=== PATIENT | male | born 1945 | race Caucasian/White ===

== ENCOUNTER 2021-02-16 10:12 | Outpatient (REF) | payer MEDICARE, SELFPAY ==
[2021-02-16 10:16] LABS: MANUAL DIFF FLAG NO
[2021-02-16 10:52] LABS: Basophils Percent Auto 0.4 % (0-2); Eosinophils Absolute Auto 0.1 X10*3/uL (0.0-0.4); Hematocrit 37.6 % (42-52); Hemoglobin 12.8 g/dl (14.0-18.0); Imm Gran Abs Auto 0.02 X10*3/uL (0.00-0.03); Imm Gran Pct Auto 0.3 % (0.0-0.4); Lymphocytes Absolute Auto 1.3 X10*3/uL (1.2-4.9); Lymphocytes Percent Auto 19.2 % (20-40); Mean Corpuscular Hemoglobin 32.4 pg (27.0-33.0); Mean Corpuscular Volume 95.2 fL (80-98); Mean Platelet Volume 10.1 fL (9.4-12.4); Monocytes Absolute Auto 0.6 X10*3/uL (0.1-1.2); Monocytes Percent Auto 9.2 % (2-11); Neutrophils Absolute Auto 4.7 X10*3/uL (2.0-8.3); Neutrophils Percent Auto 69.9 % (45-73); Platelet Count 218 X10*3/uL (160-400); Red Blood Count 3.95 X10*6/uL (4.60-5.80); Red Cell Distribution Width 13.2 % (11.0-16.0); White Blood Count 6.8 X10*3/uL (4.8-10.8)
[2021-02-16 11:02] LABS: Glucose Urine UA NEG (NEG); Leukocyte Esterase Urine NEG (NEG); Nitrite Urine NEG (NEG); PH 6.5 (5.0-8.0); Urine Blood NEG (NEG); Urine Ketones NEG (NEG); Urine Protein NEG (NEG-TRACE)
[2021-02-16 11:03] LABS: Appearance Urine CLEAR; Color Urine YELLOW
[2021-02-16 11:08] LABS: Alanine Aminotransferase 19 U/L (0-40); Albumin Level 3.9 g/dL (3.5-5.0); Alkaline Phosphatase 45 U/L (39-117); Anion Gap 11 (12-20); Aspartate Amino Transferase 19 U/L (5-37); Bilirubin Total 0.8 mg/dL (0.0-1.0); Blood Urea Nitrogen 16 mg/dL (9-16); Calcium 8.8 mg/dL (8.4-10.2); Carbon Dioxide 27 mmol/L (22-29); Chloride 105 mmol/L (96-108); Cholesterol 236 mg/dL; Estimated Glomerular Filt Rate > 60; Glucose Fasting 102 mg/dL (60-99); HDL Cholesterol 71 mg/dL; LDL Cholesterol Calculated 152 mg/dl; Sodium 139 mmol/L (135-145); Total Protein 6.2 g/dL (6.5-8.0); Triglycerides 69 mg/dL
[2021-02-16 11:28] LABS: PSA,Total (Free>4and<10) 2.68 ng/mL (0.00-4.00)
[2021-02-16 11:29] LABS: Reflex LDLD? No
== END 2021-02-16 10:13 | disposition home or self-care (01) ==
LOC: HO.LNP 10:12
PROVIDERS: Visit Provider Internal Medicine
DX: Z12.5 Encounter for screening for malignant neoplasm of prostate (principal); E78.00 Pure hypercholesterolemia, unspecified; I10 Essential (primary) hypertension; N40.0 Benign prostatic hyperplasia without lower urinary tract symptoms
CPT/HCPCS: 80053; 80061; 81003; 84153; 85025

== ENCOUNTER 2021-03-23 10:39 | Outpatient (REF) | payer MEDICARE, SELFPAY ==
[2021-03-23 10:43] LABS: MANUAL DIFF FLAG NO
[2021-03-23 11:41] LABS: Basophils Percent Auto 0.4 % (0-2); Eosinophils Absolute Auto 0.1 X10*3/uL (0.0-0.4); Eosinophils Percent Auto 1.9 % (0-4); Hematocrit 37.7 % (42-52); Imm Gran Abs Auto 0.02 X10*3/uL (0.00-0.03); Imm Gran Pct Auto 0.3 % (0.0-0.4); Lymphocytes Absolute Auto 1.6 X10*3/uL (1.2-4.9); Lymphocytes Percent Auto 24.5 % (20-40); Mean Corpuscular HGB Conc 34.5 g/dl (31.0-36.0); Mean Corpuscular Volume 95.7 fL (80-98); Monocytes Absolute Auto 0.6 X10*3/uL (0.1-1.2); Monocytes Percent Auto 9.4 % (2-11); Neutrophils Absolute Auto 4.3 X10*3/uL (2.0-8.3); Neutrophils Percent Auto 63.5 % (45-73); Platelet Count 222 X10*3/uL (160-400); Red Blood Count 3.94 X10*6/uL (4.60-5.80); Red Cell Distribution Width 12.9 % (11.0-16.0); White Blood Count 6.7 X10*3/uL (4.8-10.8)
[2021-03-23 12:24] LABS: Iron 95 mcg/dL (45-160); Percent Iron Saturation 31 % (15-50); Total Iron Binding Capacity 302 mcg/dL (228-428); Unsaturated Iron Binding 207 ug/dL
[2021-03-23 13:29] LABS: Folate 18.9 ng/mL (> or = 4.0); Vitamin B12 426 pg/mL (200-900)
== END 2021-03-23 10:40 | disposition home or self-care (01) ==
LOC: HO.LNP 10:39
PROVIDERS: Visit Provider Internal Medicine
DX: D64.9 Anemia, unspecified (principal)
CPT/HCPCS: 82607; 82746; 83540; 85025

== ENCOUNTER 2021-09-28 10:20 | Outpatient (REF) | payer MEDICARE, SELFPAY ==
[2021-09-28 10:22] LABS: MANUAL DIFF FLAG NO
[2021-09-28 10:39] LABS: Basophils Percent Auto 0.3 % (0-2); Eosinophils Percent Auto 0.2 % (0-4); Hematocrit 40.6 % (42.0-52.0); Hemoglobin 13.8 g/dl (14.0-18.0); Imm Gran Abs Auto 0.03 X10*3/uL (0.00-0.03); Imm Gran Pct Auto 0.3 % (0.0-0.4); Lymphocytes Absolute Auto 1.9 X10*3/uL (1.2-4.9); Mean Corpuscular Hemoglobin 31.9 pg (27.0-33.0); Monocytes Absolute Auto 0.8 X10*3/uL (0.1-1.2); Monocytes Percent Auto 8.1 % (2-11); Neutrophils Absolute Auto 6.6 x10*3/uL (2.0-8.3); Neutrophils Percent Auto 71.1 % (45-73); Platelet Count 278 X10*3/uL (160-400); Red Blood Count 4.32 X10*6/uL (4.60-5.80); Red Cell Distribution Width 12.3 % (11.0-16.0); White Blood Count 9.3 X10*3/uL (4.8-10.8)
[2021-09-28 11:16] LABS: Iron 112 mcg/dL (45-160); Percent Iron Saturation 32 % (15-50); Total Iron Binding Capacity 353 mcg/dL (228-428); Unsaturated Iron Binding 241 ug/dL
[2021-09-28 18:40] LABS: Folate 16.8 ng/mL (> or = 4.0); Vitamin B12 472 pg/mL (200-900)
== END 2021-09-28 10:21 | disposition home or self-care (01) ==
LOC: HO.LNP 10:20
PROVIDERS: Visit Provider Internal Medicine
DX: D50.9 Iron deficiency anemia, unspecified (principal)
CPT/HCPCS: 82607; 82746; 83540; 85025

== ENCOUNTER 2022-02-18 10:23 | Outpatient (REF) | payer MEDICARE, SELFPAY ==
[2022-02-18 10:29] LABS: MANUAL DIFF FLAG NO
[2022-02-18 10:59] LABS: Basophils Percent Auto 0.5 % (0-2); Eosinophils Absolute Auto 0.1 X10*3/uL (0.0-0.4); Eosinophils Percent Auto 1.4 % (0-4); Hematocrit 38.8 % (42.0-52.0); Hemoglobin 13.1 g/dl (14.0-18.0); Imm Gran Abs Auto 0.02 X10*3/uL (0.00-0.03); Imm Gran Pct Auto 0.3 % (0.0-0.4); Lymphocytes Absolute Auto 1.6 X10*3/uL (1.2-4.9); Lymphocytes Percent Auto 24.2 % (20-40); Mean Corpuscular HGB Conc 33.8 g/dl (31.0-36.0); Mean Corpuscular Volume 94.6 fL (80.0-98.0); Monocytes Absolute Auto 0.7 X10*3/uL (0.1-1.2); Monocytes Percent Auto 10.6 % (2-11); Neutrophils Absolute Auto 4.2 x10*3/uL (2.0-8.3); Platelet Count 229 X10*3/uL (160-400); Red Cell Distribution Width 13.1 % (11.0-16.0); White Blood Count 6.6 X10*3/uL (4.8-10.8)
[2022-02-18 11:12] LABS: Alanine Aminotransferase 22 U/L (0-40); Albumin Level 4.1 g/dL (3.5-5.0); Alkaline Phosphatase 50 U/L (39-117); Anion Gap 14 (12-20); Aspartate Amino Transferase 23 U/L (5-37); Bilirubin Total 0.8 mg/dL (0.0-1.0); Blood Urea Nitrogen 13 mg/dL (9-16); Calcium 8.7 mg/dL (8.4-10.2); Carbon Dioxide 27 mmol/L (22-29); Chloride 103 mmol/L (96-108); Cholesterol 268 mg/dL; Estimated Glomerular Filt Rate > 60; Glucose Fasting 98 mg/dL (60-99); HDL Cholesterol 60 mg/dL; Iron 79 mcg/dL (45-160); LDL Cholesterol Calculated 189 mg/dl; Percent Iron Saturation 23 % (15-50); Potassium 4.2 mmol/L (3.3-5.1); Sodium 140 mmol/L (135-145); Total Iron Binding Capacity 344 mcg/dL (228-428); Total Protein 6.4 g/dL (6.5-8.0); Triglycerides 98 mg/dL; Unsaturated Iron Binding 265 ug/dL
[2022-02-18 11:33] LABS: Appearance Urine CLEAR; Color Urine STRAW; Glucose Urine UA NEG (NEG); Leukocyte Esterase Urine NEG (NEG); Nitrite Urine NEG (NEG); Urine Blood NEG (NEG); Urine Ketones NEG (NEG); Urine Protein NEG (NEG-TRACE)
[2022-02-18 11:35] LABS: PSA,Total (Free>4and<10) 3.03 ng/mL (0.00-4.00)
[2022-02-18 12:47] LABS: RBC Urine 0 /HPF (0)
== END 2022-02-18 10:24 | disposition home or self-care (01) ==
LOC: HO.LNP 10:23
PROVIDERS: Visit Provider Internal Medicine
DX: Z00.00 Encounter for general adult medical examination without abnormal findings (principal); Z12.5 Encounter for screening for malignant neoplasm of prostate; E78.00 Pure hypercholesterolemia, unspecified; I25.10 Atherosclerotic heart disease of native coronary artery without angina pectoris; I11.0 Hypertensive heart disease with heart failure; I50.22 Chronic systolic (congestive) heart failure; D50.9 Iron deficiency anemia, unspecified; N40.0 Benign prostatic hyperplasia without lower urinary tract symptoms
CPT/HCPCS: 80053; 80061; 81001; 83540; 84153; 85025

== ENCOUNTER 2022-02-25 13:37 | Outpatient (REF) | payer MEDICARE, OTHER, SELFPAY ==
--- NOTE | ~2022-02-25 | XR_ITS ---
EXAMINATION: XR CHEST CLINICAL INFORMATION: Chronic cough COMPARISON: None TECHNIQUE: 2 frontal views and a lateral projection of the chest are obtained for 3 views. FINDINGS: Lungs are clear. There is no airspace consolidation or groundglass opacity or effusion. The costophrenic sulci are well-defined. The heart is normal in size. The vascularity is normal. The hilar and mediastinal contours are unremarkable. There are multilevel degenerative changes thoracic spine with mild disc narrowing and vertebral spurring. Mild loss of height of 4 adjacent mid thoracic vertebrae is present. No visible paraspinal soft tissue swelling. XR/XR chest 2V IMPRESSION: -No airspace consolidation, groundglass opacity, or effusion. -Loss of height 4 adjacent mid thoracic vertebrae. No paraspinal soft tissue swelling. Clinically correlate.
== END 2022-02-25 13:38 | disposition home or self-care (01) ==
LOC: HO.XRAY 13:37
PROVIDERS: PCP Internal Medicine; Visit Provider Internal Medicine
DX: R05.3 Chronic cough (principal)
CPT/HCPCS: 71046

== ENCOUNTER 2022-04-18 11:01 | Outpatient (REF) | payer MEDICARE, OTHER, SELFPAY ==
--- NOTE | ~2022-04-18 | US_ITS ---
EXAMINATION: US VENOUS ULTRASOUND WITH DOPPLER LOWER EXTREMITY, BILATERAL CLINICAL INFORMATION: Calf pain and swelling. Evaluate for deep vein thrombosis. COMPARISON: None TECHNIQUE: Ultrasound of the deep veins is performed from the hip to the calf with compression sonography and color and pulse Doppler assessment. Spectral analysis with color-flow imaging is performed. FINDINGS: The common femoral vein is compressible and exhibits a normal phasic waveform, bilaterally; this suggests that the iliac veins are widely patent above. Within each proximal thigh, the visualized profunda femoris vein is patent. The visualized greater saphenous veins and saphenofemoral junctions are normal. Superficial femoral vein is patent in the proximal, mid and distal aspect of each thigh. Popliteal vein is normal to the level of the trifurcation, bilaterally, and the visualized posterior tibial and peroneal veins are patent. No evidence of Chu's cyst. US/US venous duplex LE IMPRESSION: No evidence of deep vein thrombosis in either lower extremity.
[2022-04-18 16:02] LABS: Blood Urea Nitrogen 18 mg/dL (9-16); Estimated Glomerular Filt Rate > 60
== END 2022-04-18 11:02 | disposition home or self-care (01) ==
LOC: HO.US 11:01
PROVIDERS: PCP Internal Medicine; Visit Provider Internal Medicine
DX: N40.0 Benign prostatic hyperplasia without lower urinary tract symptoms (principal); M79.661 Pain in right lower leg; R60.0 Localized edema
CPT/HCPCS: 36415; 82565; 84520; 93970

== ENCOUNTER 2022-12-12 15:43 | Outpatient (REF) | payer MEDICARE, OTHER, SELFPAY ==
[2022-12-12 15:58] LABS: INTERNATIONAL NORM RATIO 0.9 (0.9-1.1); Prothrombin Time 10.8 SEC (10.0-13.1)
[2022-12-12 15:59] LABS: Hematocrit 40.4 % (42.0-52.0); Hemoglobin 13.8 g/dl (14.0-18.0); Lymphocytes Absolute Auto 0.9 X10*3/uL (1.2-4.9); Lymphocytes Percent Auto 9.2 % (20-40); MANUAL DIFF FLAG NO; Mean Corpuscular HGB Conc 34.2 g/dl (31.0-36.0); Mean Corpuscular Hemoglobin 31.9 pg (27.0-33.0); Mean Corpuscular Volume 93.5 fL (80.0-98.0); Mean Platelet Volume 9.7 fL (9.4-12.4); Monocytes Percent Auto 10.7 % (2-11); Neutrophils Absolute Auto 7.7 x10*3/uL (2.0-8.3); Neutrophils Percent Auto 79.1 % (45-73); Platelet Count 247 X10*3/uL (160-400); Red Blood Count 4.32 X10*6/uL (4.60-5.80); Red Cell Distribution Width 12.8 % (11.0-16.0); White Blood Count 9.8 X10*3/uL (4.8-10.8)
[2022-12-12 16:08] LABS: Alanine Aminotransferase 27 U/L (0-40); Albumin Level 3.7 g/dL (3.5-5.0); Alkaline Phosphatase 47 U/L (39-117); Anion Gap 13 (12-20); Aspartate Amino Transferase 21 U/L (5-37); Bilirubin Total 1.2 mg/dL (0.0-1.0); Blood Urea Nitrogen 26 mg/dL (9-16); Calcium 8.8 mg/dL (8.4-10.2); Carbon Dioxide 23 mmol/L (22-29); Chloride 106 mmol/L (96-108); Estimated Glomerular Filt Rate > 60; Glucose Fasting 102 mg/dL (60-99); Potassium 4.5 mmol/L (3.3-5.1); Sodium 137 mmol/L (135-145)
== END 2022-12-12 15:44 | disposition home or self-care (01) ==
LOC: HO.LNP 15:43
PROVIDERS: Visit Provider Internal Medicine
DX: T14.8XXA Other injury of unspecified body region, initial encounter (principal)
CPT/HCPCS: 80053; 85025; 85610

== ENCOUNTER 2023-01-20 12:05 | Outpatient (REF) | payer MEDICARE, OTHER, SELFPAY | END 2023-01-20 12:06 | disposition home or self-care (01) | LOC: HO.LNP 12:05 | PROVIDERS: Visit Provider Internal Medicine | DX: I10 Essential (primary) hypertension (principal) | CPT/HCPCS: 84520 ==

== ENCOUNTER 2023-02-20 10:58 | Outpatient (REF) | payer MEDICARE, OTHER, SELFPAY ==
[2023-02-20 11:04] LABS: MANUAL DIFF FLAG NO
[2023-02-20 11:25] LABS: Appearance Urine Clear; Color Urine Yellow; Glucose Urine UA Negative (Negative); Leukocyte Esterase Urine Negative (Negative); Nitrite Urine Negative (Negative); Urine Blood Negative (Negative); Urine Ketones Negative (Negative); Urine Protein Negative (Neg-Trace)
[2023-02-20 11:28] LABS: Basophils Absolute Auto 0.1 X10*3/uL (0.0-0.2); Basophils Percent Auto 0.8 % (0-2); Eosinophils Absolute Auto 0.1 X10*3/uL (0.0-0.4); Eosinophils Percent Auto 1.6 % (0-4); Imm Gran Abs Auto 0.01 X10*3/uL (0.00-0.03); Imm Gran Pct Auto 0.2 % (0.0-0.4); Lymphocytes Absolute Auto 1.7 X10*3/uL (1.2-4.9); Lymphocytes Percent Auto 26.8 % (20-40); Mean Corpuscular HGB Conc 34.2 g/dl (31.0-36.0); Mean Corpuscular Hemoglobin 32.3 pg (27.0-33.0); Mean Corpuscular Volume 94.5 fL (80.0-98.0); Monocytes Absolute Auto 0.6 X10*3/uL (0.1-1.2); Neutrophils Absolute Auto 3.8 x10*3/uL (2.0-8.3); Neutrophils Percent Auto 60.6 % (45-73); Platelet Count 254 X10*3/uL (160-400); Red Blood Count 4.02 X10*6/uL (4.60-5.80); White Blood Count 6.3 X10*3/uL (4.8-10.8)
[2023-02-20 11:29] LABS: Bacteria Urine None Seen (None Seen); Hyaline Casts Urine 0-2 /LPF (0-2); RBC Urine 0-2 /HPF (0-2); Squamous Epithelial Cell Urine 0-2 /HPF (0-2); WBC Urine 0-5 /HPF (0-5)
[2023-02-20 12:24] LABS: Alanine Aminotransferase 21 U/L (0-40); Albumin Level 3.9 g/dL (3.5-5.0); Alkaline Phosphatase 43 U/L (39-117); Anion Gap 12 (12-20); Aspartate Amino Transferase 22 U/L (5-37); Bilirubin Total 0.8 mg/dL (0.0-1.0); Blood Urea Nitrogen 15 mg/dL (9-16); Calcium 9.5 mg/dL (8.4-10.2); Carbon Dioxide 27 mmol/L (22-29); Chloride 106 mmol/L (96-108); Cholesterol 246 mg/dL; Estimated Glomerular Filt Rate > 60; Glucose Fasting 90 mg/dL (60-99); HDL Cholesterol 49 mg/dL; Iron 83 mcg/dL (45-160); LDL Cholesterol Calculated 170 mg/dl; Percent Iron Saturation 31 % (15-50); Potassium 4.1 mmol/L (3.3-5.1); Sodium 141 mmol/L (135-145); Total Iron Binding Capacity 272 mcg/dL (228-428); Total Protein 6.6 g/dL (6.5-8.0); Triglycerides 136 mg/dL; Unsaturated Iron Binding 189 ug/dL
[2023-02-20 12:46] LABS: PSA,Total (Free>4and<10) 3.18 ng/mL (0.00-4.00)
== END 2023-02-20 10:59 | disposition home or self-care (01) ==
LOC: HO.LNP 10:58
PROVIDERS: Visit Provider Internal Medicine
DX: Z00.00 Encounter for general adult medical examination without abnormal findings (principal); Z12.5 Encounter for screening for malignant neoplasm of prostate; E78.00 Pure hypercholesterolemia, unspecified; I11.0 Hypertensive heart disease with heart failure; I50.22 Chronic systolic (congestive) heart failure; N40.1 Benign prostatic hyperplasia with lower urinary tract symptoms; D50.9 Iron deficiency anemia, unspecified
CPT/HCPCS: 80053; 80061; 81001; 83540; 84153; 85025

== ENCOUNTER → 2023-04-01 14:25 | Outpatient (BNV) | payer MEDICARE, OTHER, SELFPAY | PROVIDERS: PCP Internal Medicine; Visit Provider Internal Medicine | DX: R23.3 Spontaneous ecchymoses (principal) | CPT/HCPCS: 99204; 99212 ==

== ENCOUNTER 2023-05-26 12:44 | Outpatient (AMB) | payer MEDICARE, OTHER, SELFPAY ==
[2023-05-26 12:53] VITALS: BP 130/82; PULSE 69; BMI 30.2
--- NOTE | 2023-05-26 12:53 | A.OFFVIS_ITS ---
Intake Vital Signs 05/26/23 12:53 Height 6 ft 1 in Weight 229 lb 4.492 oz BMI 30.2 BP 130/82 Blood Pressure Location Lt brachial Position Sitting Pulse 69 Intake Visit Reasons: NPV/Decreased cardiac ejection fraction/G. 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 Computed Tomography Technician Required: No Allergies No Known Allergies Allergy (Unverified 03/30/20 15:53) Medication List - Last Reconciled 05/26/23 by Elier Roberts MD amlodipine 10 mg PO DAILY aspirin 81 mg PO DAILY carvedilol 12.5 mg PO BID [id number] Q3-T3-H-mag--zinc 07-05-89-250 mg 300 caps PO DAILY finasteride 5 mg PO DAILY furosemide 20 mg PO DAILY irbesartan 300 mg PO DAILY multivitamin 1 tab PO DAILY spironolactone 12.5 mg PO DAILY tamsulosin 0.8 mg PO DAILY HPI HPI Comments History of Present Illness Details Thank you for referring Jake in cardiology consultation today for management of his cardiovascular condition. He is a 77-year-old male with prior history of CAD with inferior myocardial infarction 1994 which was managed with PTCA but subsequently was told that that artery had completely occluded 3 or 4 years later. He has known history of ischemic cardiomyopathy with low normal LVEF of 50% by last workup done at an outside facility. He also had ischemic workup at that time which had shown infarcted myocardium predominantly without any ischemia. Do not have records from January. He has been taking all his medications. He has been maintaining his general day-to-day life activities. Does not exercise on regular basis. Denies any clear orthopnea, PND. Has not been daily measuring his weight. However takes all his medications. Denies any lightheadedness, syncope. Denies any prolonged palpitations irregular heartbeat. Denies any exertional chest pain. Patient's symptoms with myocardial infarction with shortness of breath. He was recently at [facility] with similar symptoms acute shortness of breath and that time was told that his LV EF was about 20-25%. Subsequent workup at the outside private facility shows LVEF of again 50%. Negative myocardial ischemia but shows old myocardial infarct. [facility] Medical History (Updated 05/26/23 @ 14:30 by Elier Roberts MD) HTN (hypertension) Ischemic cardiomyopathy CAD (coronary artery disease) Heart attack Surgical History History of appendectomy History of repair of rotator cuff History of thyroidectomy Family History (Reviewed 05/26/23 @ 14: by Elier Roberts MD) Father Heart attack Sister Skin cancer Mother Colon cancer Social History (Reviewed 05/26/23 @ 14: by Elier Roberts MD) Household Members: Spouse Housing: House Patient Tobacco Use Status: Former Tobacco user Tobacco use type: Cigarette service: Yes ([employer]) Current occupational status: retired Review of Systems Const Denies chills, Denies daytime sleepiness, Denies fatigue, Denies fever(s), Denies frequent falls, Denies poor appetite, Denies snoring, Denies stops breathing during sleep, Denies weakness, Denies weight gain and Denies weight loss Eyes Denies loss of vision ENT Denies dizziness and Denies hearing loss Card Denies chest pain, Denies claudication, Denies leg edema, Denies lightheadedness, Denies palpitations, Denies dyspnea, Denies dyspnea on exertion and Denies orthopnea Resp Denies cough, Denies excessive phlegm production, Denies dyspnea, Denies dyspnea on exertion, Denies snoring and Denies wheezing GI Denies abdominal pain, Denies hematochezia, Denies change in bowel habits, Denies nausea and Denies vomiting Denies dysuria and Denies urinary frequency Musc Denies arthralgias, Denies muscle weakness, Denies numbness and Denies other (frequent falls) Skin/Breast Denies nail changes and Denies rash Neuro Denies Abnormal speech present, Denies dizziness, Denies frequent falls, Denies loss of vision, Denies memory loss, Denies numbness and Denies weakness Psych Denies depression and Denies memory loss Endo Denies fatigue and Denies palpitations Cas/Lymph Reports easy bruising and Reports other (anemia) Aller/Immun Denies wheezing Physical Exam Vital Signs: Last Vital Signs Pulse 69 05/26/23 12:53 BP 130/82 05/26/23 12:53 BMI result Body Mass Index 30.2 Const General: cooperative, comfortable, no acute distress, alert and awake Nutritional Appearance: obese Orientation/consciousness: patient oriented x3 Limitations: no limitations Neck Neck: Yes trachea midline, Yes supple and Yes no JVD Resp Effort & Inspection: normal respiratory effort Auscultation: clear to auscultation bilaterally Cardio Jugular venous distension: no JVD Palpation: abnormal PMI displaced PMI Rate: regular rate Rhythm: regular rhythm Heart sounds: S1 normal heart sound present, S2 normal heart sound present, no click, no gallops, no murmurs and no rubs GI Auscultation: normal bowel sounds Skin General skin exam: no rashes or lesions noted Neuro General: patient oriented x3 and no focal motor deficits Speech: No Abnormal speech present Extrem General: Yes no clubbing, cyanosis or edema Office Procedures EKG Details: EKG shows normal sinus rhythm with sinus arrhythmia with inferior Q-waves with inferior T-wave inversions [id number], Complete Assessment & Plan Assessment & Plan (1) CAD (coronary artery disease): Code(s): I25.10 - Atherosclerotic heart disease of [place] coronary artery without angina pectoris Plan: CAD with prior inferior myocardial infarction 28 years ago. No recurrent symptoms at this point time. Patient did have sudden-onset shortness of breath recently and was at [facility] with negative ischemic workup although with sudden reduction LV EF. Could be stress-induced cardiomyopathy. He is currently on good medical therapy. Continue low-dose aspirin therapy for life. Blood pressure is currently well optimized. Currently not on any statin therapy. Should strongly consider high-intensity statin therapy as there is no reported allergies. Target goal LDL less than 70 mg/dL, closer to 60 mg/dL. (2) Ischemic cardiomyopathy: Code(s): I25.5 - Ischemic cardiomyopathy Plan: Ischemic cardiomyopathy low normal LVEF with severely dilated left ventricle with remodeling. Clinically without any signs or symptoms of heart failure. Currently on low-dose diuretic therapy. Management of heart failure and ischemic cardiomyopathy was discussed. Daily weight monitoring avoidance of salt loading was discussed. Continue current neurohormonal modulation with carvedilol, irbesartan as well as spironolactone therapy. Advised to call me with worsening symptoms. Will follow up in the clinic in 6 months time, sooner p.r.n.. Thank you for allowing me to partake in his care Coding Level of Care Code New Pt Level 4 (45595) Diagnoses CAD (coronary artery disease) I25.10 Ischemic cardiomyopathy I25.5 CPT Codes EKG - CPT: 31400-[id number], Complete ([id number])
== END 2023-05-26 13:33 | disposition home or self-care (01) ==
PROVIDERS: PCP Internal Medicine; Visit Provider Internal Medicine Cardiovascular Disease
DX: I25.10 Atherosclerotic heart disease of native coronary artery without angina pectoris (principal); I25.5 Ischemic cardiomyopathy
CPT/HCPCS: 93010; 99204

== ENCOUNTER → 2023-05-26 12:44 | Outpatient (BNVA) | payer MEDICARE, OTHER, SELFPAY | PROVIDERS: PCP Internal Medicine; Visit Provider Internal Medicine Cardiovascular Disease | DX: I25.10 Atherosclerotic heart disease of native coronary artery without angina pectoris (principal); I25.5 Ischemic cardiomyopathy | CPT/HCPCS: 93005; 99202 ==

== ENCOUNTER 2023-12-01 09:40 | Outpatient (REF) | payer MEDICARE, OTHER, SELFPAY ==
[2023-12-01 11:20] LABS: Hematocrit 39.7 % (42.0-52.0); Hemoglobin 13.6 g/dl (14.0-18.0); Mean Corpuscular HGB Conc 34.3 g/dl (31.0-36.0); Mean Corpuscular Hemoglobin 31.2 pg (27.0-33.0); Mean Corpuscular Volume 91.1 fL (80.0-98.0); Mean Platelet Volume 9.5 fL (9.4-12.4); Platelet Count 270 X10*3/uL (160-400); Red Blood Count 4.36 X10*6/uL (4.60-5.80); Red Cell Distribution Width 12.9 % (11.0-16.0); White Blood Count 9.9 X10*3/uL (4.8-10.8)
[2023-12-01 11:22] LABS: Prothrombin Time 11.8 SEC (11.1-13.3)
[2023-12-01 11:53] LABS: B Type Natriuretic Peptide 175 pg/mL (<100)
[2023-12-01 12:06] LABS: Anion Gap 15 (12-20); Blood Urea Nitrogen 28 mg/dL (9-16); Calcium 8.6 mg/dL (8.4-10.2); Carbon Dioxide 25 mmol/L (22-29); Chloride 102 mmol/L (96-108); Estimated Glomerular Filt Rate > 60; Glucose Random 94 mg/dL (60-115); Potassium 4.6 mmol/L (3.3-5.1); Sodium 137 mmol/L (135-145)
== END 2023-12-01 09:41 | disposition home or self-care (01) ==
LOC: HO.LAB 09:40
PROVIDERS: PCP Internal Medicine; Visit Provider Internal Medicine Cardiovascular Disease
DX: R07.9 Chest pain, unspecified (principal); I25.10 Atherosclerotic heart disease of native coronary artery without angina pectoris
CPT/HCPCS: 36415; 80048; 83880; 85027; 85610; 93005; 99212

== ENCOUNTER 2023-12-01 09:40 | Outpatient (AMB) | payer MEDICARE, OTHER, SELFPAY ==
[2023-12-01 09:42] VITALS: BP 140/70; PULSE 59; BMI 32.0
--- NOTE | 2023-12-01 09:42 | A.OFFVIS_ITS ---
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 He said over the last 2 weeks has worsening symptoms with minimal exertion been complaining of chest tightness. Also has worsening shortness of breath. For about 2 weeks he is started using his CPAP therapy and says at nighttime he breathe better. However today appears to be mildly short of breath. He has had to use 2 sublingual nitroglycerin 1 time and he was having chest tightness with eventual resolution of his chest pain/ tightness. He has been taking all his medications. Denies worsening leg edema. No prolonged palpitation irregular heartbeat. His LDL is not well optimized at 173. [facility] Medical History (Updated 12/01/23 @ 10:06 by Elier Roberts MD) HTN (hypertension) Ischemic cardiomyopathy CAD (coronary artery disease) Heart attack Surgical History History of appendectomy History of repair of rotator cuff History of thyroidectomy Family History Father Heart attack Sister Skin cancer Mother Colon cancer Social History Household Members: Spouse Housing: House Patient Tobacco Use Status: Former Tobacco user Tobacco use type: Cigarette service: Yes ([employer]) Current occupational status: retired Review of Systems Const Denies chills, Denies fatigue, Denies fever(s), Denies frequent falls, Denies weakness, Denies weight gain and Denies weight loss ENT Denies dizziness Card Denies chest pain, Denies leg edema, Denies lightheadedness, Denies palpitations, Denies dyspnea, Denies dyspnea on exertion, Denies orthopnea and Denies other (loss of consciousness) Resp Denies cough, Denies dyspnea and Denies dyspnea on exertion GI Denies hematochezia and Denies change in stool character Musc Denies abnormal gait, Denies muscle weakness, Denies numbness, Denies radiating pain into limb and Denies tingling Neuro Denies Abnormal speech present, Denies abnormal gait, Denies dizziness, Denies frequent falls, Denies numbness, Denies tingling and Denies weakness Endo Denies fatigue and Denies palpitations Physical Exam Vital Signs: Last Vital Signs Pulse 59 12/01/23 09:42 BP 140/70 H 12/01/23 09:42 BMI result Body Mass Index 32.0 Const General: cooperative, comfortable, alert, awake and in distress mild and respiratory Nutritional Appearance: obese Orientation/consciousness: patient oriented x3 Limitations: no limitations Neck Neck: Yes trachea midline, Yes supple and Yes no JVD Resp Effort & Inspection: normal respiratory effort Auscultation: clear to auscultation bilaterally Cardio Jugular venous distension: no JVD Palpation: abnormal PMI displaced PMI Rate: regular rate Rhythm: regular rhythm Heart sounds: S1 normal heart sound present, S2 normal heart sound present, no click, no gallops, no murmurs and no rubs GI Auscultation: normal bowel sounds Skin General skin exam: no rashes or lesions noted Neuro General: patient oriented x3 and no focal motor deficits Speech: No Abnormal speech present Extrem General: Yes no clubbing, cyanosis or edema Office Procedures EKG Details: EKG shows normal sinus rhythm with sinus arrhythmia with PVCs [id number], Complete Assessment & Plan Assessment & Plan (1) Exertional chest pain: Code(s): R07.9 - Chest pain, unspecified Category: Medical Plan: Patient with recent onset worsening symptoms exertional shortness of breath associated chest tightness regarding sublingual nitroglycerin. This highly suggestive of progressive coronary artery disease. I would suggest him to undergo cardiac catheterization for further evaluation for progressive coronary artery disease management based on the findings. Meanwhile I have advised to start him on isosorbide 30 mg daily. I discussed with him the risks, benefits, alternatives procedure. He understands agrees. Continue other medications as before. See below for management of coronary artery disease. Will also obtain echocardiogram to assess for worsening LV systolic and diastolic function. Currently on good medical therapy for the same. (2) CAD (coronary artery disease): Code(s): I25.10 - Atherosclerotic heart disease of [place] coronary artery without angina pectoris Category: Medical Plan: CAD with prior IN more than 20 years ago. No interventions performed. Last myocardial perfusion imaging showed inferior inferoseptal scar although his symptoms extremely concerning for progressive coronary artery disease. Will pursue cardiac catheterization above. Further treatment based on the findings. Continue low-dose aspirin therapy. He has been intolerant to statins and he said multiple statins were tried in the past all leading to muscle aches. Will therefore take the liberty to start him on Repatha to target goal LDL less than 70 mg/dL. Continue aggressive blood pressure control which currently appears to be well controlled. If he has progressive symptoms including symptoms at rest is advised to come to emergency care. Will follow up in the clinic in 2 months time, sooner p.r.n.. Thank you for allowing me to partake in his care Orders: Orders B Type Natriuretic Peptide Today R07.9 - Chest pain, unspecified Prothrombin Time INR Today R07.9 - Chest pain, unspecified CA echo transthoracic complete Today I25.5 - Ischemic cardiomyopathy Cardiac Cath BHAVNA Diagnostic 2 Weeks R07.9 - Chest pain, unspecified Basic Metabolic Panel Today R07.9 - Chest pain, unspecified Complete Blood Count no Diff Today R07.9 - Chest pain, unspecified Medications: New evolocumab (Repatha SureClick) 140 mg subcut Q2W 2 mL 5RF isosorbide mononitrate ER 30 mg PO DAILY 30 tabs 5RF Coding Level of Care Code Est Pt Level 4 (61828) Diagnoses Exertional chest pain R07.9 CAD (coronary artery disease) I25.10 CPT Codes EKG - CPT: 62410-[id number], Complete ([id number])
== END 2023-12-01 10:14 | disposition home or self-care (01) ==
PROVIDERS: PCP Internal Medicine; Visit Provider Internal Medicine Cardiovascular Disease
DX: R07.9 Chest pain, unspecified (principal); I25.10 Atherosclerotic heart disease of native coronary artery without angina pectoris
CPT/HCPCS: 93010; 99214

== ENCOUNTER → 2023-12-11 10:07 | Outpatient (BNVA) | payer MEDICARE, OTHER, SELFPAY | PROVIDERS: PCP Internal Medicine; Visit Provider Internal Medicine Cardiovascular Disease ==

== ENCOUNTER → 2023-12-25 23:59 | Outpatient (BNV) | payer MEDICARE, OTHER, SELFPAY | PROVIDERS: PCP Internal Medicine; Visit Provider Internal Medicine Cardiovascular Disease | DX: I25.118 Atherosclerotic heart disease of native coronary artery with other forms of angina pectoris (principal) | CPT/HCPCS: 92928; 93458; 93571; 99152 ==

== ENCOUNTER → 2023-12-30 09:32 | Outpatient (REF) | payer MEDICARE, OTHER, SELFPAY ==
--- NOTE | 2023-12-30 09:35 | CA_ITS ---
Transthoracic Echocardiogram Patient (Last, First, Middle): Jake House W Gender: Male Date of : 1945 Age: 78 Procedure Date: 12/30/2023 Procedure Type: Transthoracic Echocardiogram Location: OP Height: 185.42 cm Weight: 106.6 kg BSA: 2.30 m2 Heart Rate: bpm BP: 122 / 68 mmHg Telephone Order Supervisor: TO Referring MD: Elier Roberts MD Symptoms: I25.5 - Ischemic cardiomyopathy Study Quality: Fair/Contrast Conclusions: - The left ventricular systolic function is moderately decreased. The visually estimated ejection fraction is between 35-40%. - The inferolateral wall and basal inferior segment are akinetic. - No obvious valvular pathology seen on this study. Findings Procedure Information Contrast agent, definity, is being given per protocol without apparent complications. Left Ventricle Moderately increased left ventricular cavity size. The left ventricular systolic function is moderately decreased. The visually estimated ejection fraction is between 35-40%. There is evidence of regional wall motion abnormalities. Evidence suggests grade I (mild) diastolic dysfunction. There is mild septal asymmetric hypertrophy. LV peak GLS -15.8%. Wall Motion Rest Echo Findings The inferolateral wall and basal inferior segment are akinetic. Right Ventricle Normal right ventricular cavity size and systolic function. Atria The left atrium is mildly dilated. The right atrium is normal in size. Aortic Valve There is a normal trileaflet aortic valve. There is mild calcification of the aortic valve. There is no aortic valve stenosis. There is no aortic valve regurgitation. Mitral Valve The mitral valve appears normal. There is trace mitral valve regurgitation. There is no mitral valve stenosis. Pulmonic Valve The pulmonic valve is likely normal. There is trace pulmonic valve regurgitation. Tricuspid Valve Normal tricuspid valve structure. There is mild tricuspid valve regurgitation. There is no evidence of pulmonary hypertension. Great Vessels The asc aorta is normal in size. Venous The inferior vena cava is mildly dilated and collapses greater than 50% with inspiration. Pericardium/Pleural There is no evidence of pericardial effusion. Prior Study Comparison No prior study available for comparison. Recommendations, Care & Conclusions No obvious valvular pathology seen on this study. Measurements 2D Linear Measurements IVSd: 1.19 0.6-0.9/0.6-1.0 cm LVIDd: 6.15 3.9-5.3/4.2-5.9 cm LVIDd Index: 2.67 2.4-3.2/2.2-3.1 cm/m2 LVIDs: 5.12 2.0-3.6 cm LVPWd: 0.70 0.7-1.1 cm LA Diam: 4.30 2.7-3.8/3.0-4.0 cm LAIDs Index: 1.87 1.5-2.3 cm/m2 LV Mass: 297.79 67-162/88-224 g LV Mass Index: 129.47 43-95/49-115 g/m2 LVOT Diam: 2.20 3.0+(-)1.3 cm 2D Systolic Function EF 4C: 40.90 >55% EF 2C: 39.50 >55% EF BiP: 39.80 >55% Mitral Valve MV VTI: 0.41 MV Pk Duncan: 1.07 MV Mn Duncan: 0.62 MV Pk Grad: 5.00 MV Mn Grad: 2.00 MV Pk E: 0.58 MV PK A: 0.74 MV Decel Time: 281.00 E/A: 0.80 E'Lateral: 5.55 E'Medial: 3.92 E/E' Med: 14.70 E/E' Lat: 10.40 PHT: 82.00 MVA PHT: 2.68 MVA Continuity: 1.89 Decel Saline: 2.06 Aortic Valve AoV Pk Duncan: 1.68 AoV Mn Duncan: 1.13 AoV VTI: 0.41 AoV Pk Grad: 11.00 Aov Mn Grad: 6.00 YIN Cont.VTI: 1.89 LVOT LVOT Pk Duncan: 0.87 LVOT Mn Duncan: 0.51 LVOT VTI: 0.20 LVOT Pk Grad: 3.00 LVOT Mn Grad: 1.00 LVOT Diam: 2.20 LVOT Area: 3.80 Diastolic Function MV Pk E: 0.58 MV Pk A: 0.74 E/A: 0.80 E'Medial: 3.92 E/E' Med: 14.70 E' Laterial: 5.55 E/E' Lat: 10.40 Right Ventricle TAPSE (mm): 23.20 TVS' Duncan: 15.40 Tricuspid Valve TR Pk Duncan: 2.46 TR Pk Grad: 24.00 RA Press: 8.00 RVSP: 32.00 Great Vessels Aorta Sinus of Valsalva: 3.70 2.0-3.5 cm Ao Asc: 3.80 2.1-3.4 cm Updated in Other Vendor System with Status of Final Manoj Velasquez MD electronically signed on 12/30/2023 1:05:15 PM with status of Final
== END ==
LOC: HO.CARD 09:32
PROVIDERS: PCP Internal Medicine; Visit Provider Internal Medicine Cardiovascular Disease
DX: I25.5 Ischemic cardiomyopathy (principal)
CPT/HCPCS: 93306; 93356; Q9957

== ENCOUNTER → 2023-12-30 09:35 | Outpatient (BNV) | payer MEDICARE, OTHER, SELFPAY | PROVIDERS: PCP Internal Medicine; Visit Provider Internal Medicine | DX: I25.5 Ischemic cardiomyopathy (principal); I36.1 Nonrheumatic tricuspid (valve) insufficiency; I35.8 Other nonrheumatic aortic valve disorders | CPT/HCPCS: 93306; 93356 ==

== ENCOUNTER 2024-01-08 08:26 | Outpatient (AMB) | payer MEDICARE, OTHER, SELFPAY ==
[2024-01-08 08:37] VITALS: BP 120/60; PULSE 57; BMI 31.2
--- NOTE | 2024-01-08 08:37 | A.OFFVIS_ITS ---
Vital Signs 01/08/24 08:37 Height 6 ft 1 in Weight 236 lb 12.423 oz BMI 31.2 BP 120/60 Blood Pressure Location Lt brachial Position Sitting Pulse 57 Pulse Source Pulse Oximeter Intake Visit Reasons: 2 wk s/p cath [employer] Required: No Accompanied by: Spouse Allergies No Known Allergies Allergy (Verified 07/18/23 10:27) Medication List - Last Reconciled 01/08/24 by Karyn Luong NP-C amlodipine 10 mg PO DAILY aspirin 81 mg PO DAILY carvedilol 12.5 mg PO BID [id number]--[id number] 93-44-56-250 mg 300 caps PO DAILY evolocumab (Repatha SureClick) 140 mg subcut Q2W 90 days finasteride 5 mg PO DAILY furosemide 20 mg PO DAILY irbesartan 300 mg PO DAILY isosorbide mononitrate ER 30 mg PO DAILY multivitamin 1 tab PO DAILY nitroglycerin mg sublingual spironolactone 12.5 mg PO DAILY tamsulosin 0.4 mg PO BID ticagrelor (Brilinta) 90 mg PO BID HPI HPI 2 wk s/p cath: Details: Jake is a 78-year-old male with past medical history of hypertension, hyperlipidemia, sleep apnea, CAD with remote inferior CT, ischemic cardiomyopathy who reported increased shortness of breath and exertional chest tightness on last visit. He was started on isosorbide which he says he did not tolerate. He then underwent cardiac catheterization receiving 2 stents to the LAD and he now presents for follow-up. Today he reports that he continues to have shortness of breath at rest and with activity. He feels his breathing is worse since his procedure. He has not had any clear orthopnea, PND, edema. He is wearing his CPAP at night. He has no cough, fever or signs of illness. He has not had recurrent chest tightness since his cardiac catheterization. No palpitations, lightheadedness, presyncope, syncope, falls. Taking meds as directed. He feels the Brilinta is giving him loose stools. He has been doing only light physical activity. He plans to do cardiac rehab at [facility]. is present. [facility] Medical History HTN (hypertension) Ischemic cardiomyopathy CAD (coronary artery disease) Heart attack Surgical History History of appendectomy History of repair of rotator cuff History of thyroidectomy Family History Father Heart attack Sister Skin cancer Mother Colon cancer Social History Household Members: Spouse Housing: House Patient Tobacco Use Status: Former Tobacco user Tobacco use type: Cigarette service: Yes ([employer]) Current occupational status: retired Review of Systems Const All systems reviewed & are unremarkable except as noted in HPI and below Denies chills, Denies fatigue, Denies fever(s), Denies frequent falls, Denies weakness, Denies weight gain and Denies weight loss ENT Denies dizziness Card Details: chest tightness has not reoccurred Denies chest pain, Denies leg edema, Denies lightheadedness, Denies palpitations, Reports dyspnea and Reports dyspnea on exertion Resp Denies cough, Reports dyspnea and Reports dyspnea on exertion GI Denies hematochezia Musc Details: right radial cath site feels good Denies abnormal gait, Denies muscle weakness, Denies numbness, Denies radiating pain into limb and Denies tingling Skin/Breast Details: easy bruising Neuro Denies abnormal gait, Denies dizziness, Denies frequent falls, Denies numbness, Denies tingling and Denies weakness Endo Denies fatigue and Denies palpitations Physical Exam Vital Signs: Last Vital Signs Pulse 57 01/08/24 08:37 BP 120/60 01/08/24 08:37 BMI result Body Mass Index 31.2 Const General: cooperative, healthy appearing, comfortable and no acute distress Orientation/consciousness: patient oriented x3 Neck Neck: Yes normal visual inspection and Yes no JVD Resp Effort & Inspection: normal respiratory effort Auscultation: clear to auscultation bilaterally, no rales, no rhonchi and no wheezes Cardio Jugular venous distension: no JVD Rate: regular rate Rhythm: regular rhythm Heart sounds: S1 normal heart sound present, S2 normal heart sound present, no murmurs and no rubs Neuro General: patient oriented x3 Extrem Other: sock markings General: Yes normal to inspection and No no pedal edema Psych Appearance: grossly normal Mental Status: mental status grossly normal Speech and movement: Normal speech and movement present Assessment & Plan Assessment & Plan (1) CAD (coronary artery disease): Code(s): I25.10 - Atherosclerotic heart disease of [place] coronary artery without angina pectoris Category: Medical Plan: History of CAD with remote inferior CT, approximately 20 years ago with residual ischemic cardiomyopathy. Notes indicate a cardiac catheterization from 2006 shows DIRECTOR OF TEACHING AND LEARNING of the RCA with [id number] collaterals. He does have cardiac risk factors of hypertension, hyperlipidemia, mild obesity, known CAD. He reported increasing shortness of breath and exertional chest tightness on his last visit. He had an episode of tightness that was relieved by nitroglycerin. He was started on isosorbide last visit but tells me he did not tolerate that medication. An echocardiogram was done on 12/30/2023 showing EF 35-40%, inferior lateral and basal inferior wall akinetic, no valve abnormalities. He had a cardiac catheterization on 12/30/23 showing diffuse LAD stenosis with angioplasty and RITESH placed to the mid and distal LAD, ongoing DIRECTOR OF TEACHING AND LEARNING of the RCA with [id number] collaterals. He was put on Brilinta with his aspirin. Today he reports that he is noticing increasing shortness of breath since his catheterization procedure. He also reports loose stools that he feels is from Brilinta. He has not had recurrent chest tightness since the procedure. His right radial catheterization site is well healed. On exam he has no signs of decompensated heart failure. His shortness of breath may be from Brilinta. Will have him stop Brilinta and start on clopidogrel with load of 300 mg followed by 75 mg daily. Continue aspirin indefinitely. Continue carvedilol, amlodipine as antianginals. He will start in cardiac rehab at [facility] in the near future. will be calling for an appointment. Signs and symptoms of angina reviewed with him. Emergency care if ever needed for symptoms. Cardiology follow-up in 1 month to re-evaluate, sooner if needed. (2) Shortness of breath: Code(s): R06.02 - Shortness of breath Category: Medical Plan: As above (3) Exertional chest pain: Code(s): R07.9 - Chest pain, unspecified Category: Medical Plan: Resolved post LAD stenting (4) S/P cardiac cath: Comment: Cardiac catheterization 12/25/2023 showing diffuse LAD stenosis in the mid to distal vessel, angioplasty and RITESH placed to mid and distal LAD, DIRECTOR OF TEACHING AND LEARNING of the RCA with [id number] collaterals. Code(s): Z98.890 - Other specified postprocedural states Category: Surgical Plan: Right radial catheterization site well healed with easily palpable radial pulse and right hand assessment normal (5) Stented coronary artery: Comment: LAD, 2 RITESH, 12/25/2023 Code(s): Z95.5 - Presence of coronary angioplasty implant and graft Category: Surgical Plan: 2 RITESH to the LAD, mid and distal (6) Ischemic cardiomyopathy: Code(s): I25.5 - Ischemic cardiomyopathy Category: Medical Plan: History of ischemic cardiomyopathy. Recent echocardiogram showing EF 35-40%, no prior echo in our system for comparison. He is on carvedilol, irbesartan and Aldactone for neurohormonal modulation. He is on low-dose Lasix. Labs done 12/01/2023 shows potassium 4.6, creatinine 0.82, BNP 175. On exam he does not appear fluid overloaded. If he still has shortness of breath after changing from Brilinta to clopidogrel will consider increasing diuretic dose to see if this will help his symptom. He denies any known history of COPD, asthma, emphysema. (7) HTN (hypertension): Code(s): I10 - Essential (primary) hypertension Category: Medical Plan: Initially mildly elevated this visit with blood pressure 140/64. Recheck at end of visit 120/ 60. Continue on carvedilol, irbesartan, Aldactone. (8) HLD (hyperlipidemia): Code(s): E78.5 - Hyperlipidemia, unspecified Category: Medical Plan: [place] LDL goal less than 70. He has been intolerant to statins. He is now on Repatha and is about to take his 3rd dose. Will plan to check a lipid profile after 6 doses. Order placed in system and patient informed. Plan Time spent on chart review, documentation, interview and assessment Orders: Orders Lipid Panel 3 Weeks E78.5 - Hyperlipidemia, unspecified Medications: New clopidogrel On the First day ONLY take 4 tablets ( 300mg) - then take one tablet daily ( 75mg) Stopping Brilinta 75 mg PO DAILY 30 tabs 2RF Discontinued isosorbide mononitrate ER Discontinued Reason: Doctor's Order 30 mg PO DAILY 30 tabs 5RF Coding Level of Care Code Est Pt Level 4 (11909) Diagnoses CAD (coronary artery disease) I25.10 Shortness of breath R06.02 Exertional chest pain R07.9 S/P cardiac cath Z98.890 Stented coronary artery Z95.5 Ischemic cardiomyopathy I25.5 HTN (hypertension) I10 HLD (hyperlipidemia) E78.5 Time Spent (min) 36
== END 2024-01-08 09:15 | disposition home or self-care (01) ==
LOC: HO.HCS 08:26
PROVIDERS: PCP Internal Medicine; Visit Provider Nurse Practitioner Family
DX: I25.10 Atherosclerotic heart disease of native coronary artery without angina pectoris (principal); R06.02 Shortness of breath; R07.9 Chest pain, unspecified; Z98.890 Other specified postprocedural states; Z95.5 Presence of coronary angioplasty implant and graft; I25.5 Ischemic cardiomyopathy; I10 Essential (primary) hypertension; E78.5 Hyperlipidemia, unspecified
CPT/HCPCS: 99214

== ENCOUNTER → 2024-01-08 08:26 | Outpatient (BNVA) | payer MEDICARE, OTHER, SELFPAY | PROVIDERS: PCP Internal Medicine; Visit Provider Nurse Practitioner Family | DX: I25.10 Atherosclerotic heart disease of native coronary artery without angina pectoris (principal); R06.02 Shortness of breath; R07.9 Chest pain, unspecified; I25.5 Ischemic cardiomyopathy; I10 Essential (primary) hypertension; E78.5 Hyperlipidemia, unspecified; Z98.890 Other specified postprocedural states; Z95.5 Presence of coronary angioplasty implant and graft | CPT/HCPCS: 99212 ==

== ENCOUNTER → 2024-02-06 08:13 | Outpatient (REF) | payer MEDICARE, OTHER, SELFPAY ==
--- NOTE | 2024-02-06 08:21 | HM_ITS ---
* Total monitoring time 3 days. * Underlying rhythm is sinus with an average rate of 60/min. * Occasional supraventricular ectopy with a burden of 1.3%. * Rare ventricular ectopy with a burden of 0.4%. Multiple morphologies. Rare couplets. * No significant pauses or high-grade AV blocks. * Patient marker used twice, in association with sinus rhythm and ventricular ectopy. * No diary events. MTDD
[2024-02-06 08:59] LABS: Cholesterol 145 mg/dL (<200); HDL Cholesterol 52 mg/dL (>40); LDL Cholesterol Calculated 71 mg/dL (<100); Triglycerides 114 mg/dL (<150)
== END ==
LOC: HO.CARD 08:13
PROVIDERS: Absent Provider Nurse Practitioner Family; PCP Internal Medicine; Visit Provider Internal Medicine Cardiovascular Disease
DX: R00.1 Bradycardia, unspecified (principal); I25.10 Atherosclerotic heart disease of native coronary artery without angina pectoris; E78.5 Hyperlipidemia, unspecified; Z95.5 Presence of coronary angioplasty implant and graft
CPT/HCPCS: 36415; 80061; 93242

== ENCOUNTER → 2024-02-06 08:21 | Outpatient (BNV) | payer MEDICARE, OTHER, SELFPAY | PROVIDERS: Absent Provider Nurse Practitioner Family; PCP Internal Medicine; Visit Provider Internal Medicine | DX: I47.10 Supraventricular tachycardia, unspecified (principal); I49.3 Ventricular premature depolarization | CPT/HCPCS: 93244 ==

== ENCOUNTER 2024-02-11 08:41 | Outpatient (AMB) | payer MEDICARE, OTHER, SELFPAY ==
--- NOTE | 2024-02-11 08:48 | A.OFFVIS_ITS ---
Vital Signs 02/11/24 08:52 Height 6 ft 1 in Weight 238 lb 1.588 oz BMI 31.4 BP 128/68 Blood Pressure Location Lt brachial Position Sitting Pulse 60 Intake Visit Reasons: 1m follow up Intake Note: 1 month follow-up hearts doing ok Business Job Titles Required: No Patient Observation Assistant: Patient Observation Assistant Present Accompanied by: Spouse Allergies No Known Allergies Allergy (Verified 07/18/23 10:27) Medication List - Last Reconciled 02/11/24 by Elier Roberts MD amlodipine 10 mg PO DAILY aspirin 81 mg PO DAILY carvedilol 6.25 mg PO BID clopidogrel 75 mg PO DAILY [id number]--[id number] 43-62-24-250 mg 300 caps PO DAILY evolocumab (Repatha SureClick) 140 mg subcut Q2W 90 days finasteride 5 mg PO DAILY irbesartan 300 mg PO DAILY multivitamin 1 tab PO DAILY nitroglycerin mg sublingual spironolactone 12.5 mg PO DAILY tamsulosin 0.4 mg PO BID HPI Comments Details: Jake comes for follow-up. He continues to have symptoms of significant fatigue throughout the day also had symptoms of diarrhea on Brilinta which has improved on Plavix. However continues to have them. He denies any heart failure symptoms. His shortness of breath since stenting has improved but still present. He denies any palpitation, lightheadedness. His carvedilol was reduced to 6.25 mg b.i.d. due to lower heart rate. He says heart rate has improved but still in the 60s. He said he has not been tolerating his CPAP mask and is having lot of difficulty in sleeps barely 3 hours. Also has lot of hip pain. [facility] Medical History HTN (hypertension) Ischemic cardiomyopathy CAD (coronary artery disease) Heart attack Surgical History (Updated 02/11/24 @ 09:22 by Elier Roberts MD) Stented coronary artery History of appendectomy History of repair of rotator cuff History of thyroidectomy Family History Father Heart attack Sister Skin cancer Mother Colon cancer Social History Household Members: Spouse Housing: House Patient Tobacco Use Status: Former Tobacco user Tobacco use type: Cigarette service: Yes ([employer]) Current occupational status: retired Review of Systems Const Denies chills, Denies fatigue, Denies fever(s), Denies frequent falls, Denies weakness, Denies weight gain and Denies weight loss ENT Denies dizziness Card Denies chest pain, Denies leg edema, Denies lightheadedness, Denies palpitations, Denies dyspnea, Denies dyspnea on exertion, Denies orthopnea and Denies other (loss of consciousness) Resp Denies cough, Denies dyspnea and Denies dyspnea on exertion GI Denies hematochezia and Denies change in stool character Musc Denies abnormal gait, Denies muscle weakness, Denies numbness, Denies radiating pain into limb and Denies tingling Neuro Denies abnormal gait, Denies dizziness, Denies frequent falls, Denies numbness, Denies tingling and Denies weakness Endo Denies fatigue and Denies palpitations Physical Exam Vital Signs: Last Vital Signs Pulse 60 02/11/24 08:52 BP 128/68 02/11/24 08:52 BMI result Body Mass Index 31.4 Const General: cooperative, healthy appearing, comfortable and no acute distress Orientation/consciousness: patient oriented x3 Neck Neck: Yes normal visual inspection and Yes no JVD Resp Effort & Inspection: normal respiratory effort Auscultation: clear to auscultation bilaterally, no rales, no rhonchi and no wheezes Cardio Jugular venous distension: no JVD Rate: regular rate Rhythm: regular rhythm Heart sounds: S1 normal heart sound present, S2 normal heart sound present, no murmurs and no rubs Neuro General: patient oriented x3 Extrem Other: sock markings General: Yes normal to inspection and No no pedal edema Psych Appearance: grossly normal Mental Status: mental status grossly normal Speech and movement: Normal speech and movement present Assessment & Plan Assessment & Plan (1) CAD (coronary artery disease): Code(s): I25.10 - Atherosclerotic heart disease of [place] coronary artery without angina pectoris Category: Medical Plan: CAD with drug-eluting stent to LAD with CASCARA BARK CUTTER of the RCA with collaterals. Patient currently has improved symptoms of shortness of breath. Patient denies any chest pain. Recommend to continue to pursue phase 2 cardiac rehabilitation. Continue dual antiplatelet therapy, importance of this was discussed to reduce risk of stent thrombosis till December of 2024. Continue aggressive blood pressure control which is currently well optimized. LDL cholesterol significantly improved on Repatha to 71 mg/dL. Continue participate in weight loss program. (2) Ischemic cardiomyopathy: Code(s): I25.5 - Ischemic cardiomyopathy Category: Medical Plan: Ischemic cardiomyopathy without any signs or symptoms of heart failure. Status post stenting to the LAD. Follow-up limited echocardiogram in 3 months time. Otherwise continue neurohormonal modulation with spironolactone, carvedilol, irbesartan therapy. Signs and symptoms of heart failure discussed. Continue CPAP therapy. Importance of aggressive medical therapy was discussed advised to monitor blood pressure at home maintain a log. Goal blood pressure less than 130/84. (3) Fatigue: Code(s): R53.83 - Other fatigue Plan: Symptoms of fatigue are probably related to poor sleep and constant pain. Also possibly related to chronotropic competence. Holter monitor reports a pending. However reduce his carvedilol to 3.125 mg b.i.d.. Advised to monitor blood pressure at home maintain a log. Will follow up in the clinic in 3 months time, sooner p.r.n.. Thank you for allowing me to partake in his care Orders: Orders CA Echo Limited Today I25.5 - Ischemic cardiomyopathy Medications: New carvedilol (Coreg) must administer with a meal/food 3.125 mg PO BID 180 tabs 1RF Coding Level of Care Code Est Pt Level 4 (01237) Diagnoses CAD (coronary artery disease) I25.10 Ischemic cardiomyopathy I25.5 Fatigue R53.83
[2024-02-11 08:52] VITALS: BP 128/68; PULSE 60; BMI 31.4
== END 2024-02-11 09:19 | disposition home or self-care (01) ==
PROVIDERS: PCP Internal Medicine; Visit Provider Internal Medicine Cardiovascular Disease
DX: I25.10 Atherosclerotic heart disease of native coronary artery without angina pectoris (principal); I25.5 Ischemic cardiomyopathy; R53.83 Other fatigue
CPT/HCPCS: 99214

== ENCOUNTER → 2024-02-11 08:41 | Outpatient (BNVA) | payer MEDICARE, OTHER, SELFPAY | PROVIDERS: PCP Internal Medicine; Visit Provider Internal Medicine Cardiovascular Disease | DX: I25.10 Atherosclerotic heart disease of native coronary artery without angina pectoris (principal); I25.5 Ischemic cardiomyopathy; R53.83 Other fatigue | CPT/HCPCS: 99212 ==

== ENCOUNTER 2024-02-24 11:17 | Outpatient (REF) | payer MEDICARE, OTHER, SELFPAY ==
[2024-02-24 11:23] LABS: MANUAL DIFF FLAG NO
[2024-02-24 11:43] LABS: Basophils Absolute Auto 0.1 X10*3/uL (0.0-0.2); Basophils Percent Auto 0.6 % (0-2); Eosinophils Absolute Auto 0.3 X10*3/uL (0.0-0.4); Eosinophils Percent Auto 3.2 % (0-4); Hematocrit 37.2 % (42.0-52.0); Hemoglobin 12.7 g/dl (14.0-18.0); Imm Gran Abs Auto 0.02 X10*3/uL (0.00-0.03); Imm Gran Pct Auto 0.2 % (0.0-0.4); Lymphocytes Absolute Auto 1.4 X10*3/uL (1.2-4.9); Lymphocytes Percent Auto 16.9 % (20-40); Mean Corpuscular HGB Conc 34.1 g/dl (31.0-36.0); Mean Corpuscular Hemoglobin 32.5 pg (27.0-33.0); Mean Corpuscular Volume 95.1 fL (80.0-98.0); Mean Platelet Volume 9.8 fL (9.4-12.4); Monocytes Absolute Auto 0.8 X10*3/uL (0.1-1.2); Monocytes Percent Auto 9.7 % (2-11); Neutrophils Absolute Auto 5.7 x10*3/uL (2.0-8.3); Neutrophils Percent Auto 69.4 % (45-73); Platelet Count 216 X10*3/uL (160-400); Red Blood Count 3.91 X10*6/uL (4.60-5.80); Red Cell Distribution Width 13.2 % (11.0-16.0); White Blood Count 8.2 X10*3/uL (4.8-10.8)
[2024-02-24 11:48] LABS: Appearance Urine Clear; Color Urine Yellow; Glucose Urine UA Negative (Negative); Leukocyte Esterase Urine Negative (Negative); Nitrite Urine Negative (Negative); Specific Gravity - Urine 1.015 (1.005-1.025); Urine Blood Negative (Negative); Urine Ketones Negative (Negative); Urine Protein Negative (Neg-Trace)
[2024-02-24 11:51] LABS: Bacteria Urine None Seen (None Seen); Hyaline Casts Urine 0-2 /LPF (0-2); RBC Urine 0-2 /HPF (0-2); Squamous Epithelial Cell Urine 0-2 /HPF (0-2); WBC Urine 0-5 /HPF (0-5)
[2024-02-24 12:44] LABS: Alanine Aminotransferase 17 U/L (0-40); Albumin Level 3.9 g/dL (3.5-5.0); Alkaline Phosphatase 59 U/L (39-117); Anion Gap 10 (12-20); Aspartate Amino Transferase 22 U/L (5-37); Bilirubin Total 0.8 mg/dL (0.0-1.0); Blood Urea Nitrogen 14 mg/dL (9-16); Calcium 8.7 mg/dL (8.4-10.2); Carbon Dioxide 28 mmol/L (22-29); Chloride 106 mmol/L (96-108); Cholesterol 121 mg/dL (<200); Estimated Glomerular Filt Rate > 60; Glucose Fasting 97 mg/dL (60-99); HDL Cholesterol 55 mg/dL (>40); Iron 73 mcg/dL (45-160); LDL Cholesterol Calculated 53 mg/dL (<100); Percent Iron Saturation 28 % (15-50); Potassium 4.1 mmol/L (3.3-5.1); Sodium 140 mmol/L (135-145); Total Iron Binding Capacity 265 mcg/dL (228-428); Total Protein 6.6 g/dL (6.5-8.0); Triglycerides 68 mg/dL (<150); Unsaturated Iron Binding 192 ug/dL
[2024-02-24 12:45] LABS: PSA,Total (Free>4and<10) 2.78 ng/mL (0.00-4.00)
== END 2024-02-24 11:18 | disposition home or self-care (01) ==
LOC: HO.LNP 11:17
PROVIDERS: Visit Provider Internal Medicine
DX: Z00.00 Encounter for general adult medical examination without abnormal findings (principal); E78.00 Pure hypercholesterolemia, unspecified; I10 Essential (primary) hypertension; I50.22 Chronic systolic (congestive) heart failure; D50.9 Iron deficiency anemia, unspecified; Z12.5 Encounter for screening for malignant neoplasm of prostate
CPT/HCPCS: 80053; 80061; 81001; 83540; 84153; 85025

== ENCOUNTER 2024-06-08 13:40 | Outpatient (AMB) | payer MEDICARE, OTHER, SELFPAY ==
[2024-06-08 13:52] VITALS: BP 140/68; PULSE 68; BMI 31.4
--- NOTE | 2024-06-08 13:52 | A.OFFVIS_ITS ---
Vital Signs 06/08/24 13:52 Height 6 ft 1 in Weight 238 lb 1.588 oz BMI 31.4 BP 140/68 H Blood Pressure Location Lt brachial Position Sitting Pulse 68 Pulse Source Pulse Oximeter Intake Visit Reasons: 3 mth f/.up Allergies No Known Allergies Allergy (Verified 07/18/23 10:27) Medication List - Last Reconciled 06/08/24 by Elier Roberts MD amlodipine 10 mg PO DAILY aspirin 81 mg PO DAILY carvedilol (Coreg) 3.125 mg PO BID clopidogrel 75 mg PO DAILY 90 days [id number]--[id number] 46-15-21-250 mg 300 caps PO DAILY evolocumab (Repatha SureClick) 140 mg subcut Q2W 90 days finasteride 5 mg PO DAILY irbesartan 300 mg PO DAILY multivitamin 1 tab PO DAILY nitroglycerin mg sublingual prasugrel 10 mg PO DAILY spironolactone 12.5 mg (1/2 x 25 mg) PO DAILY 90 days tamsulosin 0.4 mg PO BID HPI Comments Details: Jake comes for follow-up. He said he has been doing well. He had to take a break in his cardiac rehab due to COVID. However he is back to exercising. He continues to have exertional shortness of breath NYHA class 2 when he climbs 2 flights of stairs but this is significantly improved. Denies any orthopnea, PND, leg edema. No lightheadedness, syncope. He said the Repatha did a good work for his LDL although he said the cost is too much. He is going to explore other options. Denies any chest pain. No prolonged palpitation irregular heartbeat. No lightheadedness, syncope. No bleeding issues or neurologic events. 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 Review of Systems Const Denies weakness ENT Denies dizziness Card Denies chest pain, Denies chest pain with activity, Denies syncope, Denies rapid heart rate, Denies pedal edema, Denies edema, Denies leg edema, Denies lightheadedness, Denies palpitations, Denies dyspnea, Denies dyspnea on exertion and Denies orthopnea Resp Denies cough, Denies dyspnea and Denies dyspnea on exertion GI Denies hematochezia and Denies change in stool character Musc Denies abnormal gait, Denies muscle cramps, Denies muscle weakness, Denies numbness, Denies radiating pain into limb and Denies tingling Neuro Denies abnormal gait, Denies dizziness, Denies syncope, Denies numbness, Denies tingling and Denies weakness Endo Denies palpitations Physical Exam Vital Signs: Last Vital Signs Pulse 68 06/08/24 13:52 BP 140/68 H 06/08/24 13:52 BMI result Body Mass Index 31.4 Const General: cooperative, healthy appearing, comfortable and no acute distress Orientation/consciousness: patient oriented x3 Neck Neck: Yes normal visual inspection and Yes no JVD Resp Effort & Inspection: normal respiratory effort Auscultation: clear to auscultation bilaterally, no rales, no rhonchi and no wheezes Cardio Jugular venous distension: no JVD Rate: regular rate Rhythm: regular rhythm Heart sounds: S1 normal heart sound present, S2 normal heart sound present, no murmurs and no rubs Neuro General: patient oriented x3 Extrem Other: sock markings General: Yes normal to inspection and No no pedal edema Psych Appearance: grossly normal Mental Status: mental status grossly normal Speech and movement: Normal speech and movement present Assessment & Plan Assessment & Plan (1) Ischemic cardiomyopathy: Code(s): I25.5 - Ischemic cardiomyopathy Category: Medical Plan: Ischemic cardiomyopathy with moderate LV systolic dysfunction. Still has NYHA class 2 symptoms. Will switch his irbesartan to Entresto for better neurohormonal modulation and better outcome data. Will also bump up his carvedilol to 6.25 mg b.i.d.. Advised to monitor blood pressure at home. Follow-up BNP in 2 weeks. He has no signs or symptoms of heart failure. Continue spironolactone 12.5 mg daily. Signs and symptoms of heart failure were discussed. He understands agrees. Follow-up limited echocardiogram in 3 months time. Continue phase 2 cardiac rehabilitation. (2) CAD (coronary artery disease): Code(s): I25.10 - Atherosclerotic heart disease of [place] coronary artery without angina pectoris Category: Medical Plan: CAD status post LAD stenting with chronic total occlusion of the RCA. No current symptoms of angina. He is doing a lot better. Continue dual antiplatelet therapy for total of 1 year post PCI. Continue aggressive blood pressure control. Uptitration medicines as above. He can not tolerate statin therapy and has done well with Repatha therapy. Have provided him with a written prescription he is going to explore options. Continue phase 2 cardiac rehabilitation. Follow up in the clinic in 3 months time, sooner p.r.n.. Thank you for allowing me to partake in his care Orders: Orders CA Echo Limited 3 Months I25.5 - Ischemic cardiomyopathy, I42.9 - Cardiomyopathy, unspecified Medications: New carvedilol (Coreg) must administer with a meal/food 6.25 mg PO BID 180 tabs 1RF sacubitril-valsartan 49-51 mg (Entresto) 1 tab PO BID 180 tabs 1RF Refilled evolocumab (Repatha SureClick) 140 mg subcut Q2W 90 days 6 mL 3RF I25.5 - Ischemic cardiomyopathy Discontinued carvedilol (Coreg) must administer with a meal/food Discontinued Reason: Doctor's Order 3.125 mg PO BID 180 tabs 1RF prasugrel substitute for Plavix while taking Paxlovid Discontinued Reason: Patient no longer taking 10 mg PO DAILY 14 tabs 0RF irbesartan Discontinued Reason: Doctor's Order 300 mg PO DAILY 90 tabs 3RF Coding Level of Care Code Est Pt Level 4 (30745) Complex EM visit Add On G2211 Diagnoses Ischemic cardiomyopathy I25.5 CAD (coronary artery disease) I25.10
== END 2024-06-08 14:18 | disposition home or self-care (01) ==
PROVIDERS: PCP Internal Medicine; Visit Provider Internal Medicine Cardiovascular Disease
DX: I25.5 Ischemic cardiomyopathy (principal); I25.10 Atherosclerotic heart disease of native coronary artery without angina pectoris
CPT/HCPCS: 99214; G2211

== ENCOUNTER → 2024-06-08 13:40 | Outpatient (BNVA) | payer MEDICARE, OTHER, SELFPAY | PROVIDERS: PCP Internal Medicine; Visit Provider Internal Medicine Cardiovascular Disease | DX: I25.5 Ischemic cardiomyopathy (principal); I25.10 Atherosclerotic heart disease of native coronary artery without angina pectoris; I42.9 Cardiomyopathy, unspecified | CPT/HCPCS: 99212 ==

== ENCOUNTER → 2024-06-17 14:02 | Outpatient (REF) | payer MEDICARE, OTHER, SELFPAY ==
--- OUTSIDE RECORDS SUMMARY | 2024-06-23 02:59 | XMS_ITS ---
Author Organization Chay Little MD Address [address] [place] [phone] Care Team Providers Care Food Service Specialist Name Role Phone Chay Little Primary Care Provider [phone] ALLERGIES No Known Allergies REASON FOR VISIT COVID POSITVE tested today, c/o sore throat cough headache muscle pain, runny nose congestion nauseau x 1 day, Audio [phone] MEDICATIONS Medication SIG (Take, Route, Frequency, Duration) Notes [...] mL Subcutaneous fo r 30 day(s) Active VITAL SIGNS Height 72.5 in 05/10/2024 weight at home is 230 BP not taken no temp Encounters Encounter Location Date Provider Diagnosis Chay Little MD [address] [place] [address] [phone] 05/10/2024 Chay Little COVID-19 U07.1 ASSESSMENTS Encounter Date Diagnosis Assessment Notes Treatment Notes Treatment Clinical Notes 05/10/2024 COVID-19 (ICD-10 - U07.1) patient verbalized understanding of medication and directions for use PLAN OF TREATMENT Medication Medication Name Sig Start Date Stop Date Notes Paxlovid (300/100) 20 x 150 MG & 10 x 100MG 3 tablets Orally Twice a day for 5 day(s) 05/10/2024 Treatment Notes Assessment Notes COVID-19 patient verbalized u nderstanding of medication and directions for use Next Appt Details Provider Name:Chay mares, 10/08/2024 10:15:00 AM, [address] [place] [address], [phone], Provider Name:Chay mares, 04/08/2025 07:45:00 AM, [address] [place] [address], [phone], Provider Name:Chay mares, 04/15/2025 11:00:00 AM, [address] [place] [address], [phone], History and Physical Notes * HPI (History of Present Illness) Category Sub-Category Detail Notes Symptom(s) Telehealth Location of prov ider rendering services:: [address] [place] [address] Location of patient:: other (please spec mike) [...]
--- OUTSIDE RECORDS SUMMARY | 2024-06-23 02:59 | XMS_ITS ---
Author Organization Chay Little MD Address [address] [place] [phone] Care Team Providers Care Dye Worker Name Role Phone SidneyBushran Primary Care Provider REASON FOR VISIT med issue Encounters Encounter Location Date Provider Diagnosis Chay Little MD [address] [facility] [address] [place] [address] [phone] 05/11/2024 Chay Little PLAN OF TREATMENT Next Appt Details Provider Name:Chay calvor, 10/08/2024 10:15:00 AM, [address] [place] [address], [address] [place] [address], [phone], Provider Name:Chay Rincon ier, 04/08/2025 07:45:00 AM, [address] [place] [address], [address], [phone], Provider Name:Chay mares, 04/15/2025 11:00:00 AM, [address] [place] [address], [address], [phone],
--- OUTSIDE RECORDS SUMMARY | 2024-06-23 02:59 | XMS_ITS ---
Author Organization Chay Little MD Address [address] [place] [address] [phone] Care Team Providers Care Goldsmith Apprentice Name Role Phone Chay Little Primary Care Provider [phone] ALLERGIES No Known Allergies RESULTS Component Value Reference Range Notes Occult Blood, Stool, Guaiac Reviewed date:04/12/2024 02:37:45 PM Interpretation:Negative Performing Lab: Notes/Report: Negative Occult Blood, Stool, Guaiac Neg REASON FOR VISIT annual visit, went to Urgent Care 02-25-25 still c/o productive cough, stuffy nose congestion, Tested negative x 2 for Covid MEDICATIONS Medication SIG (Take, Route, Frequency, Duration) [...] Once a day for 30 day(s) Active SOCIAL HISTORY Tobacco Use: Social History Observation Description Date Details (start date - stop date) Former Smoker NA - NA Sex Assigned At : Social History Observation Description Sex Assigned At Unknown Tobacco Use/Smoking Question Answer Notes Patient is [...] Never (0 point) Points 4 Interpretation Positive PROBLEMS Problem Type ICD Code Onset Dates Problem Status W/U Status Risk SNOMED Code Notes Problem Status post coronary artery stent placement (Z95.5) Active confirmed [id number] VITAL SIGNS BMI 31.56 kg/m2 04/12/2024 Blood pressure systolic 138 mm Hg 04/12/20 24 Blood pressure diastolic 60 mm Hg 024 Height 72.5 in 04/12/2024 Weight 236 lbs 04/12/2024 weight is up 11pounds since 05-27-23 Encounters Encounter Location Date Provider Diagnosis Chay Little MD [address] [place], [place] [phone] 04/12/2024 Chay Little Status post coronary artery stent placement Z95.5 ; Annual physical exam Z00.00 ; Prostatism N40.0 ; Statin intolerance Z78.9 ; Atherosclerotic heart disease of [place] coronary artery without angina pectoris I25.10 ; Hypercholesterolemia E78.00 ; Essential hypertension I10 ; Chronic systolic congestive heart failure I50.22 ; Colon cancer screening Z12.11 and Depression screening Z13.31 ASSESSMENTS Encounter Date Diagnosis Assessment Notes Treatment Notes Treatment Clinical Notes 04/12/2024 Status post coronary artery stent placement (ICD-10 - Z95.5) doing well after stents placed, followed by [facility] 04/12/2024 Annual physical exam (ICD-10 - Z00.00) labs reviewed and discussed with patient 04/12/2024 Prostatism (ICD-10 - N40.0) doing well, will continue current regiment 04/12/2024 Statin intolerance ( ICD-10 - Z78.9) has inability 04/12/2024 Atherosclerotic hear t disease of [place] coronary artery without angina pectoris (ICD-10 - [...] Depression screening (ICD-10 - Z13.31) negative screen PLAN OF TREATMENT Medication Medication Name Sig [...] has inability Atherosclerotic heart diseas e of [place] coronary artery without angina pectoris doing well Hypercholesterolemia stable, is at goal, will continue current regiment Essential hypertension doing well, is at goal, will continue current regiment Chronic systolic congestive heart failur e stable, doing well, will continue curent regiment Colon cancer screening guaiac negative Depression screening negative screen Next Appt Details Follow Up: 6 Months, Reason: Provider Name:Chay Rincon vishnu, 10/08/2024 10:15:00 AM, [address] [place] [address], [address] [facility], [place], [place], [phone], Provider Name:Chay Rincon vishnu, 04/08/2025 07:45:00 AM, [address] [place] [address], [place] [address], [place], [place], [phone], Provider Name:Chay Rincon vishnu, 04/15/2025 11:00:00 AM, [address] [place] [address], [address] [facility], [place], [place], [phone], Progress Notes * Examination Category Sub-Category Detail Notes General Examination GENERAL APPEARANCE: well dev eloped, well nourished, in no acute distress HEAD: normocephalic, atrau matic EYES: pupils equal, round, reactive to light and accommodation, sclera non- icteric EARS: normal THROAT: clear NECK/THYROID: neck supple, [...] stool guaiac negative ORAL CAVITY: mucosa moist History and Physical Notes * HPI (History of Present Illness) Category Sub-Category Detail Notes Depression Screening PHQ-9 Little inte rest or [...] Total Score: 0 Interpretation and Intervention Depression Wenomid didier Findings: Negative Follow-Up for Depression: : review [...] Have you had any falls with injury in the past year?: No Have you had two or more falls in the st year?: No Communication Needs Communication Needs Does the patient have a hearing impairment: Yes ?If yes, what is the hearing impairment? : Hard of hearing, Hearing Aids Does the patient have a vision impairmen t?: Yes ?If yes, what is the vision impairment?: Glasses Does the patient have a cognition impair ment?: No
--- OUTSIDE RECORDS SUMMARY | 2024-06-23 03:00 | XMS_ITS | Patient Health Record ---
Author Organization Chay Little MD Address [address] [place] [phone] Care Team Providers Care Drop Wire Aliner Name Role Phone Chay Little Primary Care Provider ALLERGIES No Known Allergies RESULTS Component Value Reference Range Notes Complete Blood Count no Diff Reviewed date:12/01/2023 12:36:55 PM Interpretation: Performing Lab:[facility], [address] [place] [phone] Notes/Report: White Blood Count 9.9 4.8-10.8 X10*3/uL Red Blood Count 4.36 4.60-5.80 X10*6/uL Hemoglobin 13.6 14.0-18.0 g/dl Hematocrit 39.7 42.0-52.0 % Mean Corpuscular Volume 91.1 80.0-98.0 fL Mean Corpuscular Hemoglobin 31.2 27.0-33.0 pg Mean Corpuscular HGB Conc 34.3 31.0-36.0 g/dl Red Cell Distribution Width 12.9 11.0-16.0 % Platelet Count 270 160-400 X10*3/uL Mean Platelet Volume 9.5 9.4-12.4 fL NRBC Pct Auto 0.0 0.0-0.2 /100WBC NRBC Abs Auto 0.000 0.0-0.012 X10*3/uL Prothrombin Time INR Reviewed date:12/01/2023 12:33:09 PM Interpretation: Performing Lab:[address] [phone] Notes/Report: Prothrombin Time 11.8 11.1-13.3 SEC INTERNATIONAL NORM RATIO 1.0 0.9-1.1 INTERNATIONAL NORMALIZED RATIO (INR) REFERENCE RANGES Reference Range For patients not on anticoagulant therapy: 0.9 - 1.1 INR ranges for oral anticoagulant therapy: For prevention and treatment of venous thrombosis and pulmonary embolism: 2.0 - 3.0 For acute myocardial infarction with aspirin therapy: 2.0 - 3.0 For acute myocardial infarction without aspirin therapy: 3.0 - 4.0 For patients with mechanical prosthetic heart valves: 2.5 - 3.5 Basic Metabolic Panel Reviewed date:12/01/2023 12:51:22 PM Interpretation: Performing Lab:[address] [phone] Notes/Report: Sodium 137 135-145 mmol/L Potassium 4.6 3.3-5.1 mmol/L Chloride 102 96-108 mmol/L Carbon Dioxide 25 22-29 mmol/L Anion Gap 15 12-20 Blood Urea Nitrogen 28 9-16 mg/dL Creatinine 0.82 0.5-1.4 mg/dL Estimated Glomerular Filt Rate > 60 NOTE: For -Panamanian individuals, multiply the result by 1.210. Chronic Kidney Disease: Estimated GFR < 60 mL/min/1.73m2 Severe Kidney Disease: Estimated GFR < 15 mL/min/1.73m2 Glucose Random 94 60-115 mg/dL Calcium 8.6 8.4-10.2 mg/dL B Type Natriuretic Peptide Reviewed date:12/01/2023 12:33:37 PM Interpretation: Performing Lab:[address] [phone] Notes/Report: B Type Natriuretic Peptide 175 <100 pg/mL For those patients who are being treated with Natrecor (nesiritide, recombinant BNP), BNP testing should be performed at least two hours post treatment in order to ensure that only endogenous levels of BNP are detected. Lipid Panel Reviewed date:02/06/2024 12:38:09 PM Interpretation: Performing Lab:[facility], [address] [place] [phone] Notes/Report: Triglycerides 114 <150 mg/dL Desirable Triglyceride: less than 150 mg/dL Borderline High Triglyceride 150-199 mg/dL High Triglyceride: 200-499 mg/dL Very High Triglyceride: greater than or equal to 5OO mg/dL Cholesterol 145 <200 mg/dL Desirable Cholesterol: less than 200 mg/dL Borderline High Cholesterol: 200-239 mg/dL High Cholesterol: greater than 239 mg/dL LDL Cholesterol Calculated 71 <100 mg/dL Desirable LDL: less than 100 mg/dL Near Optimal/Above Optimal LDL: 110-129 mg/dL Borderline High LDL: 130-159 mg/dL High LDL: 160-189 mg/dL Very High LDL: greater than or equal to 190 mg/dL HDL Cholesterol 52 >40 mg/dL Desirable HDL: greater than 40 mg/dL Note: This HDL assay may give artificially low results in patients with liver disease. Complete Blood Count Auto Di ff Reviewed date:02/24/2024 12:54:03 PM Interpretation: Performing Lab:[facility], [address] [place] [phone] Notes/Report: White Blood Count 8.2 4.8-10.8 X10*3/uL [...] NRBC Abs Auto 0.000 0.0-0.012 X10*3/uL Comprehensive [place]. Panel Fa st Reviewed date:02/24/2024 12:51:55 PM Interpretation: Performing Lab:[facility], [address] [place] [phone] Notes/Report: Sodium 140 135-145 mmol/L Potassium 4.1 3.3-5.1 mmol/L Chloride 106 96-108 mmol/L Carbon Dioxide 28 22-29 mmol/L Anion Gap 10 12-20 Blood Urea Nitrogen 14 9-16 mg/dL Creatinine 0.80 0.5-1.4 mg/dL Estimated Glomerular Filt Rate > 60 NOTE: For -Panamanian individuals, multiply the result by 1.210. Chronic [...] PROFILE Reviewed date:02/24/2024 12:49:15 PM Interpretation: Performing Lab:[facility], [address] [place] [phone] Notes/Report: Iron 73 45-160 mcg/dL Total Iron Binding Capacity 265 228-428 mcg/d L Percent Iron Saturation 28 15-50 % Unsaturated Iron Binding 192 Lipid Panel Reviewed date:02/24/2024 12:51:22 PM Interpretation: Performing Lab:[facility], [address] [place] [phone] Notes/Report: Triglycerides 68 <150 mg/dL Desirable Triglyceride: [...] (Free>4and<10) Reviewed date:02/24/2024 12:50:17 PM Interpretation: Performing Lab:[address] [phone] Notes/Report: PSA,Total (Free>4and<10) 2.78 0.00-4.00 ng/mL A [...] between 4.0 and 10.0 ng/mL. PSA methodology: Barrera Alinity i Chemiluminescent Microparticle Immunoassay (CMIA) UA ClnCatch+Micro w/rflx Cul t Reviewed date:02/24/2024 12:54:25 PM Interpretation: Performing Lab:[facility], [address] [place] [phone] Notes/Report: [id number] Urine, Clean Catch Color Urine Yellow Appearance Urine Clear PH 6.0 5.0-9.0 Glucose Urine UA Negative Negative mg/dL Urine Blood Negative Negative Specific [place] - Urine 1.015 1.005-1.025 Urine Protein Negative Neg-Trace mg/dL Urine Ketones Negative Negative mg/dL Nitrite Urine Negative Negative Leukocyte Esterase Urine Negative Negative RBC Urine 0-2 0-2 /HPF WBC Urine 0-5 0-5 /HPF Squamous Epithelial Cell Urine 0-2 0-2 /HPF Bacteria Urine None Seen None Seen Hyaline Casts Urine 0-2 0-2 /LPF Occult Blood, Stool, Guaiac Reviewed date:04/12/2024 02:37:45 PM Interpretation:Negative Performing Lab: Notes/Report: Negative Occult Blood, Stool, Guaiac Neg REASON FOR REFERRAL No Information MEDICATIONS Medication SIG (Take, Route, Frequency, Duration) Notes Start Date End Date Status Tamsulosin HCl 0.4 MG TAKE 1 CAPSULE BY MOUTH TWICE DAILY Active Co Q 10 10 MG as directed Orally Active Aspir-Low 81 MG 1 tablet Orally Once a day for 30 day(s) Active Ibuprofen 800 MG 1 tablet with food o r milk Orally Three times a day for 10 days 04/22/2017 Not-Taking Repatha 140 MG/ML 1 mL Subcutaneous fo r 30 day(s) Active Tessalon Perles 100 MG 2 capsule as need ed Orally Three times a day 01/07/2019 Not-Taking Irbesartan 300 MG 1 tablet Orally Once a day Active Spironolactone 25 MG 0.5 tablet Orally t wice a day Active Furosemide 40 MG TAKE 1 TABLET BY LITO TH ONCE DAILY Active amLODIPine Besylate 10 MG 1 tablet Orall y Once a day Active Carvedilol 3.125 MG 1 tablet with food Orally BID Active Paxlovid (300/100) 20 x 150 MG & 10 x 100MG 3 tablets Orally Twice a day for 5 day(s) 05/10/2024 Active Finasteride 5 MG 1 tablet Orally Once a day Active IMMUNIZATIONS Vaccine Route Administration Date Status Comme nts Fluarix Quadrivalent IM Intramuscular 08/12/2016 Administe valeriy PPSV23 (Pnemovax) IM Intramuscular 09/20/2016 Administered Fluarix Quadrivalent IM Intramuscular 03/24/2017 Admindarin crooks Prevnar 13 IM Intramuscular 10/07/2017 Administered Influenza High Dose IM Intramuscular 04/21/2018 Administer ed pt was given the vaccine at [facility]. Influenza High Dose IM Intramuscular 04/09/2019 Administer ed pt was given the vaccine at [facility] in [place]. 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) Active confirmed 83733735 Problem Prostatism (N40.0) Active confirmed 114 54986 Problem Statin intolerance (Z78.9) Active confirmed 912999194 Problem Mixed hyperlipidemia (E78.2) Active confirmed 004695695 Problem Obstructive sleep ap severiano (adult) (pediatric) (G47.33) Active confirmed 43177536 Problem Essential hypertensi on (I10) Active confirmed 06673828 Problem Chronic systolic congestive heart failure (I50.22) Active confirmed 741969731 Problem Iron deficiency anem ia, unspecified iron deficiency anemia type (D50.9) Active confirmed 00958526 Problem 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) Active confirmed 711172876 Problem Hypercholesterolemia (E78.00) Active confirmed 16861348 Problem 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 confirmed 68566658 Problem Status post coronary artery stent placement (Z95.5) Active confirmed 178095407 VITAL SIGNS Blood pressure diastolic 60 mm Hg 04/12/2024 stefani ght is up 11pounds since 05-27-23 Height 72.5 in 05/10/2024 weight at home is 230 BP not taken no temp Blood pressure systolic 138 mm Hg 04/12/2024 weig ht is up 11pounds since 05-27-23 Weight 236 lbs 04/12/2024 weight is up 11 pounds since 05-27-23 BMI 31.56 kg/m2 04/12/2024 weight is up 11 pounds since 05-27-23 Encounters Encounter Location Date Provider Diagnosis Chay Little MD [address] [place] [phone] 04/12/2024 Chay Little Status post coronary artery stent placement Z95.5 ; Annual physical exam Z00.00 ; Prostatism N40.0 ; Statin intolerance Z78.9 ; Atherosclerotic heart disease of platinum coronary artery without angina pectoris I25.10 ; Hypercholesterolemia E78.00 ; Essential hypertension I10 ; Chronic systolic congestive heart failure I50.22 ; Colon cancer screening Z12.11 and Depression screening Z13.31 Chay Little MD [address] [place] [phone] 02/24/2024 Chay Little Blood tests for rout ine general physical examination Z00.00 ; Hypercholesterolemia E78.00 ; Essential hypertension I10 ; Chronic systolic congestive heart failure I50.22 and Iron deficiency anemia, unspecified iron deficiency anemia type D50.9 Chay Little MD [address] [place] [phone] 08/29/2023 Chay Little Essential hypertensi on I10 ; Prostatism N40.0 ; Obstructive sleep apnea (adult) (pediatric) G47.33 and Bilateral leg edema R60.0 Chay Little MD [address] [place] [phone] 05/11/2024 Chay Little MD [address] [place], [place] [phone] 05/10/2024 Chay Little COVID-19 U07.1 ASSESSMENTS Encounter Date Diagnosis Assessment Notes Treatment Notes Treatment Clinical Notes 04/12/2024 Annual physical exam (ICD-10 - Z00.00) labs reviewed and discussed with patient 04/12/2024 Status post coronary artery stent placement (ICD-10 - Z95.5) doing well after stents placed, followed by cardilogy 02/24/2024 Hypercholesterolemia (ICD-10 - E78.00) 02/24/20[address] tests [address] ine general physical examination (ICD-10 - Z00.00) 08/29/2023 Prostatism (ICD-10 - N40.0) doing better on finasteride 08/29/2023 Essential hypertensi on (ICD-10 - I10) doing well on meds, will continue current regiment 05/10/2024 COVID-19 (ICD-10 - U07.1) ward spann verbalized understanding of medication and directions for use 04/12/2024 Prostatism (ICD-10 - N40.0) doing well, will continue current regiment 02/24/2024 Essential hypertensi on (ICD-10 - I10) 08/29/2023 Obstructive sleep ap severiano (adult) (pediatric) (ICD-10 - G47.33) using cpap 04/12/2024 Statin intolerance (ICD-10 - Z78.9) has inability 02/24/2024 Chronic systolic congestive heart failure (ICD-10 - I50.22) 08/29/2023 Bilateral leg edema (ICD-10 - R60.0) is doing well on meds 04/12/2024 Atherosclerotic hear t disease of platinum coronary artery without angina pectoris (ICD-10 - I25.10) doing well 02/24/2024 Iron deficiency anem ia, unspecified iron deficiency anemia type (ICD-10 - D50.9) 04/12/2024 Hypercholesterolemia (ICD-10 - E78.00) stable, is [...] - Z13.31) negative screen PLAN OF TREATMENT Pending Test Test Name Order Date Electrocardiogram (EKG) 10/16/2018 XR CHEST 2 VIEW PA & LAT 02/25/2022 Next Appt Details Provider Name:Chayghislaine Rincon ier, 10/08/2024 10:15:00 AM, [address] [place] [address], [address] [place] [address], [phone], Provider Name:Chay Ivory Sergey ier, 04/08/2025 07:45:00 AM, [address] [place] [address], [address] [facility], [place], [place], [phone], Provider Name:Chay Rincon ier, 04/15/2025 11:00:00 AM, [address] [place] [address], [place] [address], [place], [place], [phone], Insurance Providers Payer Name Payer Address Payer Phone Subscriber Number Group Number Insured Name Patient Relationship to Insured Coverage Start Date Coverage End Date [employer] [address] [address] [place] [address] [id number] PERNELL CASTILLO Self - patient is the insured [facility] [address] [address] [place] [id number] PERNELL CASTILLO Self - patient is the insured MEDICAL (GENERAL) HISTORY Medical History History ICD Code colonoscopy 07/27/15 Dr. Teresa manning at 07/28/19 (4 years) Cyst of ear canal Q18.1
== END ==
LOC: HO.CARD 14:02
PROVIDERS: Visit Provider Internal Medicine Cardiovascular Disease
DX: I25.5 Ischemic cardiomyopathy (principal)
CPT/HCPCS: 93306; 93308

== ENCOUNTER 2024-12-14 09:25 | Outpatient (AMB) | payer MEDICARE, OTHER, SELFPAY ==
[2024-12-14 09:29] VITALS: BP 120/66; PULSE 64; BMI 31.7
--- NOTE | 2024-12-14 09:29 | MHC.OFFVIS ---
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 Continues to have exertional shortness of breath but he is most bothered by cramping in his stomach for which she is undergoing colonoscopy in near future. He said this is related to clopidogrel therapy. He has not been able to tolerate any cholesterol medicines with statins and was not able to afford PCSK9 inhibitor therapy as his go. Was very high. He denies any orthopnea, PND, significant leg edema. Denies any exertional chest pain. Denies any prolonged palpitation irregular heartbeat. No lightheadedness, syncope. 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 Review of Systems Const Denies chills, Denies fatigue, Denies fever(s), Denies frequent falls, Denies weakness, Denies weight gain and Denies weight loss ENT Denies dizziness Card Denies chest pain, Denies leg edema, Denies lightheadedness, Denies palpitations, Denies dyspnea, Denies dyspnea on exertion, Denies orthopnea and Denies other (loss of consciousness) Resp Denies cough, Denies dyspnea and Denies dyspnea on exertion GI Denies hematochezia and Denies change in stool character Musc Denies abnormal gait, Denies muscle weakness, Denies numbness, Denies radiating pain into limb and Denies tingling Neuro Denies abnormal gait, Denies dizziness, Denies frequent falls, Denies numbness, Denies tingling and Denies weakness Endo Denies fatigue and Denies palpitations Physical Exam Vital Signs: Last Vital Signs Pulse 64 12/14/24 09:29 BP 120/66 12/14/24 09:29 BMI result Body Mass Index 31.7 Const General: cooperative, healthy appearing, comfortable and no acute distress Orientation/consciousness: patient oriented x3 Neck Neck: Yes normal visual inspection and Yes no JVD Resp Effort & Inspection: normal respiratory effort Auscultation: clear to auscultation bilaterally, no rales, no rhonchi and no wheezes Cardio Jugular venous distension: no JVD Rate: regular rate Rhythm: regular rhythm Heart sounds: S1 normal heart sound present, S2 normal heart sound present, no murmurs and no rubs Neuro General: patient oriented x3 Extrem Other: sock markings General: Yes normal to inspection and No no pedal edema Psych Appearance: grossly normal Mental Status: mental status grossly normal Speech and movement: Normal speech and movement present Office Procedures EKG Details: EKG shows normal sinus rhythm with T-wave inversion inferior leads and nonspecific changes in the anterolateral leads. [id number], Complete Assessment & Plan Assessment & Plan (1) CAD (coronary artery disease): Code(s): I25.10 - Atherosclerotic heart disease of [place] coronary artery without angina pectoris Category: Medical Plan: CAD with prior myocardial infarction as well as LAD stenting loss December. Dual antiplatelet therapy can be stopped at 1 year. Continue lifelong aspirin therapy and this was discussed with him. Continue aggressive risk factor modification with aggressive blood pressure control. Unfortunately he has lipids are not well modified any remains at risk for future cardiovascular outcomes. His insurance cor pulmonale because of his insurance was too high for PCSK9 inhibitor therapy. (2) Ischemic cardiomyopathy: Code(s): I25.5 - Ischemic cardiomyopathy Category: Medical Plan: Ischemic cardiomyopathy with moderate LV systolic dysfunction status post stenting. Needs an echocardiogram to follow up on his LV ejection fraction. Continue current neurohormonal modulation with carvedilol. He is not on Entresto therapy again due to cost issues. Currently on irbesartan therapy. Continue spironolactone therapy. No signs or symptoms of heart failure. Encouraged to maintain activity level as tolerated also participate in weight loss program which should overall help his symptoms of shortness of breath. (3) Preoperative cardiovascular examination: Code(s): Z01.810 - Encounter for preprocedural cardiovascular examination Plan: Preoperative cardiovascular risk stratification in this elderly gentleman to undergo colonoscopy. This is considered low risk procedure. He is at low risk for perioperative cardiovascular morbidity mortality. His aspirin and Plavix can be withheld for the procedure 5-7 days. Continue all other cardiac medications in the perioperative time. Will follow up in the clinic in 6 months time, sooner p.r.n.. Thank you for allowing me to partake in his care Orders: Orders CA echo transthoracic complete Today I25.5 - Ischemic cardiomyopathy Coding Level of Care Code Est Pt Level 4 (81979) Complex EM visit Add On G2211 Diagnoses CAD (coronary artery disease) I25.10 Ischemic cardiomyopathy I25.5 Preoperative cardiovascular examination Z01.810 CPT Codes EKG - CPT: 18644-[id number], Complete ([id number])
--- OUTSIDE RECORDS SUMMARY | 2024-12-14 10:28 | XMS_ITS | Patient Health Record ---
Author Organization Chay Little MD Address [address] [place] [id number] Care Team Providers Care Laborer Operator Name Role Phone Chay Little Primary Care Provider Allergies No Known Allergies Results Component Value Reference Range Notes Complete Blood Count Auto Di ff Reviewed date:02/24/2024 12:54:03 PM Interpretation: Performing Lab:[facility], [address] [place] [phone] Notes/Report: White Blood Count 8.2 4.8-10.8 X10*3/uL [...] NRBC Abs Auto 0.000 0.0-0.012 X10*3/uL Comprehensive [place]. Panel Fa st Reviewed date:02/24/2024 12:51:55 PM Interpretation: Performing Lab:[facility], [address] [place] [phone] Notes/Report: Sodium 140 135-145 mmol/L Potassium 4.1 3.3-5.1 mmol/L Chloride 106 96-108 mmol/L Carbon Dioxide 28 22-29 mmol/L Anion Gap 10 12-20 Blood Urea Nitrogen 14 9-16 mg/dL Creatinine 0.80 0.5-1.4 mg/dL Estimated Glomerular Filt Rate > 60 NOTE: For -Dutch individuals, multiply the result by 1.210. Chronic [...] PROFILE Reviewed date:02/24/2024 12:49:15 PM Interpretation: Performing Lab:[facility], [address] [place] [phone] Notes/Report: Iron 73 45-160 mcg/dL Total Iron Binding Capacity 265 228-428 mcg/d L Percent Iron Saturation 28 15-50 % Unsaturated Iron Binding 192 Lipid Panel Reviewed date:02/24/2024 12:51:22 PM Interpretation: Performing Lab:[facility], [address] [place] [phone] Notes/Report: Triglycerides 68 <150 mg/dL Desirable Triglyceride: [...] (Free>4and<10) Reviewed date:02/24/2024 12:50:17 PM Interpretation: Performing Lab:[facility], [address] [place] [phone] Notes/Report: PSA,Total (Free>4and<10) 2.78 0.00-4.00 ng/mL A [...] 4.0 and 10.0 ng/mL. PSA methodology: Barrera Insightfulincnity i Chemiluminescent Microparticle Immunoassay (CMIA) UA ClnCatch+Micro w/rflx Cul t Reviewed date:02/24/2024 12:54:25 PM Interpretation: Performing Lab:[facility], [address] [place] [phone] Notes/Report: [id number] Urine, Clean Catch Color Urine Yellow Appearance Urine Clear PH 6.0 5.0-9.0 Glucose Urine UA Negative Negative mg/dL Urine Blood Negative Negative Specific [place] - Urine 1.015 1.005-1.025 Urine Protein Negative [...] Notes/Report: Negative Occult Blood, Stool, Guaiac Neg Lipid Panel Reviewed date:02/06/2024 12:38:09 PM Interpretation: Performing Lab:[facility], [address] [place] [phone] Notes/Report: Triglycerides 114 <150 mg/dL Desirable Triglyceride: [...] low results in patients with liver disease. Reason For Referral Reason SCREEN FOR COLON [...] PATIENT DIRECTLY. MR CASTILLO HAS BEEN INFORMED, AmandoLilahiren Carolina A 10/18/2024 09:14:14 AM >APPT SCHEDUULED FOR 11/04/2024 AT 10:15AM Referral Priority Routine Referral Appointment Date 11/04/2024 Medications Medication SIG (Take, Route, Frequency, Duration) Notes Start Date End Date Status Clopidogrel Bisulfate 75 MG 1 tablet Orally Once a day Active Ibuprofen 800 MG 1 tablet with food o r milk Orally Three times a day for 10 days 04/22/2017 Not-Taking Co Q 10 10 MG as directed Orally Active Furosemide 40 MG TAKE 1 TABLET BY LITO TH ONCE DAILY Not-Taking Paxlovid (300/100) 20 x 150 MG & 10 x 100MG 3 tablets Orally Twice a day for 5 day(s) 05/10/2024 Not-Taking Finasteride 5 MG 1 tablet Orally Once a day Active Tamsulosin HCl 0.4 MG TAKE 1 CAPSULE BY MOUTH TWICE DAILY Active Spironolactone 25 MG 0.5 tablet Orally twice a day Active Carvedilol 6.25 MG 1 tablet with food Orally BID Active amLODIPine Besylate 10 MG 1 tablet Orall y Once a day Active Irbesartan 300 MG 1 tablet Orally Once a day Active Tessalon Perles 100 MG 2 capsule as need ed Orally Three times a day 01/07/2019 Not-Taking Aspir-Low 81 MG 1 tablet Orally Once a day for 30 day(s) Active Immunizations Vaccine Route Administration Date Status Comme nts Fluarix Quadrivalent IM Intramuscular 08/12/2016 Administe red PPSV23 (Pnemovax) IM Intramuscular 09/20/2016 Administered Fluarix Quadrivalent IM Intramuscular 03/24/2017 Administe red Prevnar 13 IM Intramuscular 10/07/2017 Administered Influenza High Dose IM Intramuscular 04/21/2018 Administer ed pt was given the vaccine at [facility]. Influenza High Dose IM Intramuscular 04/09/2019 Administer ed pt was given the vaccine at [facility] in [place]. Influenza High Dose IM Intramuscular 03/21/2020 Administer ed SARS-COV-2 Pfizer Unknown 09/26/2020 Administered SARS-COV-2 Pfizer Unknown 10/17/2020 Administered Influenza High Dose IM Intramuscular 03/23/2021 Administer ed SARS-COV-2 Pfizer Unknown 04/27/2021 Administered Walgr een's SARS-COV-2 Pfizer Unknown 11/10/2021 Administered Walgr een's TDaP Unknown 10/16/2018 Refused Social History Tobacco Use: Social History Observation [...] Problem Status W/U Status Risk Notes Problem 06638264 Atherosclerotic heart disease of [place] coronary artery without angina pectoris (I25.10) Active confirmed Problem 55573301 Prostatism (N40.0) Active confirmed Problem 644727593 Statin intoleran ce (Z78.9) Active confirmed Problem 911952973 Mixed hyperlipid emia (E78.2) Active confirmed Problem 41143250 Obstructive slee p apnea (adult) (pediatric) (G47.33) Active confirmed Problem 98196422 Essential hypert ension (I10) Active confirmed Problem 993163748 Chronic systolic congestive heart failure (I50.22) Active confirmed Problem 81143093 Iron deficiency anemia, unspecified iron deficiency anemia type (D50.9) Active confirmed Problem 851119906 History of myoca rdial infarction (I25.2) Active confirmed Problem 53939406 Hypercholesterol emia (E78.00) Active confirmed Problem 44522689 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) Active confirmed Problem 718638202 Status post willian nary artery stent placement (Z95.5) Active confirmed Vital Signs Blood pressure diastolic 54 mm Hg 10/08/2024 Height 72.5 in 10/08/2024 Blood pressure systolic 152 mm Hg 10/08/2024 Weight 235 lbs 10/08/2024 BMI 31.43 kg/m2 10/08/2024 Encounters Encounter Location Date Provider Diagnosis Chay Little MD [address] [phone] 02/24/2024 Chay Little Blood tests for rout ine general physical examination Z00.00 ; Hypercholesterolemia E78.00 ; Essential hypertension I10 ; Chronic systolic congestive heart failure I50.22 and Iron deficiency anemia, unspecified iron deficiency anemia type D50.9 Chay Little MD [address] [place] [phone] 04/12/2024 Chay Little Status post coronary artery stent placement Z95.5 ; Annual physical exam Z00.00 ; Prostatism N40.0 ; Statin intolerance Z78.9 ; Atherosclerotic heart disease of [place] coronary artery without angina pectoris I25.10 ; Hypercholesterolemia E78.00 ; Essential hypertension I10 ; Chronic systolic congestive heart failure I50.22 ; Colon cancer screening Z12.11 and Depression screening Z13.31 Chay Little MD [address] [place] [phone] 05/10/2024 Chay Little COVID-19 U07.1 Chay Little MD [address] [place] [phone] 10/08/2024 Chay Little Bowel habit changes R19.4 and Hypercholesterolemia E78.00 Chay Little MD [address] [place] [address] [phone] 05/11/2024 Chay Little Assessments Encounter Date Diagnosis (ICD Code) Assessment Notes Treatment Notes Treatment Clinical Notes Section Notes 02/24/[address] ine general physical examination (ICD-10 - Z00.00) 02/24/2024 Hypercholesterolemia (ICD-10 - E78.00) 04/12/2024 Status post coronary artery stent placement (ICD-10 - Z95.5) doing well after stents placed, followed by cardilogy 04/12/2024 Annual physical exam (ICD-10 - Z00.00) labs reviewed and discussed with patient 05/10/2024 COVID-19 (ICD-10 - U07.1) patient verbalized understanding of medication and directions for use 10/08/2024 Bowel habit changes (ICD-10 - R19.4) needs colonoscopy 02/24/2024 Essential hypertensi on (ICD-10 - I10) 04/12/2024 Prostatism (ICD-10 - N40.0) doing well, will continue current regiment 10/08/2024 Hypercholesterolemia (ICD-10 - E78.00) not able to take statins and can't afford 02/24/2024 Chronic systolic congestive heart failure (ICD-10 - I50.22) 04/12/2024 Statin intolerance (ICD-10 - Z78.9) has inability 02/24/2024 Iron deficiency anem ia, unspecified iron deficiency anemia type (ICD-10 - D50.9) 04/12/2024 Atherosclerotic hear t disease of [place] coronary artery without angina pectoris (ICD-10 - [...] - Z13.31) negative screen Plan Of Treatment Pending Test Test Name Order Date Electrocardiogram (EKG) 10/16/2018 XR CHEST 2 VIEW PA & LAT 02/25/2022 Next Appt Details Provider Name:Chay mares, 04/08/2025 07:45:00 AM, [address] [place] [address], [address], [place], [place], [phone], Provider Name:Chay mares, 04/15/2025 11:00:00 AM, [address] [place] [address], Suite [facility], [place], [place], [phone], Insurance Providers Payer Name Payer Address Payer Phone Subscriber Number Group Number Insured Name Patient Relationship to Insured Coverage Start Date Coverage End Date [employer] [address] [address] [place] [phone] [id number] PERNELL CASTILLO Self - patient is the insured [facility] [address] [address] [place] [id number] PERNELL CASTILLO Self - patient is the insured Medical (General) History Medical History History ICD Code colonoscopy 07/27/15 Dr. Teresa manning at 07/28/19 (4 years) Cyst of ear canal Q18.1
== END 2024-12-14 09:53 | disposition home or self-care (01) ==
LOC: HO.HCS 09:26
PROVIDERS: PCP Internal Medicine; Visit Provider Internal Medicine Cardiovascular Disease
DX: I25.10 Atherosclerotic heart disease of native coronary artery without angina pectoris (principal); I25.5 Ischemic cardiomyopathy; Z01.810 Encounter for preprocedural cardiovascular examination
CPT/HCPCS: 93010; 99214; G2211

== ENCOUNTER → 2024-12-14 09:25 | Outpatient (BNVA) | payer MEDICARE, OTHER, SELFPAY | PROVIDERS: PCP Internal Medicine; Visit Provider Internal Medicine Cardiovascular Disease | DX: Z01.810 Encounter for preprocedural cardiovascular examination (principal); I25.10 Atherosclerotic heart disease of native coronary artery without angina pectoris; I25.5 Ischemic cardiomyopathy | CPT/HCPCS: 93005; 99212 ==

== ENCOUNTER → 2025-01-06 14:32 | Outpatient (REF) | payer MEDICARE, OTHER, SELFPAY ==
--- NOTE | 2025-01-06 14:35 | CA_ITS ---
Transthoracic Echocardiogram Patient (Last, First, Middle): Jake House W Gender: Male Date of : 1945 Age: 79 Procedure Date: 01/06/2025 Procedure Type: Transthoracic Echocardiogram Location: OP Height: 185.42 cm Weight: 104.33 kg BSA: 2.28 m2 Heart Rate: bpm BP: 150 / 70 mmHg Center Administrator: TO Referring MD: Elier Roberts MD Symptoms: I25.5 - Ischemic cardiomyopathy Study Quality: Adequate ECG Rhythm: Sinus Conclusions: - The left ventricular systolic function is mild to moderately decreased. The calculated ejection fraction is 41% by biplane method. - The inferolateral wall and basal inferior segment are akinetic. - There is moderate calcification of the aortic valve. - There is mild mitral annular calcification. Findings Left Ventricle Mildly increased left ventricular cavity size. The left ventricular systolic function is mild to moderately decreased. The calculated ejection fraction is 41% by biplane method. There is evidence of regional wall motion abnormalities. Evidence suggests grade I (mild) diastolic dysfunction. There is mild septal asymmetric hypertrophy. Wall Motion Rest Echo Findings The inferolateral wall and basal inferior segment are akinetic. Right Ventricle Mildly increased right ventricular cavity size. There is normal right ventricular systolic function. Atria The left atrium is moderately dilated. The right atrium is normal in size. Aortic Valve There is moderate calcification of the aortic valve. There is no aortic valve stenosis. There is no aortic valve regurgitation. Mitral Valve There is mild mitral annular calcification. There is trace mitral valve regurgitation. There is no mitral valve stenosis. Pulmonic Valve There is trace pulmonic valve regurgitation. Tricuspid Valve There is mild to moderate tricuspid valve regurgitation. Mild pulmonary hypertension is present. Great Vessels The asc aorta is normal in size. Large ascending aortic plaque vs artifact. Venous The inferior vena cava is mildly dilated and collapses greater than 50% with inspiration. Pericardium/Pleural There is no evidence of pericardial effusion. Prior Study Comparison Changes noted compared to prior study dated: 06/17/2024. LVEF lower than reported in prior study but similar to study from 12/2023. Measurements 2D Linear Measurements IVSd: 1.23 0.6-0.9/0.6-1.0 cm LVIDd: 5.91 3.9-5.3/4.2-5.9 cm LVIDd Index: 2.59 2.4-3.2/2.2-3.1 cm/m2 LVIDs: 5.05 2.0-3.6 cm LVPWd: 0.69 0.7-1.1 cm LA Diam: 4.00 2.7-3.8/3.0-4.0 cm LAIDs Index: 1.75 1.5-2.3 cm/m2 LV Mass: 283.99 67-162/88-224 g LV Mass Index: 124.56 43-95/49-115 g/m2 LVOT Diam: 2.50 3.0+(-)1.3 cm 2D Systolic Function EF 4C: 49.20 >55% EF 2C: 35.50 >55% EF BiP: 41.20 >55% Mitral Valve MV VTI: 0.41 MV Pk Duncan: 1.06 MV Mn Duncan: 0.66 MV Pk Grad: 4.00 MV Mn Grad: 2.00 MV Pk E: 0.76 MV PK A: 0.76 MV Decel Time: 268.00 E/A: 1.00 E'Lateral: 4.57 E'Medial: 4.90 E/E' Med: 15.60 E/E' Lat: 16.70 PHT: 79.00 MVA PHT: 2.78 MVA Continuity: 2.70 Decel [place]: 2.84 Aortic Valve AoV Pk Duncan: 2.09 AoV Mn Duncan: 1.44 AoV VTI: 0.48 AoV Pk Grad: 17.00 Aov Mn Grad: 9.00 YIN Cont.VTI: 2.29 LVOT LVOT Pk Duncan: 1.00 LVOT Mn Duncan: 0.66 LVOT VTI: 0.22 LVOT Pk Grad: 4.00 LVOT Mn Grad: 2.00 LVOT Diam: 2.50 LVOT Area: 4.91 Diastolic Function MV Pk E: 0.76 MV Pk A: 0.76 E/A: 1.00 E'Medial: 4.90 E/E' Med: 15.60 E' Laterial: 4.57 E/E' Lat: 16.70 Right Ventricle TAPSE (mm): 26.30 TVS' Duncan: 20.20 Tricuspid Valve TR Pk Duncan: 2.97 TR Pk Grad: 35.00 RA Press: 8.00 RVSP: 43.00 Great Vessels Aorta Sinus of Valsalva: 3.56 2.0-3.5 cm Ao Asc: 3.80 2.1-3.4 cm Updated in Other Vendor System with Status of Final Manoj Velasquez MD electronically signed on 01/09/2025 1:11:03 PM with status of Final
== END ==
LOC: HO.CARD 14:32
PROVIDERS: PCP Internal Medicine; Visit Provider Internal Medicine Cardiovascular Disease
DX: I25.5 Ischemic cardiomyopathy (principal)
CPT/HCPCS: 93306

== ENCOUNTER → 2025-01-06 14:35 | Outpatient (BNV) | payer MEDICARE, OTHER, SELFPAY | PROVIDERS: PCP Internal Medicine; Visit Provider Internal Medicine | DX: I42.2 Other hypertrophic cardiomyopathy (principal); I27.20 Pulmonary hypertension, unspecified; I35.8 Other nonrheumatic aortic valve disorders; I36.1 Nonrheumatic tricuspid (valve) insufficiency | CPT/HCPCS: 93306 ==

== ENCOUNTER 2025-01-20 08:20 | Outpatient (REF) | payer MEDICARE, OTHER, SELFPAY ==
--- OUTSIDE RECORDS SUMMARY | 2025-01-20 08:29 | XMS_ITS | Patient Health Record ---
Author Organization Chay Little MD Address [address] [place], [place] [id number] Care Team Providers Care Button Inspector Name Role Phone Chay Little Primary Care Provider Allergies No Known Allergies Results Component Value Reference Range Notes Complete Blood Count Auto Di ff Reviewed date:02/24/2024 12:54:03 PM Interpretation: Performing Lab:[facility], [address] [place] [phone] Notes/Report: White Blood Count 8.2 4.8-10.8 X10*3/uL [...] NRBC Abs Auto 0.000 0.0-0.012 X10*3/uL Comprehensive [place]. Panel Fa st Reviewed date:02/24/2024 12:51:55 PM Interpretation: Performing Lab:[facility], [address] [place] [phone] Notes/Report: Sodium 140 135-145 mmol/L Potassium 4.1 3.3-5.1 mmol/L Chloride 106 96-108 mmol/L Carbon Dioxide 28 22-29 mmol/L Anion Gap 10 12-20 Blood Urea Nitrogen 14 9-16 mg/dL Creatinine 0.80 0.5-1.4 mg/dL Estimated Glomerular Filt Rate > 60 NOTE: For -[place]hut[place] individuals, multiply the result by 1.210. Chronic [...] PROFILE Reviewed date:02/24/2024 12:49:15 PM Interpretation: Performing Lab:[facility], [address] [place] [phone] Notes/Report: Iron 73 45-160 mcg/dL Total Iron Binding Capacity 265 228-428 mcg/d L Percent Iron Saturation 28 15-50 % Unsaturated Iron Binding 192 Lipid Panel Reviewed date:02/24/2024 12:51:22 PM Interpretation: Performing Lab:[facility], [address] [place] [phone] Notes/Report: Triglycerides 68 <150 mg/dL Desirable Triglyceride: [...] (Free>4and<10) Reviewed date:02/24/2024 12:50:17 PM Interpretation: Performing Lab:[facility], [address] [place] [phone] Notes/Report: PSA,Total (Free>4and<10) 2.78 0.00-4.00 ng/mL A [...] 4.0 and 10.0 ng/mL. PSA methodology: [employer] Chemiluminescent Microparticle Immunoassay (CMIA) UA ClnCatch+Micro w/rflx Cul t Reviewed date:02/24/2024 12:54:25 PM Interpretation: Performing Lab:[facility], [address] [place] [phone] Notes/Report: [id number] Urine, Clean Catch Color Urine Yellow Appearance Urine Clear PH 6.0 5.0-9.0 Glucose Urine UA Negative Negative mg/dL Urine Blood Negative Negative Specific [place] - Urine 1.015 1.005-1.025 Urine Protein Negative [...] Panel Reviewed date:02/06/2024 12:38:09 PM Interpretation: Performing Lab:[facility], [address] [place] [phone] Notes/Report: Triglycerides 114 <150 mg/dL Desirable Triglyceride: [...] ed pt was given the vaccine at [facility]. Influenza High Dose IM Intramuscular 04/09/2019 Administer ed pt was given the vaccine at [facility] in [place]. Influenza High Dose IM Intramuscular 03/21/2020 Administer [...] Problem Status W/U Status Risk Notes Problem 21469728 Atherosclerotic heart disease of [place] coronary artery without angina pectoris (I25.10) Active confirmed Problem 36432867 Prostatism (N40.0) Active confirmed Problem 283924470 Statin intoleran ce (Z78.9) Active confirmed Problem 102696849 Mixed hyperlipid emia (E78.2) Active confirmed Problem 72609496 Obstructive slee p apnea (adult) (pediatric) (G47.33) Active confirmed Problem 74712652 Essential hypert ension (I10) Active confirmed Problem 080776136 Chronic systolic congestive heart failure (I50.22) Active confirmed Problem 64518232 Iron deficiency anemia, unspecified iron deficiency anemia type (D50.9) Active confirmed Problem 712637954 History of myoca rdial infarction (I25.2) Active confirmed Problem 48594548 Hypercholesterol emia (E78.00) Active confirmed Problem 81253515 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) Active confirmed Problem 453379527 Status post willian nary artery stent placement (Z95.5) Active confirmed Vital Signs Blood pressure diastolic 54 mm Hg 10/08/2024 Height 72.5 in 10/08/2024 Blood pressure systolic 152 mm Hg 10/08/2024 Weight 235 lbs 10/08/2024 BMI 31.43 kg/m2 10/08/2024 Encounters Encounter Location Date Provider Diagnosis Chay Little MD [address] [phone] 02/24/2024 Chay Little Blood tests for rout ine general physical examination Z00.00 ; Hypercholesterolemia E78.00 ; Essential hypertension I10 ; Chronic systolic congestive heart failure I50.22 and Iron deficiency anemia, unspecified iron deficiency anemia type D50.9 Chay Little MD [address] [place] [id number] 04/12/2024 Chay Little Status post coronary artery stent placement Z95.5 ; Annual physical exam Z00.00 ; Prostatism N40.0 ; Statin intolerance Z78.9 ; Atherosclerotic heart disease of [place] coronary artery without angina pectoris I25.10 ; Hypercholesterolemia E78.00 ; Essential hypertension I10 ; Chronic systolic congestive heart failure I50.22 ; Colon cancer screening Z12.11 and Depression screening Z13.31 Chay Little MD [address] [place] [id number] 05/10/2024 Chay Little COVID-19 U07.1 Chay Little MD [address] [place] [id number] 10/08/2024 Chay Little Bowel habit changes R19.4 and Hypercholesterolemia E78.00 Chay Little MD [address] [place] [address] [phone] 05/11/2024 Chay Little Assessments Encounter Date Diagnosis [...] D50.9) 04/12/2024 Atherosclerotic hear t disease of [place] coronary artery without angina pectoris (ICD-10 - [...] Details Provider Name:Chay mares, 04/08/2025 07:45:00 AM, [address] [place] [address], [address], [place], [place], [phone], Provider Name:Chay mares, 04/15/2025 11:00:00 AM, [address] [place] [address], [address] [facility], [place], [place], [phone], Insurance Providers Payer Name Payer Address Payer Phone Subscriber Number Group Number Insured Name Patient Relationship to Insured Coverage Start Date Coverage End Date [employer] [address] [address] [place] [phone] [id number] PERNELL CASTILLO Self - patient is the insured [facility] [address] [address] [place] [id number] PERNELL CASTILLO Self - patient is the insured Medical (General) History Medical History History ICD Code colonoscopy 07/27/15 Dr. Yamil mulligan - repeat 07/28/19 (4 years)01/03/25 colonoscopy pending path Cyst of ear canal Q18.1
--- OUTSIDE RECORDS SUMMARY | 2025-01-20 08:29 | XMS_ITS | Encounter Summary ---
Author Organization [facility] Address [address] [place] [phone] Care Team Providers Care Log Haul Operator Name Role Phone Chay Little MD Primary Care Provider [phone] Encounter Details Date Type Department Care Team (Late st Contact Info) Description 12/28/2024 Telephone Gastroenterology - [address] [place] [phone] Saravanan Woodson MD [address] [place] [address] Social History Tobacco Use Types Packs/Day Years Used Date Smoking Tobacco: Former Cigarettes Smokeless Tobacco: Never Alcohol Use Standard Drinks/Week Comments Yes 0 (1 standard drink = 0.6 oz pur e alcohol) social Sex and Gender Information Value Date Recorded Sex Assigned at Not on file Legal Sex Male 1:08 AM EST Gender Identity Not on file Sexual Orientation Not on file documented as of this encounter Progress Notes * Marni Zepeda - 12/28/2024 10:25 AM EDT PT STATED HE WAS CALLING BACK TO GO OVER HIS MEDS BEFORE HIS UPCOMING PROCEDURE. documented in this encounter Plan of Treatment Not on file documented as of this encounter Visit Diagnoses Not on filedocumented in this encounter Care Teams Log Haul Operator Relationship Specialty Start Date End Date Chay Little MD [address] [place] [phone] PCP - General Internal Medicine 10/11/24 documented as of this encounter
[2025-01-20 09:23] LABS: Anion Gap 10 (12-20); Blood Urea Nitrogen 13 mg/dL (9-16); Calcium 9.0 mg/dL (8.4-10.2); Carbon Dioxide 26 mmol/L (22-29); Chloride 107 mmol/L (96-108); Estimated Glomerular Filt Rate > 60; Potassium 4.0 mmol/L (3.3-5.1); Sodium 139 mmol/L (135-145)
== END 2025-01-20 08:21 | disposition home or self-care (01) ==
LOC: HO.LAB 08:20
PROVIDERS: PCP Internal Medicine; Visit Provider Internal Medicine Cardiovascular Disease
DX: I25.5 Ischemic cardiomyopathy (principal); I25.10 Atherosclerotic heart disease of native coronary artery without angina pectoris
CPT/HCPCS: 36415; 80048

== ENCOUNTER 2025-02-22 12:17 | Outpatient (REF) | payer MEDICARE, OTHER, SELFPAY ==
--- OUTSIDE RECORDS SUMMARY | 2024-05-11 10:05 | XMS_ITS ---
Author Organization Chay Little MD Address [address] [place] [phone] Care Team Providers Care Bake Room Worker Name Role Phone ElkeBushra cuevasn Primary Care Provider REASON FOR VISIT med issue Encounters Encounter Location Date Provider Diagnosis Chay Little MD [address] [place] [phone] 05/11/2024 Chay Little Plan Of Treatment Next Appt Details Provider Name:Chay Rincon ier, 04/08/2025 07:45:00 AM, [address] [place] [address], [address], [phone], Provider Name:Chay Rincon ier, 04/15/2025 11:00:00 AM, [address] [place] [address], [address], [phone], Progress Notes * PERNELL CASTILLODOB:1945 (78 yo M)Acc No.[id number]:05/11/2024 Patient: Luis Antonio PICHARDO PERNELL :1945 A ge:78 Y S ex:Male Address:[address] [place] [address], [address] * true * Date: Generated for Nolvia rosado/Monse/Arleth on: 0 02/22/2025 01:07 PM EDT
--- OUTSIDE RECORDS SUMMARY | 2024-05-13 14:30 | XMS_ITS | Encounter Summary ---
Author Organization [facility] Address [address] [facility] [address] [place] [phone] Phone Care Team Providers Care Design/Animation Instructor Name Role Phone Chay Little MD Primary Care Provider Encounter Details Date Type Department Care Team (Late st Contact Info) Description 05/13/2024 2:30 PM EDT Hospital Encounter [facility] [address] [place] [phone] Hoda Coker, [address] [place] [address] Social History Tobacco Use Types Packs/Day Years [...] originallycreated by Fabricio Clark MD. Hoda Coker PUMP STATION OPERATOR IMG XR CHEST Final Resu lt documented in this encounter Visit Diagnoses Not on filedocumented in this encounter Care Teams Design/Animation Instructor Relationship Specialty Start Date End Date Chay Little MD [address] [place] [address] Dr [place], [place] [address] PCP - General 05/01/17 documented as of this encounter Additional Source Comments The information contained in this document represents components of the legal health record. It is not the complete legal health record.[facility]
--- OUTSIDE RECORDS SUMMARY | 2025-02-22 13:08 | XMS_ITS | Clinical Summary ---
Author Organization [facility] [address] [facility] Address [address] [place] [address] Phone Care Team Providers Care Production Posting Clerk Name Role Phone Chay Little MD Primary Care Provider [phone] Allergies No known active allergies Medications amLODIPine (NORVASC) 10 mg tablet 5 Active carvediloL (COREG) 6.25 mg tablet 5 Active clopidogreL (PLAVIX) 75 mg tablet 5 Active finasteride (PROSCAR) 5 mg tablet 5 Active irbesartan (AVAPRO) 300 mg tablet 5 Active spironolactone (ALDACTONE) 25 mg tablet 5 Active tamsulosin (FLOMAX) 0.4 mg 24 hr capsule 5 Active aspirin 81 mg EC tablet Take 1 tablet (81 mg total) by mouth 1 (one) time each day. Active coenzyme Q-10 30 mg capsule Take 1 capsule (30 mg total) by mouth 1 (one) time each day. Active multivitamin tablet Take 1 tablet by mouth 1 (one) time each day. Active magnesium, amino acid chelate, 133 mg tablet Take 1 tablet (133 mg total) by mouth 2 (two) times a day. Active polyethylene glycol (Golytely) 236-22.74-6.74 -5.86 gram solution Take 4L by mouth once for one dose. May substitue any PEG. Starting at 6PM the night before your procedure drink 1 8oz glasses at your own pace until you complete half of the gallon. Finish 2nd half of the gallon 5 hours before your procedure. 4000 mL 5 Active bisacodyL (DULCOLAX) 5 mg EC tablet Take 2 tablets by mouth right before beginning bowel prep. See instructions provided by the office 2 tablet 5 Active bisacodyL (DULCOLAX) 5 mg EC tablet Take 2 tablets by mouth right before beginning bowel prep. See instructions provided by the office 2 tablet 5 Active polyethylene glycol (Golytely) 236-22.74-6.74 -5.86 gram solution Take 4L by mouth once for one dose. May substitue any PEG. Starting at 6PM the night before your procedure drink 1 8oz glasses at your own pace until you complete half of the gallon. Finish 2nd half of the gallon 5 hours before your procedure. 4000 mL 5 Active Active Problems Problem Noted Date Diagnosed Date HTN (hypertension) Hyperlipemia Myocardial infarct, old [place] on CPAP Colon polyps Encounters Date Type Department Care Team Description 01/05/2025 Telephone Gastroenterology - [address] [phone] Janelle Gallegos [place] Results 01/03/2025 9:17 AM EDT Anesthesia Event [facility] Endoscopy [address] [place] [phone] Kevin Laguna DO Chang, Daniel J, MD 01/03/2025 8:51 AM EDT - 01/03/2025 11:59 PM EDT Hospital Encounter [facility] Endoscopy [address] [place] [phone] Saravanan Woodson MD Georgette, Nathaniel, CRNA Change in bowel habit; Left lower quadrant abdominal pain Discharge Disposition: Home or Self Care 12/28/2024 Telephone Gastroenterology - [address] [phone] Saravanan Woodson MD from Last 3 Months Surgical History Surgery Date Site/Laterality Comments THYROID COLONOSCOPY W/ POLYPECTOMY 07/14/2021 - 08/13/2021 Alisha, 3 yrs [address] ANGIOPLASTY WITH [facility] ENT PLACEMENT APPENDECTOMY Medical History Medical History Date Comments HTN (hypertension) Hyperlipemia [place] on CPAP Myocardial infarct, old Colon polyps Family History Medical History Relation Name Comments Colon cancer Mother Relation Name Status Comments Mother Social History Tobacco Use Types Packs/Day Years Used Date Smoking Tobacco: Former Cigarettes Smokeless Tobacco: Never Alcohol Use Standard Drinks/Week Comments Yes 0 (1 standard drink = 0.6 oz pur e alcohol) social Interpersonal Safety Answer Date Record ed Physical Abuse 01/03/2025 Verbal Abuse 01/03/2025 Sex and Gender Information Value Date Recorded Sex Assigned at Not on file Legal Sex Male 1:08 AM EST Gender Identity Not on file Sexual Orientation Not on file Obstetrics History Last Filed Vital Signs Vital Sign Reading Time Taken Comments Blood Pressure 166/72 01/03/2025 9:57 AM EDT Pulse 53 01/03/2025 9:57 AM EDT Temperature 36.7 C (98.1 F) 01/03/2025 9:37 AM EDT Respiratory Rate 16 01/03/2025 9:57 AM EDT Oxygen Saturation 99% 01/03/2025 9:57 AM EDT Inhaled Oxygen Concentration - - Weight 103 kg (228 lb) 01/03/2025 9:09 AM EDT Height 185.4 cm (6' 1 ) 01/03/2025 9:09 AM EDT Body Mass Index 30.08 01/03/2025 9:09 AM EDT Plan of Treatment Health Maintenance Due Date Last Done Comments COVID-19 Vaccine ( season) 2024 04/27/2022, 11/10/2021, 04/27/2021, Additional history exists Depression Screening 07/14/2024 Cholesterol Screening (Lipid Panel) 10/11/2024 Hepatitis C Screening 10/11/2024 Social Influencers of Health Screening 10/11/2024 Influenza Vaccine (#1) 2025 , 04/27/2022, 03/23/2021, Additional history exists Hypertension/CHF/CAD Annual BMP Blood Test 10/19/2025 10/19/2024 Falls Risk Assessment 01/03/2026 01/03/2025 DTaP,Tdap,and Td Vaccines (3 - Td or Tdap) 12/15/2032 12/15/2022, 10/15/2010 Hepatitis A Vaccines Aged Out 06/27/2011, 11/26/2010, 10/15/2010 No longer eligible based on patient's age to complete this topic Hepatitis B Vaccines Completed 06/27/2011, 11/26/2010, 10/15/2010 Pneumococcal Vaccine: 50+ Years Completed 10/07/2017, 09/20/2016 Zoster Vaccines Completed 07/10/2023, 03/26/2023 RSV Immunization Adult Patients Completed 04/29/2024 Colorectal Cancer Screening: Colonoscopy Discontinued 01/03/2025 HIB Vaccines Aged Out No longer eligi ble based on patient's age to complete this topic HPV Vaccines Aged Out No longer eligi ble based on patient's age to complete this topic IPV Vaccines Aged Out No longer eligi ble based on patient's age to complete this topic MMR Vaccines Aged Out No longer eligi ble based on patient's age to complete this topic Meningococcal ACWY Vaccine Aged Out N o longer eligible based on patient's age to complete this topic Meningococcal B Vaccine Aged Out No l onger eligible based on patient's age to complete this topic RSV Immunization Patients Under 20 months Aged Out No longer eligible based on patient's age to complete this topic Varicella Vaccines Aged Out No longer eligible based on patient's age to complete this topic Procedures Procedure Name Priority Date/Time Associated Diagnosis Comments COLONOSCOPY Routine 01/03/2025 9:36 AM EDT Change in bowel habit Left lower quadrant abdominal pain TISSUE EXAM Routine 01/03/2025 9:34 AM EDT Change in bowel habit Left lower quadrant abdominal pain COMPREHENSIVE METABOLIC PANEL Routine 10/19/2024 3:59 PM EDT Change in bowel habit Left lower quadrant abdominal pain from Last 3 Months or Most Recently Relevant to Health Maintenance Results * COLONOSCOPY Anesthesia - MAC; [facility] ENDOSCOPY (01/03/2025 9:36 AM EDT) Anatomical Region Laterality Modality Other 01/03/2025 9:16 AM EDT Impressions 01/03/2025 9:37 AM EDT - One 4 mm polyp at 20 cm proximal to the anus, removed with a cold snare. Resected and retrieved. - Diverticulosis in the sigmoid colon. - Non-bleeding internal hemorrhoids. - The examination was otherwise normal on direct and retroflexion views. Recommendation: - Discharge patient to home. - High fiber diet. - Continue present medications. - Await pathology results. - Repeat colonoscopy for surveillance based on pathology results. - Return to GI office PRN. Narrative 01/03/2025 9:[address] [facility] GI Patient Name: Jake Castillo Procedure Date: 01/03/2025 9:16 AM Date of : 1945 Age: 79 Room: ROOM 14 Gender: Male Note Status: Finalized Attending MD: Saravanan Woodson MD, Procedure Date No Time: 01/03/2025 Procedure: Colonoscopy Indications: High risk colon cancer surveillance: Personal history of colonic polyps Providers: Saravanan Woodson MD Referring MD: Saravanan Woodson MD Medicines: Monitored Anesthesia Care Complications: No immediate complications. Estimated Blood Loss: Estimated blood loss: none. Procedure: Pre-Anesthesia Assessment: - ASA Grade Assessment: III - A patient with severe systemic disease. - After reviewing the risks and benefits, the patient was deemed in satisfactory condition to undergo the procedure. After I obtained informed consent, the scope was passed under direct vision. Throughout the procedure, the patient's blood pressure, pulse, and oxygen saturations were monitored continuously.The Olympus Colonoscope was introduced through the anus and advanced to the cecum, identified by appendiceal orifice and ileocecal valve. The colonoscopy was performed without difficulty. The patient tolerated the procedure well. The quality of the bowel preparation was good. Findings: A 4 mm polyp was found at 20 cm proximal to the anus. The polyp was sessile. The polyp was removed with a cold snare. Resection and retrieval were complete. Estimated blood loss was minimal. Scattered small-mouthed diverticula were found in the sigmoid colon. Non-bleeding internal hemorrhoids were found during retroflexion. The hemorrhoids were small. The exam was otherwise without abnormality on direct and retroflexion views. Procedure Code(s): --- Professional --- 17357, Colonoscopy, flexible; with removal of tumor(s), polyp(s), or other lesion(s) by snare technique Diagnosis Code(s): --- Professional --- Z86.010, Personal history of colonic polyps D12.6, Benign neoplasm of colon, unspecified CPT copyright 2020 [employer]. All rights reserved. The codes documented in this report are preliminary and upon manufacturing engineering manager review may be revised to meet current compliance requirements. Saravanan Woodson MD 01/03/2025 9:37:49 AM This report has been signed electronically.Saravanan Woodson MD Number of Addenda: 0 Note Initiated On: 01/03/2025 9:16 AM Scope In: Scope Out: Endoscopy Department at [facility] - [address] [place] [phone] Procedure Note Saravanan Woodson MD - 01/03/[address] [facility] GI Patient Name: Jake Castillo Procedure Date: 01/03/2025 9:16 AM Date of : 1945 Age: 79 Room: ROOM 14 Gender: Male Note Status: Finalized Attending MD: Saravanan Woodson MD, Procedure Date No Time: 01/03/2025 Procedure: Colonoscopy Indications: High risk colon cancer surveillance: Personalhistory of colonic polyps Providers: Saravanan Woodson MD Referring MD: Saravanan Woodson MD Medicines: Monitored Anesthesia Care Complications: No immediate complications. Estimated Blood Loss: Estimated blood loss: none. Procedure: Pre-Anesthesia Assessment: - ASA Grade Assessment: III - A patient with severe systemic disease. - After reviewing the risks and benefits, thepatient was deemed in satisfactory condition to undergo the procedure. After I obtained informed consent, the scope was passed under direct vision. Throughout theprocedure, the patient's blood pressure, pulse, and oxygen saturations were monitored continuously.The Olympus Colonoscope was introduced through the anus and advanced to the cecum, identified by appendiceal orifice and ileocecal valve. The colonoscopy was performed without difficulty. The patient tolerated the procedure well. The quality of the bowel preparation was good. Findings: A 4 mm polyp was found at 20 cm proximal to theanus. The polyp was sessile. The polyp was removed with a cold snare. Resection and retrieval were complete. Estimated blood loss was minimal. Scattered small-mouthed diverticula were found inthe sigmoid colon. Non-bleeding internal hemorrhoids were found during retroflexion. The hemorrhoids were small. The exam was otherwise without abnormality ondirect and retroflexion views. Procedure Code(s): --- Professional --- 10952, Colonoscopy, flexible; with removal of tumor(s), polyp(s), or other lesion(s) by snare technique Diagnosis Code(s): --- Professional --- Z86.010, Personal history of colonic polyps D12.6, Benign neoplasm of colon, unspecified CPT copyright 2020 [employer]. All rights reserved. The codes documented in this report are preliminary and upon manufacturing engineering manager reviewmay be revised to meet current compliance requirements. Saravanan Woodson MD 01/03/2025 9:37:49 AM This report has been signed electronically.Saravanan Woodson MD Number of Addenda: 0 Note Initiated On: 01/03/2025 9:16 AM Scope In: Scope Out: Endoscopy Department at [facility] - [address] [place] [phone] IMPRESSION: - One 4 mm polyp at 20 cm proximal to the anus, removed with a cold snare. Resected andretrieved. - Diverticulosis in the sigmoid colon. - Non-bleeding internal hemorrhoids. - The examination was otherwise normal on directand retroflexion views. Recommendation: - Discharge patient to home. - High fiber diet. - Continue present medications. - Await pathology results. - Repeat colonoscopy for surveillance based on pathology results. - Return to GI office PRN. us Saravanan Woodson MD GI~PROCEDURE ORDERABLES Final Result * Tissue exam (01/03/2025 9:34 AM EDT) Final Diagnosis A. Colon, polyp at 20cm: - Hyperplastic polyp. 01/04/2025 10:13 AM EDT [facility] Gross Description A. Colon, polyp at 20cm: Labeled colon polyp at . Received in formalin, is an approximately 0.6 cm in greatest diameter soft to rubbery, barry-pink to red, polypoid tissue fragment, inked green at the margin, admixed with fecal/food debris, which is wrapped in paper and submitted in toto in one cassette, one piece, multiple levels. hs/DG 01/04/2025 10:13 AM EDT [facility] Disclaimer Unless otherwise specified, all tissue is 10% NB formalin fixed and paraffin embedded. 01/04/2025 10:13 AM T [facility] Tissue Colon structure / Unknown 01/03/2025 9:34 AM EDT 01/03/2025 10:45 AM EDT us Saravanan Woodson MD LAB PATHOLOGY ORDERABLES Dolores samano Result [facility] [address] [place] [address], [place] [phone] * (ABNORMAL) Comprehensive metabolic panel (10/19/2024 3:59 PM EDT) Sodium 138 133 - 145 mmol/L LAB CHEMISTRY METHOD 10/19/2024 5:10 PM [facility] Potassium 4.0 3.5 - 5.5 mmol/L LAB CHEMISTRY METHOD 10/19/2024 5:10 PM [facility] Chloride 104 96 - 110 mmol/L LAB CHEMISTRY METHOD 10/19/2024 5:10 PM [facility] CO2 28 21 - 32 mmol/L LAB CHEMISTRY METHOD 10/19/2024 5:10 PM [facility] Anion Gap 6 3 - 11 LAB CHEMISTRY METHOD 10/19/2024 5:10 PM [facility] Glucose 139(H) 70 - 100 mg/dL LAB CHEMISTRY METHOD 10/19/2024 5:10 PM [facility] BUN 14 5 - 25 mg/dL LAB CHEMISTRY METHOD 10/19/2024 5:10 PM [facility] Creatinine 0.69(L) 0.70 - 1.30 mg/dL LAB CHEMISTRY METHOD 10/19/2024 5:10 PM T [facility] eGFR 95 >=60 mL/min/1. 73m2 LAB CHEMISTRY METHOD 10/19/2024 5:10 PM [facility] Comment:Calculation based on the Chronic Kidney Disease Epidemiology Collaboration (CKD-EPI) equation refit without adjustment for race. BUN/Creatinine Ratio 20.3 LAB CHEMISTRY METHOD 10/19/2024 5:10 PM [facility] Calcium 8.8 8.5 - 10.5 mg/dL LAB CHEMISTRY METHOD 10/19/2024 5:10 PM [facility] AST (SGOT) 19 10 - 42 unit/L LAB CHEMISTRY METHOD 10/19/2024 5:10 PM [facility] ALT (SGPT) 29 10 - 60 unit/L LAB CHEMISTRY METHOD 10/19/2024 5:10 PM [facility] Alkaline Phosphatase 65 42 - 121 unit/L LAB CHEMISTRY METHOD 10/19/2024 5:10 PM [facility] Total Protein 6.4 6.0 - 8.0 g/dL LAB CHEMISTRY METHOD 10/19/2024 5:10 PM [facility] Albumin 3.4 3.2 - 5.0 g/dL LAB CHEMISTRY METHOD 10/19/2024 5:10 PM [facility] Total Bilirubin 0.5 0.0 - 1.4 mg/dL LAB CHEMISTRY METHOD 10/19/2024 5:10 PM [facility] Blood Venous blood specimen / Unknown Venipuncture / Unknown 10/19/2024 3:59 PM EDT 10/19/2024 4:12 PM EDT us Saravanan Woodson MD LAB BLOOD ORDERABLES Final Re sult [facility] [address] [place] [address], [place] [phone] from Last 3 Months or Most Recently Relevant to Health Maintenance Insurance [facility] [place] [id number] MEDICARE Care Teams Production Posting Clerk Relationship Specialty Start Date End Date Chay Little MD [address] [place] [id number] PCP - General Internal Medicine 10/11/24
[2025-02-22 14:03] LABS: Anion Gap 11 (12-20); Blood Urea Nitrogen 15 mg/dL (9-16); Calcium 8.9 mg/dL (8.4-10.2); Carbon Dioxide 27 mmol/L (22-29); Chloride 107 mmol/L (96-108); Estimated Glomerular Filt Rate > 60; Potassium 4.1 mmol/L (3.3-5.1); Sodium 141 mmol/L (135-145)
== END 2025-02-22 12:18 | disposition home or self-care (01) ==
LOC: HO.LAB 12:17
PROVIDERS: PCP Internal Medicine; Visit Provider Internal Medicine Cardiovascular Disease
DX: I25.5 Ischemic cardiomyopathy (principal); I25.10 Atherosclerotic heart disease of native coronary artery without angina pectoris; I10 Essential (primary) hypertension
CPT/HCPCS: 36415; 80048

== ENCOUNTER 2025-04-08 07:45 | Outpatient (REF) | payer MEDICARE, OTHER, SELFPAY ==
--- OUTSIDE RECORDS SUMMARY | 2019-08-08 11:40 | XMS_ITS | Encounter Summary ---
Author Organization [facility] Address [address] [place] [phone] Phone Care Team Providers Care Continuity Reader Name Role Phone Chay Little MD Primary Care Provider Encounter Details Date Type Department Care Team (Late st Contact Info) Description 08/08/2019 10:40 AM EST Hospital Encounter [facility] [address] [place] [phone] Shannon Fernandes, GOLDSMITH APPRENTICE [address] [place] [address] [email or web address] Social History Tobacco Use Types Packs/Day Years [...] 3:30 PM EDT Giuseppe Vieyra RN * [place] Suicide Severity Rating Scale (Screener/Recent Self-Report) Question [...] Snowden on 08/08/2019 10:58 AM Shannon Fernandes GOLDSMITH APPRENTICE IMG XR CHEST Final R esult documented in this encounter Visit Diagnoses Not on filedocumented in this encounter Additional Health Concerns Infection Onset Date Last Indicated Resolved Time CoV-Risk 12/15/2022 12/15/2022 12/26/2022 1:21 AM EDT CoV-Exposed Comment:Recent close contact documented in the COVID-19 PCR/PRO order 12/15/2022 12/15/2022 12/26/2022 1:21 AM E DT CoV-Risk 02/26/2024 02/26/2024 03/08/2024 1:23 AM EDT documented as of this encounter Care Teams Continuity Reader Relationship Specialty Start Date End Date Chay Little MD [address] [place] [address] [address] [place], [place]EDRO [id number] PCP - General 05/01/17 documented as of this encounter Additional Source Comments The information contained in this document represents components of the legal health record. It is not the complete legal health record.[facility]
--- OUTSIDE RECORDS SUMMARY | 2024-04-12 09:45 | XMS_ITS ---
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 coronary artery without angina pectoris I25.10 ; [...] inability 04/12/20[address] t disease of 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 Hypercholesterolemia stable, is at goal, will continue current regiment Essential hypertension doing well, is at goal, will continue current regiment Chronic systolic congestive heart failur e stable, doing well, will continue curent regiment Colon cancer screening guaiac negative Depression screening negative screen Next Appt Details Follow Up: 6 Months, Reason: Provider Name:Chay Dodson Elkedeysi ier, 04/15/2025 11:00:00 AM, [address], [address], [place], [place], [phone], Progress Notes * PERNELL CASTILLODOB:1945 (78 yo M)Acc No.[id number]:04/12/2024 Progress Notes Patient: PERNELL DORMAN Provider: Reji Little MD :1945 A ge:78 Y S ex:Male Date:04/12/2024 Address:[address] [place], [place] [phone] Subjective: * Chief Complaints: * A nnual [...] 1 son(s) , 1 daughter(s) . . Father-OK Mother Old age, Denies mental health/substance abuse [...] Iron Binding 192 - ug/dL L ab:Comprehensive [place]. Panel Fast (Order Date - 02/24/2024) (Collection [...] mg/dL Urine Blood Negative Negative - Specific [place] - Urine 1.015 1.005-1.025 - Urine Protein [...] 5 . A therosclerotic heart disease of [place] coronary artery without angina pectoris - I25.10 [...] inability 5. A therosclerotic heart disease of [place] coronary artery without angina pectoris Notes: doing [...] Medicine: Counseling: C are goal follow-up plan: Genesis pink for abnormal BMI provided?Yes, Mario Alberto moura Normal BMI Follow-up G corby encouragement to exercise. CHF Care Plan: P [...] 0 04/12/2024 Generated for Nolvia rosado/Monse/Arleth on: 0 04/08/2025 12:43 PM EDT History and Physical Notes * HPI (History [...] had two or more falls in the st year?: No Communication Needs Communication Needs Does [...]
--- OUTSIDE RECORDS SUMMARY | 2024-05-10 10:15 | XMS_ITS ---
Author Organization Chay Little MD Address [address] [place] [phone] Care Team Providers Care Green Coffee Blender Name Role Phone Chay Little Primary Care Provider Allergies No Known Allergies REASON FOR VISIT COVID POSITVE tested today, c/o sore throat cough headache muscle pain, runny nose congestion nauseau x 1 day, Audio [phone] Medications Medication SIG (Take, Route, Frequency, Duration) [...] Location Date Provider Diagnosis Chay Little MD [address] [facility] [address] [place] [phone] 05/10/2024 Chay Little COVID-19 U07.1 Assessments Encounter [...] for use Next Appt Details Provider Name:Chay Rincon ier, 04/15/2025 11:00:00 AM, [address] [place] [address], [place] [address], [place], [place], [phone], Progress Notes * PERNELL CASTILLODOB:1945 (78 yo M)Acc No.[id number]:05/10/2024 Patient: PERNELL DORMAN Provider: Reji Little MD :1945 A ge:78 Y S ex:Male Date:05/10/2024 Address:[address] [place], [place] [phone] Subjective: * Chief Complaints: * C OVID POSITVE tested todayC/o sore throat cough headache muscle pain, runny nose congestion nauseau x 1 dayAudio [phone] * HPI: S ymptom(s): Telehealth L ocation of provider rendering services: [address] [facility], Suite [facility], ocation of patient: o ther (please specify), [...] taken no temp. Assessment: * Assessment: 1. C OVID-19 - U07.1 (Primary) Plan: * Treatment: * Procedure Codes: 9 9442 PHONE E/M BY PHYS 11-20 MIN * * Sign off status: Completed true * Provider: Reji Little MD Date: Generated for Nolvia rosado/Monse/Pabloitting on: 0 04/08/2025 12:43 PM EDT History and Physical Notes * HPI (History of Present Illness) Category Sub-Category Detail Notes Category Not es Symptom(s) Telehealth Location of [facility] ider rendering services:: [address], [address] [...]
--- OUTSIDE RECORDS SUMMARY | 2024-05-11 10:05 | XMS_ITS ---
Author Organization Chay Little MD Address [address] [place] [phone] Care Team Providers Care Shovel Loader Operator Name Role Phone Chay Little Primary Care Provider [phone] REASON FOR VISIT med issue Encounters Encounter Location Date Provider Diagnosis Chay Little MD [address] [place] [phone] 05/11/2024 Chay Little Plan Of Treatment Next Appt Details Provider Name:Chay Rincon ier, 04/15/2025 11:00:00 AM, [facility], [address] [place] [address], [phone], Progress Notes * PERNELL CASTILLODOB:1945 (78 yo M)Acc No.[id number]:05/11/2024 Patient: PERNELL DORMAN :1945 A ge:78 Y S ex:Male Address:[address] [place] [address], [phone] * true * Date: Generated for Printi ng/Faxing/eTransmitting on: 0 04/08/2025 12:42 PM EDT
--- OUTSIDE RECORDS SUMMARY | 2024-05-13 14:30 | XMS_ITS | Encounter Summary ---
Author Organization [facility] Address [address] [facility] [address] [place] [phone] Phone Care Team Providers Care Manager Security And Safety Name Role Phone Chay Little MD Primary Care Provider Encounter Details Date Type Department Care Team (Late st Contact Info) Description 05/13/2024 2:30 PM EDT Hospital Encounter [facility] [address] [place] [phone] [address] Coker, [address] [place] [address] [email or web address] Social History Tobacco Use Types Packs/Day Years [...] originallycreated by Fabricio Clark MD. Hoda Coker PROJECTION PRINTER IMG XR CHEST Final Resu lt documented in this encounter Visit Diagnoses Not on filedocumented in this encounter Care Teams Manager Security And Safety Relationship Specialty Start Date End Date Chay Little MD [address] [place] [address] Dr [place], [place] [address] PCP - General 05/01/17 documented as of this encounter Additional Source Comments The information contained in this document represents components of the legal health record. It is not the complete legal health record.[facility]
--- OUTSIDE RECORDS SUMMARY | 2024-10-08 06:15 | XMS_ITS ---
Author Organization Chay Little MD Address [address] [place] [phone] Care Team Providers Care Assistant News Director Name Role Phone Leticiaboubacar Chay Primary Care Provider Allergies No Known Allergies Reason For Referral [...] Location Date Provider Diagnosis Chay Little MD [address] [place] [address] Drive [address] [place], [place] [phone] 10/08/2024 Chay Little Bowel habit changes R19.4 [...] [facility] Next Appt Details Provider Name:Chay mares, 04/15/2025 11:00:00 AM, [address] [place] [address] Drive, [address], [place], [place], [phone], Progress Notes * PERNELL CASTILLODOB:1945 (79 yo M)Acc No.[id number]:10/08/2024 Progress Notes Patient: PERNELL DORMAN Provider: Reji Little MD :1945 A ge:79 Y S ex:Male Date:10/08/2024 Address:[address] [place], [place] [phone] Subjective: * Chief Complaints: * 6 month [...] Little MD Date: 0 10/08/2024 Generated for Nolvia rosado/Monse/Pabloitting on: 0 04/08/2025 [...]
--- OUTSIDE RECORDS SUMMARY | 2024-11-09 12:36 | XMS_ITS | Encounter Summary ---
Author Organization [facility] Address [address] [place] [phone] Phone Care Team Providers Care Security Systems Specialist Name Role Phone Chay Little MD Primary Care Provider Encounter Details Date Type Department Care Team (Late st Contact Info) Description 11/09/2024 12:36 PM EDT Hospital Encounter [facility] [address] [place] [phone] Shannon Fernandes, BULB ASSEMBLER [address] [place] [address] [email or web address] Social History Tobacco Use Types Packs/Day Years [...] clinician's provided indication for this examination [facility]: Cough COMPARISON: XR CHEST PA AND LATERAL 2 VIEWS FINDINGS: Devices/Tubes/Lines: None. Lungs: No consolidation or significant pulmonary edema. Pleura: No pleural effusion or pneumothorax. Heart/Mediastinum: The cardiomediastinal silhouette is normal. Bones/Soft Tissues: No acute skeletal abnormality. Procedure Note Kirk Agrawal MD - 11/09/2024 XR CHEST PA AND LATERAL 2 VIEWS Referring clinician's provided indication for this examination in [facility]:Cough COMPARISON: XR CHEST PA AND LATERAL 2 VIEWS FINDINGS: Devices/Tubes/Lines: None. Lungs: No consolidation or significant pulmonary edema. Pleura: No pleural effusion or pneumothorax. Heart/Mediastinum: The cardiomediastinal silhouette is normal. Bones/Soft Tissues: No acute skeletal abnormality. IMPRESSION: No acute radiographic abnormality. Shannon Fernandes BULB ASSEMBLER IMG XR CHEST Final R esult documented in this encounter Visit Diagnoses Not on filedocumented in this encounter Care Teams Security Systems Specialist Relationship Specialty Start Date End Date Chay Little MD [address] [place] [address] [place] [address] PCP - General 05/01/17 documented as of this encounter Additional Source Comments The information contained in this document represents components of the legal health record. It is not the complete legal health record.[facility]
--- OUTSIDE RECORDS SUMMARY | 2025-04-08 03:45 | XMS_ITS ---
Author Organization Chay Little MD Address [address] [place], [place] [phone] Care Team Providers Care Mechanical Energy Engineer Name Role Phone Sidney Chay Primary Care Provider Results Component Value Reference Range Notes UA ClnCatch+Micro w/rflx Cul t (Not yet reviewed by provider) Interpretation: Performing Lab:[address] [phone] Notes/Report: Urine, Clean Catch Color Urine Yellow Appearance Urine Clear PH 6.5 5.0-9.0 Glucose Urine UA Negative Negative mg/dL Urine Blood Negative Negative Specific [place] - Urine 1.015 1.005-1.025 Urine Protein 30 (1+) Neg-Trace mg/dL Urine Ketones Negative Negative mg/dL Nitrite Urine Negative Negative Leukocyte Esterase Urine Negative Negative RBC Urine 0-2 0-2 /HPF WBC Urine 0-5 0-5 /HPF Squamous Epithelial Cell Urine 0-2 0-2 /HPF Bacteria Urine None Seen None Seen Hyaline Casts Urine 0-2 0-2 /LPF Complete Blood Count Auto Di ff Reviewed date:04/08/2025 12:34:15 PM Interpretation: Performing Lab:[facility], [address] [place] [phone] Notes/Report: White Blood Count 9.3 4.8-10.8 X10*3/uL [...] NRBC Abs Auto 0.000 0.0-0.012 X10*3/uL Comprehensive [place]. Panel Fa st Reviewed date:04/08/2025 12:42:07 PM Interpretation: Performing Lab:[facility], [address] [place] [address] Notes/Report: Sodium 142 135-145 mmol/L Potassium 4.2 [...] PROFILE Reviewed date:04/08/2025 12:17:39 PM Interpretation: Performing Lab:[address] [phone] Notes/Report: Iron 109 45-160 mcg/dL Total Iron Binding Capacity 270 228-428 mcg/d L Percent Iron Saturation 40 15-50 % Unsaturated Iron Binding 161 Lipid Panel Reviewed date:04/08/2025 12:26:12 PM Interpretation: Performing Lab:[facility], [address] [place] [phone] Notes/Report: Triglycerides 71 <150 mg/dL Desirable Triglyceride: [...] (Free>4and<10) Reviewed date:04/08/2025 12:17:19 PM Interpretation: Performing Lab:[facility], [address] [place] [phone] Notes/Report: PSA,Total (Free>4and<10) 1.29 0.00-4.00 ng/mL A [...] Barrera Alinity i Chemiluminescent Microparticle Immunoassay (CMIA) REASON FOR VISIT yearly fasting labs Encounters Encounter Location Date Provider Diagnosis Chay Little MD [address] [place] [address] [place] [phone] 04/08/2025 Chay Little Blood tests for rout [...] type (ICD-10 - D50.9) Plan Of Treatment Pending Test Test Name Order Date UA ClnCatch+Micro w/rflx Cult 04/08/2025 Next Appt Details Provider Name:Chay maers, 04/15/2025 11:00:00 AM, [address] [place] [address], Suite [facility], [place], [place], [phone], Progress Notes * PERNELL CASTILLODOB:1945 (79 yo M)Acc No.[id number]:04/08/2025 Progress Note Patient: Luis Antonio NOEMIPERNELL Solis Provider: Reji Little MD :1945 A ge:79 Y S ex:Male Date:04/08/2025 Address:[address] [place], [place] [phone] Subjective: * Chief Complaints: * 1 . [...] * Treatment: 2. H ypercholesterolemia L AB: UA ClnCatch+Micro w/rflx Cult (Collection Date & Time - 04/08/2025 07:45 AM) L AB: Complete Blood Count Auto Diff (Collection Date & Time - 04/08/2025 07:45 AM) L AB: Comprehensive [place]. Panel Fast (Collection Date & Time - 04/08/2025 07:45 AM) L AB: IRON PROFILE (Collection Date & Time - 04/08/2025 07:45 AM) L AB: Lipid Panel (Collection Date & Time - 04/08/2025 07:45 AM) L AB: PSA,Total (Free>4and<10) (Collection Date & Time - 04/08/2025 07:45 AM) 3. E ssential hypertension L AB: UA ClnCatch+Micro w/rflx Cult (Collection Date & Time - 04/08/2025 07:45 AM) L AB: Complete Blood Count Auto Diff (Collection Date & Time - 04/08/2025 07:45 AM) L AB: Comprehensive [place]. Panel Fast (Collection Date & Time - 04/08/2025 07:45 AM) L AB: IRON PROFILE (Collection Date & Time - 04/08/2025 07:45 AM) L AB: Lipid Panel (Collection Date & Time - 04/08/2025 07:45 AM) L AB: PSA,Total (Free>4and<10) (Collection Date & Time - 04/08/2025 07:45 AM) 4. P rostatism L AB: UA ClnCatch+Micro w/rflx Cult (Collection Date & Time - 04/08/2025 07:45 AM) L AB: Complete Blood Count Auto Diff (Collection Date & Time - 04/08/2025 07:45 AM) L AB: Comprehensive [place]. Panel Fast (Collection Date & Time - 04/08/2025 07:45 AM) L AB: IRON PROFILE (Collection Date & Time - 04/08/2025 07:45 AM) L AB: Lipid Panel (Collection Date & Time - 04/08/2025 07:45 AM) L AB: PSA,Total (Free>4and<10) (Collection Date & Time - 04/08/2025 07:45 AM) 5. I antoine deficiency anemia, unspecified iron deficiency anemia type L AB: UA ClnCatch+Micro w/rflx Cult (Collection Date & Time - 04/08/2025 07:45 AM) L AB: Complete Blood Count Auto Diff (Collection Date & Time - 04/08/2025 07:45 AM) L AB: Comprehensive [place]. Panel Fast (Collection Date & Time - [...] MD Date: 0 04/08/2025 Generated for Nolvia rosado/Monse/Pabloitting on: 04/08/2025 12:42 PM EDT
[2025-04-08 11:05] LABS: MANUAL DIFF FLAG NO
[2025-04-08 11:17] LABS: Hematocrit 39.2 % (42.0-52.0); Hemoglobin 13.4 g/dl (14.0-18.0); Mean Corpuscular Volume 94.7 fL (80.0-98.0); Red Blood Count 4.14 X10*6/uL (4.60-5.80); White Blood Count 9.3 X10*3/uL (4.8-10.8)
[2025-04-08 11:18] LABS: Appearance Urine Clear; Glucose Urine UA Negative (Negative); Imm Gran Abs Auto 0.04 X10*3/uL (0.00-0.03); Imm Gran Pct Auto 0.4 % (0.0-0.4); Lymphocytes Absolute Auto 1.9 X10*3/uL (1.2-4.9); Mean Corpuscular HGB Conc 34.2 g/dl (31.0-36.0); Mean Corpuscular Hemoglobin 32.4 pg (27.0-33.0); NRBC Abs Auto 0.000 X10*3/uL (0.0-0.012); NRBC Pct Auto 0.0 /100WBC (0.0-0.2); PH 6.5 (5.0-9.0); Platelet Count 206 X10*3/uL (160-400); Specific Gravity - Urine 1.015 (1.005-1.025); UMIC TRIGGER UACC YES
[2025-04-08 11:27] LABS: Alanine Aminotransferase 22 U/L (0-40); Albumin Level 3.9 g/dL (3.5-5.0); Alkaline Phosphatase 50 U/L (39-117); Anion Gap 10 (12-20); Aspartate Amino Transferase 24 U/L (5-37); Blood Urea Nitrogen 16 mg/dL (9-16); Calcium 8.5 mg/dL (8.4-10.2); Carbon Dioxide 29 mmol/L (22-29); Chloride 107 mmol/L (96-108); Cholesterol 217 mg/dL (<200); Estimated Glomerular Filt Rate > 60; HDL Cholesterol 65 mg/dL (>40); Iron 109 mcg/dL (45-160); Percent Iron Saturation 40 % (15-50); Potassium 4.2 mmol/L (3.3-5.1); Sodium 142 mmol/L (135-145); Total Iron Binding Capacity 270 mcg/dL (228-428); Total Protein 6.3 g/dL (6.5-8.0); Triglycerides 71 mg/dL (<150); Unsaturated Iron Binding 161 ug/dL
[2025-04-08 11:47] LABS: PSA,Total (Free>4and<10) 1.29 ng/mL (0.00-4.00)
--- OUTSIDE RECORDS SUMMARY | 2025-04-08 12:42 | XMS_ITS | Encounter Summary ---
Author Organization [facility] Address [address] [place] [phone] Phone Care Team Providers Care Piano Professor Name Role Phone Chay Little MD Primary Care Provider Encounter Details Date Type Department Care Team (Late st Contact Info) Description 11/16/2021 Procedure Pass [facility], Ct Scan - [address] [address] Social History Tobacco Use Types Packs/Day Years Used Date Smoking Tobacco: Former Cigarettes Q uit: 1994 Smokeless Tobacco: Never Alcohol Use Standard Drinks/Week Comments Yes 0 (1 standard drink = 0.6 oz pur e alcohol) mariely in the afternoon Sex and Gender Information Value Date Recorded Sex Assigned at Male 11/16/2021 11:35 AM EDT Legal Sex Male 10:06 PM EDT Gender Identity Male 11/16/2021 11:35 AM EDT Sexual Orientation Not on file documented as of this encounter Functional Status * Calculated C-SSRS Risk Score (Lifetime/Recent) Answer Date of Assessment Author No Risk Indicated 11/16/2021 11:34 AM EDT Yodit Robles RN * [place] Suicide Severity Rating Scale (Screener/Recent Self-Report) Question Answer Date of Assessment Author 1. Wish to be (Past 1 Month) No 022 11:34 AM EDT Yodit Robles, RN 2. Non-Specific Active Suici gonsalo Thoughts (Past 1 Month) No 11/16/2021 11:34 AM EDT Yodit Robles, RN 6. Suicidal Behavior (Lifetime) No 11:34 AM EDT Yodit Robles RN documented as of this encounter Plan [...] documented as of this encounter Care Teams Piano Professor Relationship Specialty Start Date End Date Chay Little MD [address] [place] [address] [place] [address] PCP - General 05/01/17 documented as of this encounter Additional Source Comments The information contained in this document represents components of the legal health record. It is not the complete legal health record.[facility]
--- OUTSIDE RECORDS SUMMARY | 2025-04-08 12:42 | XMS_ITS | Encounter Summary ---
Author Organization [facility] Address [address] [place] [phone] Phone Care Team Providers Care Loss Prevention Analyst Name Role Phone Chay Little MD Primary Care Provider Encounter Details Date Type Department Care Team (Late st Contact Info) Description 12/15/2022 Procedure Pass [facility], Ct Scan - [address] [address] Social History Tobacco Use Types Packs/Day Years [...] 3:30 PM EDT Giuseppe Vieyra RN * [place] Suicide Severity Rating Scale (Screener/Recent Self-Report) Question [...] Vieyra RN 6. Suicidal Behavior (Lifetime) No 3:30 PM EDT Giuseppe Vieyra RN documented [...] documented as of this encounter Care Teams Loss Prevention Analyst Relationship Specialty Start Date End Date Chay Little MD [address] [place] [address] [place] [address] PCP - General 05/01/17 documented as of this encounter Additional Source Comments The information contained in this document represents components of the legal health record. It is not the complete legal health record.[facility]
--- OUTSIDE RECORDS SUMMARY | 2025-04-08 12:42 | XMS_ITS | Encounter Summary ---
Author Organization [facility] Address [address] [place] [phone] Phone Care Team Providers Care Certified Respiratory Therapist Name Role Phone Chay Little MD Primary Care Provider Encounter Details Date Type Department Care Team (Late st Contact Info) Description 01/08/2022 Procedure Pass [facility] [place] [address] [place] [address] Social History Tobacco Use Types Packs/Day Years [...] documented as of this encounter Care Teams Certified Respiratory Therapist Relationship Specialty Start Date End Date Chay Little MD [address] [place] [address] [place] [address] PCP - General 05/01/17 documented as of this encounter Additional Source Comments The information contained in this document represents components of the legal health record. It is not the complete legal health record.[facility]
--- OUTSIDE RECORDS SUMMARY | 2025-04-08 12:42 | XMS_ITS | Encounter Summary ---
Author Organization [facility] Address [address] [place] [address] [place] [phone] Phone Care Team Providers Care Sales Marketing Name Role Phone Chay Little MD Primary Care Provider Reason for Referral * MRI/CAT Scan - Closed Specialty Diagnoses / Procedures Referred By Contac t Referred To Contact Radiology Diagnoses Coronary artery disease without angina pectoris, unspecified vessel or lesion type, unspecified whether [place] or transplanted heart Procedures NC Myocardial Perfusion Rest Single NC Myocardial Perfusion Pharmacologic Stress Multiple Yimi Stroud MD Phone: tel: fax: mailto: Referral ID Status Reason Start Date Expiration Date Visits Re quested Visits Authorized [id number] Closed 01/21/2023 01/21/2024 1 1 Encounter Details Date Type Department Care Team (Latest Contact Info) Description 01/27/2023 Ancillary Orders [facility] [address] [place] [address] 3rd Floor, [address] [place] [address] Yimi Stroud MD [address] [place] [address] [email or web address] Coronary artery disease without angina pectoris, unspecified vessel or lesion type, unspecified whether [place] or transplanted heart Social History Tobacco Use Types Packs/Day Years [...] on file documented as of this encounter Results * NC Myocardial Perfusion Rest Single (01/27/2023 2:05 PM EDT) LV Systolic Volume 105 mL LV Diastolic Volume 166 mL EF 37 % Anatomical Region Laterality Modality Heart, Vascular Ultrasound Narrative 01/28/2023 5:14 PM EDT Myocardial perfusion stress test report-abnormal 1 day rest protocol in supine position images were obtained. Patient was found to be severely bradycardic hence Lexiscan stress test was aborted and patient was referred for dobutamine stress test. Only rest images were interpreted as follows ; Myocardial perfusion defects were seen in the following segments and severity Rest images: Inferior wall-apical mid and basal segment Inferoseptal-apical mid and basal segment No stress images were acquired LV function: Ventricle is dilated. Ejection fraction is 37%. There is diffuse global hypokinesia. Conclusion: Only resting images show cardial perfusion defects in inferior wall and inferoseptal wall. Patient was referred for dobutamine stress echo due to severe bradycardia Recommendation ; Abnormal myocardial perfusion stress test. Clinical correlation suggested. Please follow the dobutamine stress echo. Nuclear Study Quality TYPE OF STUDY: Myocardial Perfusion Imaging after a rest protocol with gated SPECT. PROTOCOL USED: One day rest protocol in the supine position. Images were obtained in gated tomographic technique. Images were processed in SPECT format, reconstructed tomographically and compared [id number] in short axis, horizontal long axis and vertical long axis. DOSE: Technetium 99m Sestamibi 7.4 mCi injected intravenously in the right arm antecubital vein at rest on 01/27/2023 with post injection scan time of 60 minutes. Overall image quality is good. Rest study was gated successfully. Response to Stress REPORT: Weight: 232 lb BMI: 30.61 Jake Morin came in for nuclear stress test today. Reportedly cannot walk on the treadmill. Tells me that Dr Stroud ordered this test due to chest pressure and lightheadedness that occurs at rest. He is bradycardic today with a heart rate in the 50s. Multiple PVCs and runs of NSVT at rest. Reviewed with Dr Mukherjee. Not safe to give Lexiscan given bradycardia (has event monitor pending?). Will follow up with Dr Stroud re: dobutamine versus cath for ischemic work up. . Perfusion Comments Resting LV cavity volume was 128 mL. Nuclear Prior Study There is a prior study available for comparison that was performed on 01/08/2022. Rest Function Comments Left ventricular function at rest was abnormal. Resting ejection fraction was 37%. The rest end diastolic cavity size is mildly enlarged. Rest end diastolic index: 166 mL. The rest end systolic cavity size is mildly enlarged. Rest end systolic index: 105 mL. Perfusion Scoring Stress Summed Score: 16 Percent Normal: 23.53% Severe count reduction in the following segments: basal inferior, apical inferior and apex. Moderate count reduction in the following segments: basal inferoseptal and apical septal. Mild count reduction in the following segments: mid inferoseptal, mid inferior and apical lateral. All other segments are normal. Procedure Note Michael Mukherjee MD - 01/28/2023 Myocardial perfusion stress test report-abnormal 1 day rest protocol in supine position images were obtained. Patient wasfound to be severely bradycardic hence Lexiscan stress test was abortedand patient was referred for dobutamine stress test. Only rest images were interpreted as follows ; Myocardial perfusion defects were seen in the following segments andseverity Rest images: Inferior wall-apical mid and basal segment Inferoseptal-apical mid and basal segment No stress images were acquired LV function: Ventricle is dilated. Ejection fraction is 37%. There isdiffuse global hypokinesia. Conclusion: Only resting images show cardial perfusion defects in inferior wall andinferoseptal wall. Patient was referred for dobutamine stress echo due to severebradycardia Recommendation ; Abnormal myocardial perfusion stress test. Clinical correlation suggested. Please follow the dobutamine stress echo. us Yimi Stroud MD CV NM CARDIAC Final Result documented in this encounter Visit Diagnoses Diagnosis Pre-operative cardiovascular examination- Primary Coronary artery disease without angina pectoris, unspecified vessel or lesion type, unspecified whether [place] or transplanted heart Dyspnea on exertion Other dyspnea and respiratory abnormality Coronary artery disease without angina pectoris, unspecified vessel or lesion type, unspecified whether [place] or transplanted heart documented in this encounter Additional Health Concerns Infection Onset Date Last Indicated Resolved Time CoV-Risk 02/26/2024 02/26/2024 03/08/2024 1:23 AM EDT documented as of this encounter Care Teams Sales Marketing Relationship Specialty Start Date End Date Chay Little MD [address] [place] [address] [place] [address] PCP - General 05/01/17 documented as of this encounter Additional Source Comments The information contained in this document represents components of the legal health record. It is not the complete legal health record.[facility]
--- OUTSIDE RECORDS SUMMARY | 2025-04-08 12:43 | XMS_ITS | Clinical Summary ---
Author Organization [facility] Address [address] [place], [place] [id number] Phone Care Team Providers Care Screwhead Polisher Name Role Phone Chay Little MD Primary Care Provider Allergies No known active allergies Medications aspirin 81 MG EC tablet Active furosemide (LASIX) 20 MG tabletIndicatio ns:Dyspnea on exertion Take 1 tablet (20 mg total) by mouth daily. 90 tablet 3 2 Active spironolactone (ALDACTONE) 25 MG tabletIndicatio ns:Atherosclero sis of cheesh-na coronary artery of cheesh-na heart without angina pectoris TAKE 1 TABLET BY MOUTH DAILY 90 tablet 3 2 Active tamsulosin (FLOMAX) 0.4 mg Cap Take 1 capsule by mouth 2 (two) times a day. Active finasteride (PROSCAR) 5 mg tablet Take 1 tablet by mouth every morning. 3 Active coenzyme Q10 200 mg capsule Take 300 mg by mouth daily. Active nitroglycerin (NITROSTAT) 0.4 MG SL tabletIndicatio ns:Atherosclero sis of cheesh-na coronary artery of cheesh-na heart without angina pectoris Place 1 tablet (0.4 mg total) under the tongue as directed. 100 tablet 3 3 Active amLODIPine (NORVASC) 10 MG tabletIndicatio ns:Atherosclero sis of cheesh-na coronary artery of cheesh-na heart without angina pectoris TAKE 1 TABLET BY MOUTH DAILY 90 tablet 3 3 Active irbesartan (AVAPRO) 300 MG tabletIndicatio ns:Atherosclero sis of cheesh-na coronary artery of cheesh-na heart without angina pectoris TAKE 1 TABLET BY MOUTH IN THE EVENING AT BEDTIME 90 tablet 3 3 Active magnesium oxide 400 mg magnesium Cap Take 400 mg by mouth. 4 Active albuterol 90 mcg/actuation inhaler Inhale 2 puffs into the lungs every 6 (six) hours as needed. 6.7 g 4 Active bisacodyl (DULCOLAX) 5 mg EC tablet Take 2 tablets by mouth right before beginning bowel prep. See instructions provided by the office 5 Active multivitamin per tablet Take 1 tablet by mouth. Active carvedilol (COREG) 6.25 MG tablet Take 6.25 mg by mouth 2 (two) times a day with meals. Active Active Problems Problem Noted Date Diagnosed Date BPH (benign prostatic hyperplasia) 11/14/2024 Class 1 obesity 11/14/2024 AURORA (obstructive sleep apnea) 11/14/2024 Venous insufficiency 11/14/2024 Arthralgia of multiple joints 10/29/2023 Assessment & Plan (10/29/2023 9:01 AM EDT): He appears to have osteoarthritis in multiple joints with stiffness but no warmth or swelling. Suggested he try Tylenol arthritis 650 mg as needed. Sent him for some labs to evaluate for RA, inflammation and Lyme disease. Left elbow tendonitis 10/29/2023 Assessment & Plan (10/29/2023 9:01 AM EDT): Left elbow lateral epicondylitis from overuse. Pre-operative cardiovascular examination 022 Assessment & Plan (09/06/2022 3:31 PM EST): Patient would be considered moderate risk for procedure given his past medical history. We will get a postop EKG and monitor postop fluid and electrolytes. I would have him continue his aspirin throughout the course of his surgery, but definitely at least restart it as soon as he can afterwards. CAD (coronary artery disease), cheesh-na coronary a rtery 11/13/2020 Assessment & Plan (09/06/2022 3:30 PM EST): Patient had a nuclear stress test without any evidence of ischemia, only prior scar. He also had an echocardiogram with an EF of 50 to 55% and grade 1 diastolic dysfunction. He is currently not taking his aspirin because of the surgery coming up. I did supervisor counseling and guidance him that I would not have him stop the aspirin. He tells me he will start it again after his surgery. We will continue him on his current doses of amlodipine and carvedilol. Mixed hyperlipidemia 11/13/2020 Drug intolerance 03/31/2019 Atherosclerosis of cheesh-na co ronary artery of cheesh-na heart without angina pectoris 07/16/2017 Assessment & Plan (01/02/2022 2:05 PM EDT): Unfortunately, in discussing risk stratification for his upcoming ureteroscopy, he tells me that he has been experiencing progressive dyspnea on exertion reminiscent of his symptoms prior to heart attack many years ago. He has not had a nuclear stress test since August,. Will order a nuclear stress test in order to accurately risk stratify. He tells me that he is able to walk on a treadmill, but historically has had nuclear stress tests converted to pharmacological studies when his heart rate does not get to target. In that we are going to attempt an exercise stress test initially; I have instructed him to hold his carvedilol prior to testing, but bring to bring it with him to the test. Essential hypertension 07/16/2017 Assessment & Plan (09/06/2022 3:30 PM EST): Blood pressure today is 152/80. Last visit his blood pressure was 130/72. We will continue him on his current doses of amlodipine, carvedilol, and spironolactone. Ischemic cardiomyopathy 07/16/2017 Assessment & Plan (09/06/2022 3:34 PM EST): Patient reports he sometimes feels short of breath although he thinks a lot of it could be from his nose. He is currently on Lasix 40 mg daily. I would definitely have him continue this for now as he appears mildly hypervolemic on exam. I am also going to have him get an NT proBNP and basic metabolic panel. Mixed hyperlipidemia 07/16/2017 Assessment & Plan (09/06/2022 3:35 PM EST): I will have the patient get an updated lipid panel. LDL goal less than 70. He tells me that he has been trialed on statins and he felt like he needed a cane to get out of bed. We discussed other options such as Zetia, Leqvio, Repatha, or Praluent. Dyspnea on exertion 07/16/2017 Immunizations Immunization Administration Dates Next Due COVID-19 (Pre-05/05) Pfizer Vaccine, mRNA, PF 09/26/2020 Hep A-Hep B 06/27/2011,11/26/2010,10/15/2010 INFLUENZA, SPLIT VIRUS, TRIVALENT PF 03/24/2017, 08/12/2016 Influenza High-Dose Quadriva lent Preservative Free IM 03/16/2023,04/27/2022 Influenza High-Dose Trivalen t Preservative Free IM 03/23/2021,03/21/2020,04/09/2019,04/21,05/08/2015 Pneumococcal conjugate PCV13 10/07/2017 Pneumococcal polysaccharide PPSV23 09/20/2016 RSV Vaccine (bivalent) 04/29/2024 Tdap 12/15/2022,10/15/2010 Typhoid, ViCPs 10/15/2010 Zoster recombinant 07/10/2023,03/26/2023 Social History Tobacco Use Types Packs/Day Years Used Date Smoking Tobacco: Former Cigarettes Q uit: 1994 Smokeless Tobacco: Never Tobacco Cessation:Counseling Given: Not Answered Alcohol Use Standard Drinks/Week Comments Yes 0 [...] AM EDT Sexual Orientation Not on file Last Filed Vital Signs Vital Sign Reading Time Taken Comments Blood Pressure 119/69 12/22/2024 1:55 PM EDT Pulse 53 12/22/2024 1:55 PM EDT Temperature 36.7 C (98 F) 12/22/2024 1:55 PM EDT Respiratory Rate 18 12/22/2024 1:55 PM EDT Oxygen Saturation 98% 12/22/2024 1:55 PM EDT Inhaled Oxygen Concentration - - Weight 110.7 kg (244 lb) 02/26/2024 8:20 AM EDT Height 185.4 cm (6' 1 ) 10/29/2023 8:27 AM EDT Body Mass Index 32.19 10/29/2023 8:27 AM EDT Plan of Treatment Health Maintenance Due Date Last Done Comments DEPRESSION SCREENING 1959 HEPATITIS C SCREENING 1965 LIPID PANEL 12/19/2016 12/20/2015 CREATININE LEVEL 11/16/2022 11/16/2021 POTASSIUM LEVEL 11/16/2022 11/16/2021 INFLUENZA VACCINE (#1) 2025 , 04/27/2022, 03/23/2021, Additional history exists COVID-19 VACCINE ( season) 2025 04/27/2022, 11/10/2021, 04/27/2021, Additional history exists BLOOD PRESSURE 06/23/2025 12/22/2024 SMOKING Hx and SMOKELESS TOBACCO SCREENING 11/14/2025 11/14/2024 Adult Td,Tdap Booster 12/15/2032 12/15/2022, 011 HEPATITIS A VACCINES Aged Out 06/27/2011, 11/26/2010, 10/15/2010 No longer eligible based on patient's age to complete this topic PNEUMOCOCCAL VACCINES (50+ years) Completed 10/07/2017, 09/20/2016 ZOSTER VACCINES Completed 07/10/2023, 03/26/2023 RSV VACCINE Completed 04/29/2024 HIB VACCINES Aged Out No longer eligi ble based on patient's age to complete this topic MENINGOCOCCAL VACCINES (ACWY) Aged Out No longer eligible based on patient's age to complete this topic MENINGOCOCCAL VACCINES (B) Aged Out N o longer eligible based on patient's age to complete this topic Medical Devices Not on file Procedures Procedure Name Priority Date/Time Associated Diagnosis Comments BASIC METABOLIC PANEL STAT 11/16/2021 12:14 PM EDT OUTSIDE LDL Routine 12/20/2015 from Last 3 Months or Most Recently Relevant to Health Maintenance Results * (ABNORMAL) Basic metabolic panel (11/16/2021 12:14 PM EDT) SODIUM 138 133 - 146 mmol/L [facility] CHLORIDE 103 96 - 108 mmol/L [facility] POTASSIUM 4.1 3.3 - 5.1 mmol/L [facility] CO2 26 21 - 35 mmol/L [facility] BUN 22(H) 6 - 19 mg/dL [facility] CREATININE 0.80 0.5 - 1.5 mg/dL [facility] GLUCOSE 103(H) 70 - 99 mg/dL [facility] CALCIUM 9.4 8.4 - 10.3 mg/dL [facility] EGFR 93 >59 mL/min/1.7 3m2 [facility] Comment:Estimated glomerular filtration rate calculated using the CKD-EPI refit equation. ANION GAP 13 10 - 20 mmol/L [facility] Blood 11/16/2021 12:1 4 PM EDT 11/16/2021 12:39 PM EDT us Supa Sands MD LAB BLOOD ORDERAB LES Final Result [address] [address] * Outside LDL (12/20/2015) LDL - External 163 50 - 250 mg/ml us Historical Provider LAB BLOOD ORDERABLES Dolores l Result from Last 3 Months or Most Recently Relevant to Health Maintenance Insurance [facility] INDEMNITY MEDICARE motifyILCrowdTangle [facility] INDEMNITY MEDICARE RAILROAD Member Subscriber Plan / Payer (Ef fective 2012-Present) Name:Jake Castillo Member ID:[id number] Relation to Subscriber:Self Name:Jake Castillo Subscriber ID:[id number] Payer ID:[id number] Group ID:Not on file Type:Medicare Address: [address] INDEMNITY MEDICARE RAILROAD INDEMNITY MEDICARE RAILROAD [facility] INDEMNITY MEDICARE RAILROAD [employer] INDEMNITY MEDICARE RAILROAD Member Subscriber Plan / Payer ( fective 2012-Present) Name:Jake Castillo Member ID:[id number] Relation to Subscriber:Self Name:Jake Castillo Subscriber ID:[id number] Payer ID:[id number] Group ID:Not on file Type:Medicare Address: [place] [id number] [facility] INDEMNITY MEDICARE RAILROAD [facility] INDEMNITY MEDICARE RAILROAD [facility] INDEMNITY MEDICARE RAILROAD Care Teams Screwhead Polisher Relationship Specialty Start Date End Date Chay Little MD [address] [place] [address] [place] [address] PCP - General 05/01/17 Additional Source Comments The information contained in this document represents components of the legal health record. It is not the complete legal health record.[facility]
--- OUTSIDE RECORDS SUMMARY | 2025-04-08 12:43 | XMS_ITS | Encounter Summary ---
Author Organization [facility] Address [address] [place] [phone] Phone Care Team Providers Care Cyber Security Systems Engineer Name Role Phone Chay Little MD Primary Care Provider Encounter Details Date Type Department Care Team (Late st Contact Info) Description 12/15/2022 Procedure Pass [facility], Ct Scan - [address] [address] Social History Tobacco Use Types Packs/Day Years [...] 3:30 PM EDT Giuseppe Vieyra RN * [place]oman Suicide Severity Rating Scale (Screener/Recent Self-Report) Question [...] documented as of this encounter Care Teams Cyber Security Systems Engineer Relationship Specialty Start Date End Date Chay Little MD [address] [place] [address] [place] [address] PCP - General 05/01/17 documented as of this encounter Additional Source Comments The information contained in this document represents components of the legal health record. It is not the complete legal health record.[facility]
--- OUTSIDE RECORDS SUMMARY | 2025-04-08 12:43 | XMS_ITS | Patient Health Record ---
Author Organization Chay Little MD Address [address] [place], [place] [id number] Care Team Providers Care Armor Reconnaissance Specialist Name Role Phone Chay Little Primary Care Provider Allergies No Known Allergies Results Component Value Reference Range Notes UA ClnCatch+Micro w/rflx Cul t (Not yet reviewed by provider) Interpretation: Performing Lab:[address] [phone] Notes/Report: Urine, Clean Catch Color Urine Yellow Appearance Urine Clear PH 6.5 5.0-9.0 Glucose Urine UA Negative Negative mg/dL Urine Blood Negative Negative Specific [place] - Urine 1.015 1.005-1.025 Urine Protein 30 [...] ff Reviewed date:04/08/2025 12:34:15 PM Interpretation: Performing Lab:[facility], [address] [place] [phone] Notes/Report: White Blood Count 9.3 4.8-10.8 X10*3/uL [...] NRBC Abs Auto 0.000 0.0-0.012 X10*3/uL Comprehensive [place]. Panel Fa st Reviewed date:04/08/2025 12:42:07 PM Interpretation: Performing Lab:[facility], [address] [place] [phone] Notes/Report: Sodium 142 135-145 mmol/L Potassium 4.2 [...] PROFILE Reviewed date:04/08/2025 12:17:39 PM Interpretation: Performing Lab:[address] [phone] Notes/Report: Iron 109 45-160 mcg/dL Total Iron Binding Capacity 270 228-428 mcg/d L Percent Iron Saturation 40 15-50 % Unsaturated Iron Binding 161 Lipid Panel Reviewed date:04/08/2025 12:26:12 PM Interpretation: Performing Lab:[address] [phone] Notes/Report: Triglycerides 71 <150 mg/dL Desirable Triglyceride: [...] (Free>4and<10) Reviewed date:04/08/2025 12:17:19 PM Interpretation: Performing Lab:[address] [phone] Notes/Report: PSA,Total (Free>4and<10) 1.29 0.00-4.00 ng/mL A [...] Barrera Alinity i Chemiluminescent Microparticle Immunoassay (CMIA) Occult Blood, Stool, Guaiac Reviewed date:04/12/2024 02:37:45 PM Interpretation:Negative Performing Lab: Notes/Report: Negative Occult Blood, Stool, Guaiac Neg Basic Metabolic Panel Fastin g Reviewed date:01/20/2025 04:11:52 PM Interpretation: Performing Lab:[facility], [address] [place] [phone] Notes/Report: Sodium 139 135-145 mmol/L Potassium 4.0 3.3-5.1 mmol/L Chloride 107 96-108 mmol/L Carbon Dioxide 26 22-29 mmol/L Anion Gap 10 12-20 Blood Urea Nitrogen 13 9-16 mg/dL Creatinine 0.81 0.5-1.4 mg/dL Estimated Glomerular Filt Rate > 60 Chronic Kidney Disease: Estimated GFR < 60 mL/min/1.73m2 Severe Kidney Disease: Estimated GFR < 15 mL/min/1.73m2 Glucose Fasting 104 60-99 mg/dL A fasting glucose from 100-125 mg/dl is considered impaired (pre-diabetes). Calcium 9.0 8.4-10.2 mg/dL Basic Metabolic Panel Reviewed date:02/22/2025 03:39:08 PM Interpretation: Performing Lab:[address] [phone] Notes/Report: Sodium 141 135-145 mmol/L Potassium 4.1 3.3-5.1 mmol/L Chloride 107 96-108 mmol/L Carbon Dioxide 27 22-29 mmol/L Anion Gap 11 12-20 Blood Urea Nitrogen 15 9-16 mg/dL Creatinine 0.67 0.5-1.4 mg/dL Estimated Glomerular Filt Rate > 60 Chronic Kidney Disease: Estimated GFR < 60 mL/min/1.73m2 Severe Kidney Disease: Estimated GFR < 15 mL/min/1.73m2 Glucose Random 89 60-115 mg/dL Calcium 8.9 8.4-10.2 mg/dL Reason For Referral Reason SCREEN FOR COLON [...] TAKE 1 TABLET BY LITO ONCE DAILY Not-Taking Paxlovid (300/100) 20 x [...] ed pt was given the vaccine at [facility]. Influenza High Dose IM Intramuscular 04/09/2019 Administer ed pt was given the vaccine at [facility] in [place]. Influenza High Dose IM Intramuscular 03/21/2020 Administer [...] smoker, currently using no form of tobacco Problems Problem Type SNOMED Code ICD Code Onset Dates Problem Status W/U Status Risk Notes Problem 29537546 Atherosclerotic heart disease of [place] coronary artery without angina pectoris (I25.10) Active confirmed Problem 35359549 Prostatism (N40.0) Active confirmed Problem 118450336 Statin intoleran ce (Z78.9) Active confirmed Problem 780218071 Mixed hyperlipid emia (E78.2) Active confirmed Problem 62084793 Obstructive slee p apnea (adult) (pediatric) (G47.33) Active confirmed Problem 04895280 Essential hypert ension (I10) Active confirmed Problem 480254759 Chronic systolic congestive heart failure (I50.22) Active confirmed Problem 12047479 Iron deficiency anemia, unspecified iron deficiency anemia type (D50.9) Active confirmed Problem 542820031 History of myoca rdial infarction (I25.2) Active confirmed Problem 53141183 Hypercholesterol emia (E78.00) Active confirmed Problem 58948913 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) Active confirmed Problem 537241537 Status post willian nary artery stent placement (Z95.5) Active confirmed Vital Signs Blood pressure diastolic 54 mm Hg 10/08/2024 Height 72.5 in 10/08/2024 Blood pressure systolic 152 mm Hg 10/08/2024 Weight 235 lbs 10/08/2024 BMI 31.43 kg/m2 10/08/2024 Encounters Encounter Location Date Provider Diagnosis Chay Little MD [address] [place] [id number] 04/08/2025 Chay Little Blood tests for rout ine general physical examination Z00.00 ; Hypercholesterolemia E78.00 ; Essential hypertension I10 ; Prostatism N40.0 and Iron deficiency anemia, unspecified iron deficiency anemia type D50.9 Chay Little MD [address] [place] [address] [address] [place] [id number] 04/12/2024 Chay Little Status post coronary artery stent placement Z95.5 ; Annual physical exam Z00.00 ; Prostatism N40.0 ; Statin intolerance Z78.9 ; Atherosclerotic heart disease of [place] coronary artery without angina pectoris I25.10 ; Hypercholesterolemia E78.00 ; Essential hypertension I10 ; Chronic systolic congestive heart failure I50.22 ; Colon cancer screening Z12.11 and Depression screening Z13.31 Chay Little MD [address] [place] [address] [id number] 05/10/2024 Chay Little COVID-19 U07.1 Chay Little MD [address] [place] [address] [address] [place] [id number] 10/08/2024 Chay Little Bowel habit changes R19.4 and Hypercholesterolemia E78.00 Chay Little MD [address] [place] [address] [address] [place] [id number] 05/11/2024 Chay Little Assessments Encounter Date Diagnosis (ICD Code) Assessment Notes Treatment Notes Treatment Clinical Notes Section Notes 04/08/2025 [address] tests for rout ine general physical examination (ICD-10 - Z00.00) 04/12/2024 Status post coronary artery stent placement (ICD-10 - Z95.5) doing well after stents placed, followed by cardilogy 04/12/2024 Annual physical exam (ICD-10 - Z00.00) labs reviewed and discussed with patient 05/10/2024 COVID-19 (ICD-10 - U07.1) patient verbalized understanding of medication and directions for use 10/08/2024 Bowel habit changes (ICD-10 - R19.4) needs colonoscopy 04/08/2025 Hypercholesterolemia (ICD-10 - E78.00) 04/12/2024 Prostatism (ICD-10 - N40.0) doing well, will continue current regiment 10/08/2024 Hypercholesterolemia (ICD-10 - E78.00) not able to take statins and can't afford 04/08/2025 Essential hypertensi on (ICD-10 - I10) 04/12/2024 Statin intolerance (ICD-10 - Z78.9) has inability 04/08/2025 Prostatism (ICD-10 - N40.0) 04/12/2024 Atherosclerotic hear t disease of [place] coronary artery without angina pectoris (ICD-10 - I25.10) doing well 04/08/2025 Iron deficiency anem ia, unspecified iron [...] CHEST 2 VIEW PA & LAT 02/25/2022 UA ClnCatch+Micro w/rflx Cult 04/08/2025 Next Appt Details Provider Name:Chay mares, 04/15/2025 11:00:00 AM, [address] [facility], [address], [place], [place], [phone], Insurance Providers Payer Name Payer Address Payer Phone Subscriber Number Group Number Insured Name Patient Relationship to Insured Coverage Start Date Coverage End Date [employer] - [employer]ICARE [address] [address] [place] [address] [id number] PERNELL CASTILLO Self - patient is the insured [facility] [place] [address] [address] [place] [address] [phone] [id number] PERNELL CASTILLO Self - patient is the insured Medical (General) History Medical History History ICD Code colonoscopy 07/27/15 Dr. Yamil mulligan - repeat 07/28/19 (4 years)01/03/25 colonoscopy pending path Cyst of ear canal Q18.1
--- OUTSIDE RECORDS SUMMARY | 2025-04-08 12:43 | XMS_ITS | Encounter Summary ---
Author Organization [facility] Address [address] [place] [phone] Phone Care Team Providers Care Hosiery Mater Name Role Phone Chay Little MD Primary Care Provider Encounter Details Date Type Department Care Team (Late st Contact Info) Description 12/15/2022 Procedure Pass [facility], Ct Scan - [address] [address] Social History Tobacco Use Types Packs/Day Years [...] 3:30 PM EDT Giuseppe Vieyra RN * [place] Suicide Severity Rating Scale (Screener/Recent Self-Report) Question [...] documented as of this encounter Care Teams Hosiery Mater Relationship Specialty Start Date End Date Chay Little MD [address] [place] [address] [place] [address] PCP - General 05/01/17 documented as of this encounter Additional Source Comments The information contained in this document represents components of the legal health record. It is not the complete legal health record.[facility]
--- OUTSIDE RECORDS SUMMARY | 2025-04-08 12:43 | XMS_ITS | Encounter Summary ---
Author Organization [facility] Address [address] [place] [address] Phone Care Team Providers Care Medicinal Chemist Name Role Phone Chay Little MD Primary Care Provider Reason for Referral * Physical Therapy (Routine) - Closed Specialty Diagnoses / Procedures Referred By Alejandra long Referred To Contact Physical Therapy Diagnoses Encounter for rehabilitation System, Provider Not In, [facility] [id number] [place] [address] Phone: tel: Referral ID Status Reason Start Date Expiration Date Visits Re quested Visits Authorized [id number] Closed 12/29/2017 07/13/2018 99 99 Encounter Details Date Type Department Care Team (Latest Contact Info) Description 12/29/2017 Transcribe Orders [facility] [address] [place] [id number] Kevin Loomis PA [facility] Roula Cotter [address] [address] Encounter for rehabilitation (Primary Dx) Social History Tobacco Use Types Packs/Day Years Used Date Smoking Tobacco: Former Smokeless Tobacco: Never Sex and Gender Information Value Date Recorded Sex Assigned at Male 11/16/2021 11:35 AM EDT Legal Sex Male 10:06 PM EDT Gender Identity Male 11/16/2021 11:35 AM EDT Sexual Orientation Not on file documented as of this encounter Plan of Treatment Scheduled Referrals Name Type Priority Associated Diagnoses Orde r Schedule Ambulatory referral to [facility] Physical Therapy Outpatient Referral Routine Encounter for rehabilitation Ordered: 12/29/2017 documented as of this encounter Visit Diagnoses Diagnosis Encounter for rehabilitation- Primary documented in this encounter Additional Health Concerns Infection Onset Date Last Indicated Resolved Time CoV-Risk 12/15/2022 12/15/2022 12/26/2022 1:21 AM EDT CoV-Exposed Comment:Recent close contact documented in the COVID-19 PCR/PRO order 12/15/2022 12/15/2022 12/26/2022 1:21 AM E DT CoV-Risk 02/26/2024 02/26/2024 03/08/2024 1:23 AM EDT documented as of this encounter Care Teams Medicinal Chemist Relationship Specialty Start Date End Date Chay Little MD [address] [place] [address] [place] [address] PCP - General 05/01/17 documented as of this encounter Additional Source Comments The information contained in this document represents components of the legal health record. It is not the complete legal health record.[facility]
--- OUTSIDE RECORDS SUMMARY | 2025-04-08 12:44 | XMS_ITS | Encounter Summary ---
Author Organization [facility] Address [address] [place] [address] Phone Care Team Providers Care Money Market Clerk Name Role Phone Chay Little MD Primary Care Provider Reason for Referral * MRI/CAT Scan - Closed Specialty Diagnoses / Procedures Referred By Contcuco t Referred To Contact Radiology Diagnoses Dyspnea on exertion Procedures NC Myocardial Perfusion Pharmacologic Stress Multiple NC Myocardial Perfusion Exercise Multiple Wes Hobbs MD Phone: tel: fax: mailto: Referral ID Status Reason Start Date Expiration Date Visits Re quested Visits Authorized [id number] Closed 07/16/2017 07/16/2018 1 1 Encounter Details Date Type Department Care Team (Latest Contact Info) Description 08/11/2017 Ancillary Orders [facility] [address] [place] [address] 3rd Floor, [address] [place] [phone] Wes Hobbs MD [address] [facility], [address] [address] Dyspnea on exertion Social History Tobacco Use Types Packs/Day Years [...] this encounter Results * NC Myocardial Perfusion Pharmacologic Stress Multiple (08/11/2017 2:03 PM EST) Anatomical Region Laterality Modality Heart, Vascular Ultrasound Narrative 08/12/2017 4:36 PM EST Abnormal study There is moderate LV dilation and mild LV dysfunction with inferior hypokinesis. There is a medium-sized area of severe decreased uptake fixed involving the inferior mid and basal segments consistent with a prior inferior myocardial infarction. No evidence of significant ischemia. Study Quality Overall image quality is good. There are no artifacts present. NC Study Impression Left ventricular perfusion is abnormal. Interpretation of the study indicates that it is symptomatic of infarction. A prior study was conducted on 07/30/2016. This study is in agreement with the prior study. Abnormal study There is moderate LV dilation and mild LV dysfunction with inferior hypokinesis. There is a medium-sized area of severe decreased uptake fixed involving the inferior mid and basal segments consistent with a prior inferior myocardial infarction. No evidence of significant ischemia. Stress Test Result REGADENOSON Exercise Stress Test Report: Reason for termination: Protocol complete Summary: Resting ECG: SB HR 52 NSSTW with nonspecific T wave inversions in Lead 3 Functional capacity: Average Heart rate response to exercise: Blunted heart rate secondary to Beta Blockade Blood pressure response to exercise: Hypertensive response during exercise Chest pain:None Arrhythmias: Isolated PAC and PVC ST-T changes: Overall impression: Nondiagnostic stress test Conclusion: Pharmacologic stress test. Patient unable to complete test on TM due fatigue, blunted heart rate secondary to Beta blockade, and hypertensive response. The patient was infused with 0.4 mg of Regadenoson (Lexiscan) intravenously over 10 seconds followed immediately by the injection of the Tc99m Sestamibi. Patient tolerated Lexiscan infusion without complications. Test terminated due to completion of protocol. Summary: 1. EKG: No EKG changes suggestive of ischemia 2. Symptoms: No chest pain or symptoms concerning for angina 3. Exercise physiology: Not assessed due to pharmacologic study 4. Arrhythmia: None Conclusion: Nondiagnostic exercise stress test secondary to baseline abnormalities. Exercise stress test converted to pharmacologic stress test secondary to fatigue, blunted heart rate secondary to Beta Blockade, and hypertensive response to exercise. No ischemic EKG changes from baseline with pharmacologic protocol. Patient hemodynamically stable at completion of exam. Nuclear image results pending. EKG reviewed with Dr. Marcello Butterfield WAISTLINE JOINER LOCKSTITCH Nuclear Cardiology Measurements End systolic (mL): 101 TID: 1.09 End diastolic (mL): 195 Stress EF=48% Rest EF=45% Ejection Fraction: Mild (40-49%)Patient was injected Lt AC IV during stress with 12.0mCi Tc99m Sestamibi and with 12.2mCi Tc99m Sestamibi Lt AC at rest. Perfusion Scoring Resting Summed Score: 9 Percent Normal: 13.24% Severe count reduction in the following segments: basal inferior. Moderate count reduction in the following segments: basal inferoseptal and apex. Mild count reduction in the following segments: mid inferior and apical lateral. All other segments are normal. Perfusion Scoring Stress Summed Score: 12 Percent Normal: 17.65% Severe count reduction in the following segments: basal inferior. Moderate count reduction in the following segments: basal inferoseptal, apical anterior and apex. Mild count reduction in the following segments: mid inferoseptal, mid inferior and apical inferior. All other segments are normal. Wes Hobbs MD CV NM CARDIAC Final Result documented in this encounter Visit Diagnoses Diagnosis Dyspnea on exertion Other dyspnea and respiratory abnormality Dyspnea on exertion Other dyspnea and respiratory abnormality documented in this encounter Additional Health Concerns Infection Onset Date Last Indicated Resolved Time CoV-Risk 12/15/2022 12/15/2022 12/26/2022 1:21 AM EDT CoV-Exposed Comment:Recent close contact documented in the COVID-19 PCR/PRO order 12/15/2022 12/15/2022 12/26/2022 1:21 AM E DT CoV-Risk 02/26/2024 02/26/2024 03/08/2024 1:23 AM EDT documented as of this encounter Care Teams Money Market Clerk Relationship Specialty Start Date End Date Chay Little MD [address] [place] [address] [place] [address] PCP - General 05/01/17 documented as of this encounter Additional Source Comments The information contained in this document represents components of the legal health record. It is not the complete legal health record.[facility]
--- OUTSIDE RECORDS SUMMARY | 2025-04-08 12:44 | XMS_ITS | Clinical Summary ---
Author Organization [facility] [address] [facility] Address [address] [place] [address] Phone Care Team Providers Care Optical Glass Sawyer Name Role Phone Chay Little MD Primary Care Provider [phone] Allergies No known active allergies Medications amLODIPine [...] infarct, old [facility] on CPAP Colon polyps Surgical History Surgery Date Site/Laterality Comments THYROID [...] Health Maintenance Due Date Last Done Comments Depression Screening 07/14/2024 Cholesterol Screening (Lipid Panel) 10/11/2024 Hepatitis C Screening 10/11/2024 Social Influencers of Health Screening 10/11/2024 COVID-19 Vaccine ( season) 2025 04/27/2022, 11/10/2021, 04/27/2021, Additional history exists Influenza Vaccine (#1) 2025 , 04/27/2022, 03/23/2021, [...] Maintenance Results * COLONOSCOPY Anesthesia - MAC; [facility] [email or web address]] ENDOSCOPY (01/03/2025 9:36 AM EDT) Anatomical Region [...] office PRN. Narrative 01/03/2025 9:37 AM EDT [facility] GI Patient Name: Jake Castillo [...] retroflexion views. Procedure Code(s): --- Professional --- 39907, Colonoscopy, flexible; with removal of tumor(s), polyp(s), or other lesion(s) by snare technique Diagnosis Code(s): --- Professional --- Z86.010, Personal history of colonic polyps D12.6, Benign neoplasm of colon, unspecified CPT copyright 2020 [employer]. All rights reserved. The codes documented in this report are preliminary and upon tire man review may be revised to meet current compliance requirements. Saravanan Woodson MD 01/03/2025 9:37:49 AM This report has been signed electronically.Saravanan Woodson MD Number of Addenda: 0 Note Initiated On: 01/03/2025 9:16 AM Scope In: Scope Out: Endoscopy Department at [facility] - [address] [place] [phone] Procedure Note Saravanan Woodson MD - 01/03/2025 [facility] GI Patient Name: Jake Castillo Procedure Date: 01/03/2025 9:16 AM Date of : 1945 Age: 79 Room: ROOM 14 Gender: Male Note Status: Finalized Attending MD: Saravanan Woodson MD, Procedure Date No Time: 01/03/2025 Procedure: Colonoscopy Indications: High risk colon cancer surveillance: Personalhistory of colonic polyps Providers: Saravanan Woodosn MD Referring MD: Saravanan Woodson MD Medicines: [...] retroflexion views. Procedure Code(s): --- Professional --- 01650, Colonoscopy, flexible; with removal of tumor(s), polyp(s), or other lesion(s) by snare technique Diagnosis Code(s): --- Professional --- Z86.010, Personal history of colonic polyps D12.6, Benign neoplasm of colon, unspecified CPT copyright 2020 [employer]. All rights reserved. The codes documented in this report are preliminary and upon tire man reviewmay be revised to meet current compliance requirements. Saravanan Woodson MD 01/03/2025 9:37:49 AM This report has been signed electronically.Saravanan Woodson MD Number of Addenda: 0 Note Initiated On: 01/03/2025 9:16 AM Scope In: Scope Out: Endoscopy Department at [facility] - [address] [place] [phone] IMPRESSION: - One 4 mm polyp at [...] results. - Return to GI office PRN. Saravanan Woodson MD GI~PROCEDURE ORDERABLES Final Result * (ABNORMAL) Comprehensive metabolic panel (10/19/2024 3:59 PM EDT) Sodium 138 133 - 145 mmol/L LAB CHEMISTRY METHOD 10/19/2024 5:10 PM [facility] Potassium 4.0 3.5 - 5.5 mmol/L LAB CHEMISTRY METHOD 10/19/2024 5:10 PM [facility] Chloride 104 96 - 110 mmol/L LAB CHEMISTRY METHOD 10/19/2024 5:10 PM [facility] CO2 28 21 - 32 mmol/L LAB CHEMISTRY METHOD 10/19/2024 5:10 PM [facility] Anion Gap 6 3 - 11 LAB CHEMISTRY METHOD 10/19/2024 5:10 PM [facility] Glucose 139(H) 70 - 100 mg/dL LAB CHEMISTRY METHOD 10/19/2024 5:10 PM [facility] BUN 14 5 - 25 mg/dL LAB CHEMISTRY METHOD 10/19/2024 5:10 PM [facility] Creatinine 0.69(L) 0.70 - 1.30 mg/dL LAB CHEMISTRY METHOD 10/19/2024 5:10 PM [facility] eGFR 95 >=60 mL/min/1. 73m2 LAB CHEMISTRY METHOD 10/19/2024 5:10 PM [facility] Comment:Calculation based on the Chronic Kidney Disease Epidemiology Collaboration (CKD-EPI) equation refit without adjustment for race. BUN/Creatinine Ratio 20.3 LAB CHEMISTRY METHOD 10/19/2024 5:10 PM [facility] Calcium 8.8 8.5 - 10.5 mg/dL LAB CHEMISTRY METHOD 10/19/2024 5:10 PM EDT [facility] AST (SGOT) 19 10 - 42 unit/L LAB CHEMISTRY METHOD 10/19/2024 5:10 PM EDT [facility] ALT (SGPT) 29 10 - 60 unit/L LAB CHEMISTRY METHOD 10/19/2024 5:10 PM EDT [facility] Alkaline Phosphatase 65 42 - 121 unit/L LAB CHEMISTRY METHOD 10/19/2024 5:10 PM EDT [facility] Total Protein 6.4 6.0 - 8.0 g/dL LAB CHEMISTRY METHOD 10/19/2024 5:10 PM EDT [facility] Albumin 3.4 3.2 - 5.0 g/dL LAB CHEMISTRY METHOD 10/19/2024 5:10 PM EDT [facility] Total Bilirubin 0.5 0.0 - 1.4 mg/dL LAB CHEMISTRY METHOD 10/19/2024 5:10 PM EDT [facility] Blood Venous blood specimen / Unknown Venipuncture / Unknown 10/19/2024 3:59 PM EDT 10/19/2024 4:12 PM EDT us Saravanan Woodson MD LAB BLOOD ORDERABLES Final Re sult [facility] [address] [place] [address], from Last 3 Months or Most Recently Relevant to Health Maintenance Insurance [facility] [id number] MEDICARE Care Teams Optical Glass Sawyer Relationship Specialty Start Date End Date Chay Little MD [address] [place] [phone] PCP - General Internal Medicine 10/11/24
== END 2025-04-08 07:46 | disposition home or self-care (01) ==
LOC: HO.LNP 07:45
PROVIDERS: Visit Provider Internal Medicine
DX: Z00.00 Encounter for general adult medical examination without abnormal findings (principal); Z12.5 Encounter for screening for malignant neoplasm of prostate; E78.00 Pure hypercholesterolemia, unspecified; I10 Essential (primary) hypertension; N40.0 Benign prostatic hyperplasia without lower urinary tract symptoms; D50.9 Iron deficiency anemia, unspecified
CPT/HCPCS: 80053; 80061; 81001; 83540; 84153; 85025

== ENCOUNTER 2025-06-21 15:07 | Outpatient (AMB) | payer MEDICARE, OTHER, SELFPAY ==
--- OUTSIDE RECORDS SUMMARY | 2019-08-08 10:40 | XMS_ITS | Encounter Summary ---
Author Organization [facility] Address [address] [place] [address] Phone Care Team Providers Care Python Developer Name Role Phone Chay Little MD Primary Care Provider Encounter Details Date Type Department Care Team (Late st Contact Info) Description 08/08/2019 10:40 AM EST Hospital Encounter [facility] [address] [place] [phone] Shannon Fernandes, CQ DEVELOPER [address] [place] [address] [email or web address] Social History Tobacco Use Types Packs/Day Years Used Date Smoking Tobacco: Former Cigarettes Q uit: 1994 Smokeless Tobacco: Never Alcohol Use Standard Drinks/Week Comments Yes 0 (1 standard drink = 0.6 oz pur e alcohol) mariely in the afternoon Education Answer Date Recorded Are you interested in more education? Not on arjun e 11/08/2022 Are you concerned about learning? Not on file 11/08/2022 No 11/08/2022 No 11/08/2022 Digital Access Answer Date Recorded No 12/09/2022 No 12/09/2022 Reliable internet access at home? Not on file 12/09/2022 Device with a working camera? Not on file Intimate Partner Violence Answer Date R ecorded Are you denied basic needs s uch as food, clothing, or medical care? No 12/15/2022 In the past 12 months have y ou been in a relationship with a person who hurts, threatens, or tries to control you? No 12/15/2022 Are you denied basic needs s uch as food, clothing, or medical care? No 12/15/2022 In the past 12 months have y ou been in a relationship with a person who hurts, threatens, or tries to control you? No 12/15/2022 Sex and Gender Information Value Date Recorded Sex Assigned at Male 11/16/2021 11:35 AM EDT Legal Sex Male 10:06 PM EDT Gender Identity Male 11/16/2021 11:35 AM EDT Sexual Orientation Not on file documented as of this encounter Functional Status * Calculated C-SSRS Risk Score (Lifetime/Recent) Answer Date of Assessment Author No Risk Indicated 12/15/2022 3:30 PM EDT Giuseppe Vieyra RN * [place] Suicide Severity Rating Scale (Screener/Recent Self-Report) Question Answer Date of Assessment Author 1. Wish to be (Past 1 Month) No 023 3:30 PM EDT Giuseppe Vieyra RN 2. Non-Specific Active Suici gonsalo Thoughts (Past 1 Month) No 12/15/2022 3:30 PM EDT Lindsey Vieyra RN 3. Active Suicidal Ideation with any Methods (Not Plan) Without Intent to Act (Past 1 Month) No 12/15/2022 3:30 PM EDT Giuseppe Vieyra RN 4. Active Suicidal Ideation with Some Intent to Act, Without Specific Plan (Past 1 Month) No 12/15/2022 3:30 PM EDT Giuseppe Vieyra RN 5. Active Suicidal Ideation with Specific Plan and Intent (Past 1 Month) No 12/15/2022 3:30 PM EDT Giuseppe Vieyra RN 6. Suicidal Behavior (Lifetime) No 3 3:30 PM EDT Giuseppe Vieyra RN documented as of this encounter Plan of Treatment Not on file documented as of this encounter Procedures Procedure Name Priority Date/Time Associated Diagnosis Comments XR CHEST PA AND LATERAL 2 VIEWS Urgent/patient waiting 08/08/2019 10:47 AM EST Persistent cough documented in this encounter Results * XR CHEST PA AND LATERAL 2 VIEWS (08/08/2019 10:47 AM EST) Anatomical Region Laterality Modality Chest Radiographic Summer ging 08/08/2019 10:5 1 AM EST Impressions 08/08/2019 11:15 AM EST No acute infiltrate. Faint 8 mm nodular area right lung base may be nipple shadow and can be further evaluated with repeat frontal and shallow oblique views with nipple markers. Hyperinflation. Increase in heart size without dk cardiomegaly. POS - [id number] Edited by: Aubrie Snowden on 08/08/2019 10:58 AM Narrative 08/08/2019 11:15 AM EST PA and lateral views of the chest obtained. Comparison made to prior of November 22, 2009. The heart is upper normal in size and has increased in size since prior study. No signs of congestive failure. No infiltrates or effusions. There is hyperinflation which is similar to prior. There is a nodule overlying the anterior sixth rib which could be the nipple shadow. Repeat with nipple markers suggested. No free air or pneumothorax. No compression deformity. Procedure Note Felicita Diaz MD - 08/08/2019 PA and lateral views of the chest obtained. Comparison made to prior ofNovember 22, 2009. The heart is upper normal in size and has increased in sizesince prior study. No signs of congestive failure. No infiltrates oreffusions. There is hyperinflation which is similar to prior. There is anodule overlying the anterior sixth rib which could be the nipple shadow.Repeat with nipple markers suggested. No free air or pneumothorax. Nocompression deformity. IMPRESSION: No acute infiltrate. Faint 8 mm nodular area right lung base may be nippleshadow and can be further evaluated with repeat frontal and shallowoblique views with nipple markers. Hyperinflation. Increase in heart sizewithout dk cardiomegaly. POS - [id number] Edited by: Aubrie Snowden on 08/08/2019 10:58 AM Shannon Fernandes CQ DEVELOPER IMG XR CHEST Final R esult documented in this encounter Visit Diagnoses Not on filedocumented in this encounter Additional Health Concerns Infection Onset Date Last Indicated Resolved Time CoV-Risk 12/15/2022 12/15/2022 12/26/2022 1:21 AM EDT CoV-Exposed Comment:Recent close contact documented in the COVID-19 PCR/PRO order 12/15/2022 12/15/2022 12/26/2022 1:21 AM E DT CoV-Risk 02/26/2024 02/26/2024 03/08/2024 1:23 AM EDT Resp-Risk 06/13/2025 06/13/2025 documented as of this encounter Care Teams Python Developer Relationship Specialty Start Date End Date Chay Little MD [address] [place] [address] [place] [address] PCP - General 05/01/17 documented as of this encounter Additional Source Comments The information contained in this document represents components of the legal health record. It is not the complete legal health record.[facility]
--- OUTSIDE RECORDS SUMMARY | 2024-02-24 02:00 | XMS_ITS ---
Author Organization Chay Little MD Address [address] [place] [phone] Care Team Providers Care Emergency Communications Officer Name Role Phone Sidney Chay Primary Care Provider Results Component Value Reference Range Notes Complete Blood Count Auto Di ff Reviewed date:02/24/2024 12:54:03 PM Interpretation: Performing Lab:[facility], [address] [place] [phone] Notes/Report: White Blood Count 8.2 4.8-10.8 X10*3/uL Red Blood Count 3.91 4.60-5.80 X10*6/uL Hemoglobin 12.7 14.0-18.0 g/dl Hematocrit 37.2 42.0-52.0 % Mean Corpuscular Volume 95.1 80.0-98.0 fL Mean Corpuscular Hemoglobin 32.5 27.0-33.0 pg Mean Corpuscular HGB Conc 34.1 31.0-36.0 g/dl Red Cell Distribution Width 13.2 11.0-16.0 % Platelet Count 216 160-400 X10*3/uL Mean Platelet Volume 9.8 9.4-12.4 fL Neutrophils Percent Auto 69.4 45-73 % Imm Gran Pct Auto 0.2 0.0-0.4 % Lymphocytes Percent Auto 16.9 20-40 % Monocytes Percent Auto 9.7 2-11 % Eosinophils Percent Auto 3.2 0-4 % Basophils Percent Auto 0.6 0-2 % NRBC Pct Auto 0.0 0.0-0.2 /100WBC Neutrophils Absolute Auto 5.7 2.0-8.3 x10*3/u L Imm Gran Abs Auto 0.02 0.00-0.03 X10*3/uL Lymphocytes Absolute Auto 1.4 1.2-4.9 X10*3/u L Monocytes Absolute Auto 0.8 0.1-1.2 X10*3/uL Eosinophils Absolute Auto 0.3 0.0-0.4 X10*3/u L Basophils Absolute Auto 0.1 0.0-0.2 X10*3/uL NRBC Abs Auto 0.000 0.0-0.012 X10*3/uL Comprehensive [place]. Panel Fa st Reviewed date:02/24/2024 12:51:55 PM Interpretation: Performing Lab:[facility], [address] [place] [phone] Notes/Report: Sodium 140 135-145 mmol/L Potassium 4.1 3.3-5.1 mmol/L Chloride 106 96-108 mmol/L Carbon Dioxide 28 22-29 mmol/L Anion Gap 10 12-20 Blood Urea Nitrogen 14 9-16 mg/dL Creatinine 0.80 0.5-1.4 mg/dL Estimated Glomerular Filt Rate > 60 NOTE: For -Greek individuals, multiply the result by 1.210. Chronic Kidney Disease: Estimated GFR < 60 mL/min/1.73m2 Severe Kidney Disease: Estimated GFR < 15 mL/min/1.73m2 Glucose Fasting 97 60-99 mg/dL Calcium 8.7 8.4-10.2 mg/dL Bilirubin Total 0.8 0.0-1.0 mg/dL Aspartate Amino Transferase 22 5-37 U/L Alanine Aminotransferase 17 0-40 U/L Total Protein 6.6 6.5-8.0 g/dL Albumin Level 3.9 3.5-5.0 g/dL Alkaline Phosphatase 59 39-117 U/L IRON PROFILE Reviewed date:02/24/2024 12:49:15 PM Interpretation: Performing Lab:[facility], [address] [place] [phone] Notes/Report: Iron 73 45-160 mcg/dL Total Iron Binding Capacity 265 228-428 mcg/d L Percent Iron Saturation 28 15-50 % Unsaturated Iron Binding 192 Lipid Panel Reviewed date:02/24/2024 12:51:22 PM Interpretation: Performing Lab:[facility], [address] [place] [phone] Notes/Report: Triglycerides 68 <150 mg/dL Desirable Triglyceride: less than 150 mg/dL Borderline High Triglyceride 150-199 mg/dL High Triglyceride: 200-499 mg/dL Very High Triglyceride: greater than or equal to 5OO mg/dL Cholesterol 121 <200 mg/dL Desirable Cholesterol: less than 200 mg/dL Borderline High Cholesterol: 200-239 mg/dL High Cholesterol: greater than 239 mg/dL LDL Cholesterol Calculated 53 <100 mg/dL Desirable LDL: less than 100 mg/dL Near Optimal/Above Optimal LDL: 110-129 mg/dL Borderline High LDL: 130-159 mg/dL High LDL: 160-189 mg/dL Very High LDL: greater than or equal to 190 mg/dL HDL Cholesterol 55 >40 mg/dL Desirable HDL: greater than 40 mg/dL Note: This HDL assay may give artificially low results in patients with liver disease. PSA,Total (Free>4and<10) Reviewed date:02/24/2024 12:50:17 PM Interpretation: Performing Lab:[facility], [address] [place] [phone] Notes/Report: PSA,Total (Free>4and<10) 2.78 0.00-4.00 ng/mL A Free PSA was not performed: The percentage of Free PSA can be used to enhance the differentiation of prostate cancer from benign prostatic disease in subjects whose PSA levels are between 4.0 and 10.0 ng/mL. For subjects whose PSA levels are below 4.0 or above 10.0 ng/mL, the risk of prostate cancer is determined on the basis of the PSA alone. Therefore the % Free PSA is recommended only for those subjects whose PSA levels are between 4.0 and 10.0 ng/mL. PSA methodology: [employer] Chemiluminescent Microparticle Immunoassay (CMIA) UA ClnCatch+Micro w/rflx Cul t Reviewed date:02/24/2024 12:54:25 PM Interpretation: Performing Lab:[facility], [address] [place] [phone] Notes/Report: [id number] Urine, Clean Catch Color Urine Yellow Appearance Urine Clear PH 6.0 5.0-9.0 Glucose Urine UA Negative Negative mg/dL Urine Blood Negative Negative Specific [place] - Urine 1.015 1.005-1.025 Urine Protein Negative Neg-Trace mg/dL Urine Ketones Negative Negative mg/dL Nitrite Urine Negative Negative Leukocyte Esterase Urine Negative Negative RBC Urine 0-2 0-2 /HPF WBC Urine 0-5 0-5 /HPF Squamous Epithelial Cell Urine 0-2 0-2 /HPF Bacteria Urine None Seen None Seen Hyaline Casts Urine 0-2 0-2 /LPF REASON FOR VISIT yearly fasting labs Encounters Encounter Location Date Provider Diagnosis Chay Little MD [address] [place] [address] [place] [phone] 02/24/2024 Chay Little Blood tests for rout ine general physical examination Z00.00 ; Hypercholesterolemia E78.00 ; Essential hypertension I10 ; Chronic systolic congestive heart failure I50.22 and Iron deficiency anemia, unspecified iron deficiency anemia type D50.9 Assessments Encounter Date Diagnosis (ICD Code) Assessment Notes Treatment Notes Treatment Clinical Notes Section Notes 02/24/2024 [address] tests [address] rout ine general physical examination (ICD-10 - Z00.00) 02/24/2024 Hypercholesterolemia (ICD-10 - E78.00) 02/24/2024 Essential hypertensi on (ICD-10 - I10) 02/24/2024 Chronic systolic congestive heart failure (ICD-10 - I50.22) 02/24/2024 Iron deficiency anem ia, unspecified iron deficiency anemia type (ICD-10 - D50.9) Plan Of Treatment Next Appt Details Provider Name:Chay mares, 10/17/2025 10:00:00 AM, [address] [place] [address], [address] [place] [address], [phone], Provider Name:Chay mares, 04/11/2026 07:15:00 AM, [address] [place] [address], [address], [phone], Provider Name:Chay Dodson Sergey ier, 04/18/2026 10:30:00 AM, [address], [address], [place], [place], [phone], Progress Notes * PERNELL CASTILLODOB:1945 (79 yo M)Acc No.[id number]:02/24/2024 Progress Note Patient: PERNELL DORMAN Provider: Reji Little MD :1945 A ge:78 Y S ex:Male Date:02/24/2024 Address:[address] [place], [place] [phone] Subjective: * Chief Complaints: * 1 . Yearly fasting labs. * Medical History: Objective: * Vitals: Assessment: * Assessment: 1. B lood tests for routine general physical examination - Z00.00 (Primary) 2 .?Hypercholesterolemia - E78.00 3 . E ssential hypertension - I10 4 . C hronic systolic congestive heart failure - I50.22 5 . I antoine deficiency anemia, unspecified iron deficiency anemia type - D50.9 Plan: * Treatment: 2. H ypercholesterolemia L AB: Complete Blood Count Auto Diff (Collection Date & Time - 02/24/2024 07:00 AM) L AB: Comprehensive [place]. Panel Fast (Collection Date & Time - 02/24/2024 07:00 AM) L AB: IRON PROFILE (Collection Date & Time - 02/24/2024 07:00 AM) L AB: Lipid Panel (Collection Date & Time - 02/24/2024 07:00 AM) L AB: PSA,Total (Free>4and<10) (Collection Date & Time - 02/24/2024 07:00 AM) L AB: UA ClnCatch+Micro w/rflx Cult (Collection Date & Time - 02/24/2024 07:00 AM) 3. E ssential hypertension L AB: Complete Blood Count Auto Diff (Collection Date & Time - 02/24/2024 07:00 AM) L AB: Comprehensive [place]. Panel Fast (Collection Date & Time - 02/24/2024 07:00 AM) L AB: IRON PROFILE (Collection Date & Time - 02/24/2024 07:00 AM) L AB: Lipid Panel (Collection Date & Time - 02/24/2024 07:00 AM) L AB: PSA,Total (Free>4and<10) (Collection Date & Time - 02/24/2024 07:00 AM) L AB: UA ClnCatch+Micro w/rflx Cult (Collection Date & Time - 02/24/2024 07:00 AM) 4. C hronic systolic congestive heart failure L AB: Complete Blood Count Auto Diff (Collection Date & Time - 02/24/2024 07:00 AM) L AB: Comprehensive [place]. Panel Fast (Collection Date & Time - 02/24/2024 07:00 AM) L AB: IRON PROFILE (Collection Date & Time - 02/24/2024 07:00 AM) L AB: Lipid Panel (Collection Date & Time - 02/24/2024 07:00 AM) L AB: PSA,Total (Free>4and<10) (Collection Date & Time - 02/24/2024 07:00 AM) L AB: UA ClnCatch+Micro w/rflx Cult (Collection Date & Time - 02/24/2024 07:00 AM) 5. I antoine deficiency anemia, unspecified iron deficiency anemia type L AB: Complete Blood Count Auto Diff (Collection Date & Time - 02/24/2024 07:00 AM) L AB: Comprehensive [place]. Panel Fast (Collection Date & Time - 02/24/2024 07:00 AM) L AB: IRON PROFILE (Collection Date & Time - 02/24/2024 07:00 AM) L AB: Lipid Panel (Collection Date & Time - 02/24/2024 07:00 AM) L AB: PSA,Total (Free>4and<10) (Collection Date & Time - 02/24/2024 07:00 AM) L AB: UA ClnCatch+Micro w/rflx Cult (Collection Date & Time - 02/24/2024 07:00 AM) * Procedure Codes: 3 6415 VENIPUNCT, ROUTINE* * * The named appointment provid er may or may not be the originator of this progress note, and it is not deemed complete until electronically signed by the appointment provider. Sign off status: Pending * Provider: Reji Little MD Date: 0 02/24/2024 Generated for Nolvia rosado/Monse/Arleth on: 1 08/22/2024 09:28 PM EST
--- OUTSIDE RECORDS SUMMARY | 2024-04-12 08:45 | XMS_ITS ---
Author Organization Chay Little MD Address [address] [place] [phone] Care Team Providers Care Temper [employer] Roller Name Role Phone Chay Little Primary Care Provider Allergies No Known Allergies Results Component Value Reference Range Notes Occult Blood, Stool, Guaiac Reviewed date:04/12/2024 02:37:45 PM Interpretation:Negative Performing Lab: Notes/Report: Negative Occult Blood, Stool, Guaiac Neg REASON FOR VISIT annual visit, went to Urgent Care 02-25-25 still c/o productive cough, stuffy nose congestion, Tested negative x 2 for Covid Medications Medication SIG (Take, Route, Frequency, Duration) Notes Start Date End Date Status Spironolactone 25 MG 0.5 tablet Orally t wice a day Active Carvedilol 3.125 MG 1 tablet with food Orally BID Active Finasteride 5 MG 1 tablet Orally Once a day Active Tamsulosin HCl 0.4 MG TAKE 1 CAPSULE BY MOUTH TWICE DAILY Active Furosemide 40 MG TAKE 1 TABLET BY LITO ONCE DAILY Active Ibuprofen 800 MG 1 tablet with food o r milk Orally Three times a day for 10 days 04/22/2017 Not-Taking amLODIPine Besylate 10 MG 1 tablet Orall y Once a day Active Tessalon Perles 100 MG 2 capsule as need ed Orally Three times a day 01/07/2019 Not-Taking Irbesartan 300 MG 1 tablet Orally Once a day Active Repatha 140 MG/ML 1 mL Subcutaneous fo r 30 day(s) Active Co Q 10 10 MG as directed Orally Active Aspir-Low 81 MG 1 tablet Orally Once a day for 30 day(s) Active Social History Tobacco Use: Social History Observation Description Date Details (start date - stop date) Former Smoker NA - NA Tobacco Use/Smoking Question Answer Notes Patient is a former smoker How long has it been since y ou last smoked? > 10 years Additional Findings: Tobacco Non-User Fo rmer smoker, currently using no form of tobacco Alcohol Screen Question Answer Notes Did you have a drink contain ing alcohol in the past year? Yes How often did you have a dri nk containing alcohol in the past year? 4 or more times a week (4 points) How many drinks did you have on a typical day when you were drinking in the past year? 1 or 2 drinks (0 point) How often did you have 6 or more drinks on one occasion in the past year? Never (0 point) Points 4 Interpretation Positive Problems Problem Type SNOMED Code ICD Code Onset Dates Problem Status W/U Status Risk Notes Problem [id number] Status post coronary artery stent placement (Z95.5) Active confirmed Vital Signs Blood pressure systolic 138 mm Hg 04/12/20 24 Blood pressure diastolic 60 mm Hg 024 Height 72.5 in 04/12/2024 Weight 236 lbs 04/12/2024 BMI 31.56 kg/m2 04/12/2024 weight is up 11pounds since 05-27-23 Encounters Encounter Location Date Provider Diagnosis Chay Little MD [address] [place] [address] [place] [phone] 04/12/2024 Chay Little Status post coronary artery stent placement Z95.5 ; Annual physical exam Z00.00 ; Prostatism N40.0 ; Statin intolerance Z78.9 ; Atherosclerotic heart disease of [place] coronary artery without angina pectoris I25.10 ; Hypercholesterolemia E78.00 ; Essential hypertension I10 ; Chronic systolic congestive heart failure I50.22 ; Colon cancer screening Z12.11 and Depression screening Z13.31 Assessments Encounter Date Diagnosis (ICD Code) Assessment Notes Treatment Notes Treatment Clinical Notes Section Notes 04/12/2024 Status post coronary artery stent placement (ICD-10 - Z95.5) doing well after stents placed, followed by cardilogy 04/12/2024 Annual physical exam (ICD-10 - Z00.00) labs reviewed and discussed with patient 04/12/2024 Prostatism (ICD-10 - N40.0) doing well, will continue current regiment 04/12/2024 Statin intolerance (ICD-10 - Z78.9) has inability 04/12/2024 Atherosclerotic hear t disease of [place] coronary artery without angina pectoris (ICD-10 - I25.10) doing well 04/12/2024 Hypercholesterolemia (ICD-10 - E78.00) stable, is at goal, will continue current regiment 04/12/2024 Essential hypertensi on (ICD-10 - I10) doing well, is at goal, will continue current regiment 04/12/2024 Chronic systolic congestive heart failure (ICD-10 - I50.22) stable, doing well, will continue curent regiment 04/12/2024 Colon cancer screeni ng (ICD-10 - Z12.11) guaiac negative 04/12/2024 Depression screening (ICD-10 - Z13.31) negative screen Plan Of Treatment Medication Medication Name Sig Start Date Stop Date Notes Spironolactone 25 MG 0.5 tablet Orally twice a day Carvedilol 3.125 MG 1 tablet with food Orally BID Finasteride 5 MG 1 tablet Orally Once a day Tamsulosin HCl 0.4 MG TAKE 1 CAPSULE BY MOUTH TWICE DAILY Furosemide 40 MG TAKE 1 TABLET BY LITO TH ONCE DAILY amLODIPine Besylate 10 MG 1 tablet Orally Once a day Irbesartan 300 MG 1 tablet Orally Once a day Treatment Notes Assessment Notes Status post coronary artery stent placem ent doing well after stents placed, followed by cardilogy Annual physical exam labs reviewed and d iscussed with patient Prostatism doing well, will con tinue current regiment Statin intolerance has inability Atherosclerotic heart diseas e of [place] coronary artery without angina pectoris doing well Hypercholesterolemia stable, is at goal, will continue current regiment Essential hypertension doing well, is at goal, will continue current regiment Chronic systolic congestive heart failur e stable, doing well, will continue curent regiment Colon cancer screening guaiac negative Depression screening negative screen Next Appt Details Follow Up: 6 Months, Reason: Provider Name:Chay Rincon umeshr, 10/17/2025 10:00:00 AM, [address], [address], [place], [phone], Provider Name:Chay Rincon umeshr, 04/11/2026 07:15:00 AM, [address], [address], [place], [place], [phone], Provider Name:Chay Rincon umeshr, 04/18/2026 10:30:00 AM, [address], [address], [place], [place], [phone], Progress Notes * PERNELL CASTILLODOB:1945 (78 yo M)Acc No.[id number]:04/12/2024 Progress Notes Patient: PERNELL DORMAN Provider: Reji Little MD :1945 A ge:78 Y S ex:Male Date:04/12/2024 Address:[address] [place], [place] [phone] Subjective: * Chief Complaints: * A nnual visitwent to Urgent Care 02-25-25 still c/o productive cough, stuffy nose congestion Tested negative x 2 for Covid * HPI: D epression Screening: PHQ-9 L ittle interest or pleasure in doing things N ot at all, F eeling down, depressed, or hopeless N ot at all, T rouble falling or staying asleep, or sleeping too much N ot at all, F eeling tired or having little energy N ot at all, P oor appetite or overeating N ot at all, F eeling bad about yourself or that you are a failure, or have let yourself or your family down N ot at all, T rouble concentrating on things, such as reading the newspaper or watching television N ot at all, M oving or speaking so slowly that other people could have noticed; or the opposite, being so fidgety or restless that you have been moving around a lot more than usual N ot at all, T houghts that you would be better off or of hurting yourself in some way N ot at all, T otal Score 0 . I nterpretation and Intervention D epression Screening Findings N egative, F ollow-Up for Depression : review of PHQ-9 found negative result, no follow-up needed. C ommunication Needs: Communication Needs D oes the patient have a hearing impairment Y es, I f yes, what is the hearing impairment? H deysi of hearing, Hearing Aids, D oes the patient have a vision impairment? Y es, I f yes, what is the vision impairment? G lasses, D oes the patient have a cognition impairment? N o. S MARIA VICTORIA Questions: SDOH Questions I n the past year have you been worried about losing housing? N o, I n the past year have you or any family members you live with been unable to get any of the following when it was really needed? Check all that apply: N one. F all Risk: History H ave you had any falls with injury in the past year? N o, H ave you had two or more falls in the past year? N o. S ymptom(s): patient is a 78 yo male here for annual visit with review of recent labs and follow up of chronic issues, had 2 stents placed december. * ROS: G eneral/Constitutional: Patient denies f atigue , headache. C hange in appetite?denies. C hills d enies. F ever d enies. O phthalmologic: Blurred vision d enies. D ischarge d enies. P ain d enies. E NT: Patient denies d ecreased sense of smell , any loss of taste , sore throat. D ecreased hearing d enies. S ore throat d enies. S wollen glands d enies. E ndocrine: Cold intolerance d enies. E xcessive thirst d enies. H eat intolerance d enies. W eight loss d enies. R espiratory: Cough d enies. S hortness of breath at rest d enies. S hortness of breath with exertion d enies. W heezing d enies. C ardiovascular: Chest pain at rest d enies. C hest pain with exertion?denies. I rregular heartbeat d enies. S hortness of breath d enies. ? G astrointestinal: Abdominal pain d enies. C hange in bowel habits d enies. D iarrhea d enies. N ausea d enies. R ectal bleeding d enies. V omiting d enies . G enitourinary: Blood in urine d enies. D ifficulty urinating d enies. F requent urination d enies. M usculoskeletal: Patient denies m uscle aches. P ainful joints d enies. W eakness d enies. P eripheral Vascular: Patient denies r ed and blue toes. S kin: Dry skin d enies. I tching d enies. D enies?Mole(s), changes in moles, new moles or any lesions of concern. D enies P hotosensitivity. R tavia d enies. N eurologic: Dizziness d enies. F ainting d enies. H eadache?denies. * Medical History: * Surgical History: * Hospitalization/Major Diagno stic Procedure: * Family History: F ather: 52 yrs. M other: 83 yrs. 1 brother(s) , 2 sister(s) . 1 son(s) , 1 daughter(s) . . Father-[place] Mother Old age, Denies mental health/substance abuse family history, Denies mental health/substance abuse family history, Denies mental health/substance abuse family history, No pertinent family medical history, Denies mental health/substance abuse family history, Denies mental health/substance abuse family history. * Social History: T obacco Use: T obacco Use/Smoking P atient is a f ormer smoker, H ow long has it been since you last smoked? > 10 years, A dditional Findings: Tobacco Non-User F ormer smoker, currently using no form of tobacco. D rugs/Alcohol: A lcohol Screen D id you have a drink containing alcohol in the past year? Y es, H ow often did you have a drink containing alcohol in the past year? 4 or more times a week (4 points), H ow many drinks did you have on a typical day when you were drinking in the past year? 1 or 2 drinks (0 point), H ow often did you have 6 or more drinks on one occasion in the past year? N ever (0 point), P oints 4 , I nterpretation P ositive. M iscellaneous: n o Caffeine. Children: yes. no Exercise. Home smoke detector use: yes. Housing: owning. Living with: spouse. Marital status: . Pets: none. no Travel outside of the [place]. * Medications: T akingRepatha 140 MG/ML Solution Prefilled Syringe 1 mL Subcutaneous Finasteride 5 MG Tablet 1 tablet Orally Once a dayCo Q 10 10 MG Capsule as directed Orally Aspir- Low 81 MG Tablet Delayed Release 1 tablet Orally Once a dayTamsulosin HCl 0.4 MG Capsule TAKE 1 CAPSULE BY MOUTH TWICE DAILY Furosemide 40 MG Tablet TAKE 1 TABLET BY MOUTH ONCE DAILY amLODIPine Besylate 10 MG Tablet 1 tablet Orally Once a dayIrbesartan 300 MG Tablet 1 tablet Orally Once a daySpironolactone 25 MG Tablet 0.5 tablet Orally twice a dayCarvedilol 3.125 MG Tablet 1 tablet with food Orally BIDTaking Repatha 140 MG/ML Solution Prefilled Syringe 1 mL Subcutaneous Taking Finasteride 5 MG Tablet 1 tablet Orally Once a dayTaking Co Q 10 10 MG Capsule as directed Orally Taking Aspir-Low 81 MG Tablet Delayed Release 1 tablet Orally Once a dayTaking Tamsulosin HCl 0.4 MG Capsule TAKE 1 CAPSULE BY MOUTH TWICE DAILY Taking Furosemide 40 MG Tablet TAKE 1 TABLET BY MOUTH ONCE DAILY Taking amLODIPine Besylate 10 MG Tablet 1 tablet Orally Once a dayTaking Irbesartan 300 MG Tablet 1 tablet Orally Once a dayTaking Spironolactone 25 MG Tablet 0.5 tablet Orally twice a dayTaking Carvedilol 3.125 MG Tablet 1 tablet with food Orally BIDNot-Taking/PRNIbuprofen 800 MG Tablet 1 tablet with food or milk Orally Three times a dayTessalon Perles 100 MG Capsule 2 capsule as needed Orally Three times a dayNot-Taking/PRN Ibuprofen 800 MG Tablet 1 tablet with food or milk Orally Three times a dayNot-Taking/PRN Tessalon Perles 100 MG Capsule 2 capsule as needed Orally Three times a dayDiscontinuedPaxlovid (300/100) 20 x 150 MG & 10 x 100MG Tablet Therapy Pack as directed Orally 3 pills twice a dayMedication List reviewed and reconciled with the patientDiscontinued Paxlovid (300/100) 20 x 150 MG & 10 x 100MG Tablet Therapy Pack as directed Orally 3 pills twice a dayMedication List reviewed and reconciled with the patient * Allergies: N .K.D.A.yes[Allergies Verified] Objective: * Vitals: H t: 72.5, Wt:236, BMI:31.56, BP:138/60 weight is up 11pounds since 05-27-23. * P ast Orders: L ab:IRON PROFILE (Order Date - 02/24/2024) (Collection Date - 02/24/2024) Value Reference Range Iron 73 45-160 - mcg/dL Total Iron Binding Capacity 265 228-428 - mc g/dL Percent Iron Saturation 28 15-50 - % Unsaturated Iron Binding 192 - ug/dL L ab:Comprehensive [place]. Panel Fast (Order Date - 02/24/2024) (Collection Date - 02/24/2024) Value Reference Range Sodium 140 135-145 - mmol/L Bilirubin Total 0.8 0.0-1.0 - mg/dL Aspartate Amino Transferase 22 5-37 - U/L Alanine Aminotransferase 17 0-40 - U/L Total Protein 6.6 6.5-8.0 - g/dL Albumin Level 3.9 3.5-5.0 - g/dL Alkaline Phosphatase 59 39-117 - U/L Potassium 4.1 3.3-5.1 - mmol/L Chloride 106 96-108 - mmol/L Carbon Dioxide 28 22-29 - mmol/L Anion Gap 10 L 12-20 - Blood Urea Nitrogen 14 9-16 - mg/dL Creatinine 0.80 0.5-1.4 - mg/dL Estimated Glomerular Filt Rate > 60 - Glucose Fasting 97 60-99 - mg/dL Calcium 8.7 8.4-10.2 - mg/dL L ab:Complete Blood Count Auto Diff (Order Date - 02/24/2024) (Collection Date - 02/24/2024) Value Reference Range White Blood Count 8.2 4.8-10.8 - X10*3/uL Red Blood Count 3.91 L 4.60-5.80 - X10*6/uL Hemoglobin 12.7 L 14.0-18.0 - g/dl Hematocrit 37.2 L 42.0-52.0 - % Mean Corpuscular Volume 95.1 80.0-98.0 - fL Mean Corpuscular Hemoglobin 32.5 27.0-33.0 - pg Mean Corpuscular HGB Conc 34.1 31.0-36.0 - g/ dl Red Cell Distribution Width 13.2 11.0-16.0 - % Platelet Count 216 160-400 - X10*3/uL Mean Platelet Volume 9.8 9.4-12.4 - fL Neutrophils Percent Auto 69.4 45-73 - % Imm Gran Pct Auto 0.2 0.0-0.4 - % Lymphocytes Percent Auto 16.9 L 20-40 - % Monocytes Percent Auto 9.7 2-11 - % Eosinophils Percent Auto 3.2 0-4 - % Basophils Percent Auto 0.6 0-2 - % NRBC Pct Auto 0.0 0.0-0.2 - /100WBC Neutrophils Absolute Auto 5.7 2.0-8.3 - x10* 3/uL Imm Gran Abs Auto 0.02 0.00-0.03 - X10*3/uL Lymphocytes Absolute Auto 1.4 1.2-4.9 - X10* 3/uL Monocytes Absolute Auto 0.8 0.1-1.2 - X10*3/ uL Eosinophils Absolute Auto 0.3 0.0-0.4 - X10* 3/uL Basophils Absolute Auto 0.1 0.0-0.2 - X10*3/ uL NRBC Abs Auto 0.000 0.0-0.012 - X10*3/uL L ab:UA ClnCatch+Micro w/rflx Cult (Order Date - 02/24/2024) (Collection Date - 02/24/2024) Value Reference Range Color Urine Yellow - Appearance Urine Clear - PH 6.0 5.0-9.0 - Glucose Urine UA Negative Negative - mg/dL Urine Blood Negative Negative - Specific [place] - Urine 1.015 1.005-1.025 - Urine Protein Negative Neg-Trace - mg/dL Urine Ketones Negative Negative - mg/dL Nitrite Urine Negative Negative - Leukocyte Esterase Urine Negative Negative - RBC Urine 0-2 0-2 - /HPF WBC Urine 0-5 0-5 - /HPF Squamous Epithelial Cell Urine 0-2 0-2 - /HP F Bacteria Urine None Seen None Seen - Hyaline Casts Urine 0-2 0-2 - /LPF L ab:PSA,Total (Free>4and<10) (Order Date - 02/24/2024) (Collection Date - 02/24/2024) Value Reference Range PSA,Total (Free>4and<10) 2.78 0.00-4.00 - ng/ mL L ab:Lipid Panel (Order Date - 02/24/2024) (Collection Date - 02/24/2024) Value Reference Range Triglycerides 68 <150 - mg/dL Cholesterol 121 <200 - mg/dL LDL Cholesterol Calculated 53 <100 - mg/dL HDL Cholesterol 55 >40 - mg/dL * Examination: G eneral Examination: GENERAL APPEARANCE: w ell developed, well nourished, in no acute distress. HEAD: n ormocephalic, atraumatic. EYES: p upils equal, round, reactive to light and accommodation, sclera non-icteric. EARS: n ormal. ORAL CAVITY: m ucosa moist. THROAT: c lear. NECK/THYROID: n lexx supple, full range of motion, no cervical lymphadenopathy, no bruits. SKIN: w arm and dry, no suspicious lesions. HEART: r egular rate and rhythm, S1, S2 normal, no murmurs.? LUNGS: c lear to auscultation bilaterally. ABDOMEN: s oft, nontender, nondistended, bowel sounds present, normal, no organomegaly , no masses palpable. RECTAL EXAM: n ormal tone, no external hemorrhoids, no masses palpable, prostate normal, stool guaiac negative. MALE GENITOURINARY: t george descended bilaterally, no testicular mass. EXTREMITIES: n o clubbing, cyanosis, or edema. NEUROLOGIC: n onfocal, motor strength normal upper and lower extremities, sensory exam intact. Assessment: * Assessment: 1. A nnual physical exam - Z00.00 (Primary) 2 . S tatus post coronary artery stent placement - Z95.5 3 . P rostatism - N40.0 4 . S tatin intolerance - Z78.9 5 . A therosclerotic heart disease of [place] coronary artery without angina pectoris - I25.10 6 . H ypercholesterolemia - E78.00 7 . E ssential hypertension - I10 8 . C hronic systolic congestive heart failure - I50.22 9 . C olon cancer screening - Z12.11 1 0. D epression screening - Z13.31 Plan: * Treatment: 2. S tatus post coronary artery stent placement Notes: doing well after stents placed, followed by cardilogy 3. P rostatism Continue Finasteride Tablet, 5 MG, 1 tablet, Orally, Once a day; C ontinue Tamsulosin HCl Capsule, 0.4 MG, TAKE 1 CAPSULE BY MOUTH TWICE DAILY. Notes: doing well, will continue current regiment 4. S tatin intolerance Notes: has inability 5. A therosclerotic heart disease of [place] coronary artery without angina pectoris Notes: doing well 6. H ypercholesterolemia Notes: stable, is at goal, will continue current regiment 7. E ssential hypertension Continue amLODIPine Besylate Tablet, 10 MG, 1 tablet, Orally, Once a day; C ontinue Irbesartan Tablet, 300 MG, 1 tablet, Orally, Once a day; C ontinue Spironolactone Tablet, 25 MG, 0.5 tablet, Orally, twice a day; C ontinue Carvedilol Tablet, 3.125 MG, 1 tablet with food, Orally, BID.? Notes: doing well, is at goal, will continue current regiment 8. C hronic systolic congestive heart failure Continue Furosemide Tablet, 40 MG, TAKE 1 TABLET BY MOUTH ONCE DAILY. Notes: stable, doing well, will continue curent regiment 9. C olon cancer screening L AB: Occult Blood, Stool, Guaiac N egative Value Reference Range O ccult Blood, Stool, Guaiac Neg Notes: guaiac negative??10.?Depression screening? Notes: negative screen?? * Procedure Codes: 8 2270 TEST FOR BLOOD, FECES * Preventive Medicine: Counseling: C are goal follow-up plan: C ounseling for abnormal BMI provided?Yes, Mario Alberto moura Normal BMI Follow-up G iving encouragement to exercise. CHF Care Plan: P atient Lifestyle Goals R elieve symptoms and improve quality of life. T reatment Goals W eigh yourself every day to see if you are retaining fluid. Call office if + or - 5lbs from previous day. B arriers N o Specific barriers. S elf-Managment Goals M onitor your symptoms daily. * Follow Up: 6 Months * * Sign off status: Completed true * Provider: Reji Little MD Date: 0 04/12/2024 Generated for Nolvia rosado/Monse/Arleth on: 1 08/22/2024 09:29 PM EST History and Physical Notes * HPI (History of Present Illness) Category Sub-Category Detail Notes Category Not es Symptom(s) patient is a 78 yo male here for annual visit with review of recent labs and follow up of chronic issues, had 2 stents placed december Depression Screening PHQ-9 Little inte rest or pleasure in doing things: Not at all Feeling down, depressed, or hopeless: No t at all Trouble falling or staying asleep, or sl eeping too much: Not at all Feeling tired or having little energy: N ot at all Poor appetite or overeating: Not at all Feeling bad about yourself o r that you are a failure, or have let yourself or your family down: Not at all Trouble concentrating on thi ngs, such as reading the newspaper or watching television: Not at all Moving or speaking so slowly that other people could have noticed; or the opposite, being so fidgety or restless that you have been moving around a lot more than usual: Not at all Thoughts that you would be b baltazar off or of hurting yourself in some way: Not at all Total Score: 0 Interpretation and Intervention Depression Juan velásquez Findings: Negative Follow-Up for Depression: : review of PH Q-9 found negative result, no follow-up needed SDOH Questions SDOH Questions In the past year have you been worried about losing housing?: No In the past year have you or any family members you live with been unable to get any of the following when it was really needed? Check all that apply:: None Fall Risk History Have you had any falls with injury i n the past year?: No Have you had two or more falls in the year?: No Communication Needs Communication Needs Does the patient have a hearing impairment: Yes If yes, what is the hearing impairment?: Hard of hearing, Hearing Aids Does the patient have a vision impairmen t?: Yes If yes, what is the vision impairment?: Glasses Does the patient have a cognition impair ment?: No Examination Category Sub-Category Detail Notes Category Not es General Examination GENERAL APPEARANCE: well dev eloped, well nourished, in no acute distress HEAD: normocephalic, atrau matic EYES: pupils equal, round, reactive to light and accommodation, sclera non-icteric EARS: normal THROAT: clear NECK/THYROID: neck supple, full ra nge of motion, no cervical lymphadenopathy, no bruits HEART: regular rate and rhy thm, S1, S2 normal, no murmurs LUNGS: clear to auscultatio n bilaterally ABDOMEN: soft, nontender, non distended, bowel sounds present, normal, no organomegaly , no masses palpable NEUROLOGIC: nonfocal, motor stre ngth normal upper and lower extremities, sensory exam intact SKIN: warm and dry, no reina picious lesions EXTREMITIES: no clubbing, cyanosi s, or edema MALE GENITOURINARY: testes descended yoanna aterally, no testicular mass RECTAL EXAM: normal tone, no exte rnal hemorrhoids, no masses palpable, prostate normal, stool guaiac negative ORAL CAVITY: mucosa moist
--- OUTSIDE RECORDS SUMMARY | 2024-05-10 09:15 | XMS_ITS ---
Author Organization Chay Little MD Address [address] [place] [phone] Care Team Providers Care Supervisor Pumping Station Name Role Phone Chay Little Primary Care Provider Allergies No Known Allergies REASON FOR VISIT COVID POSITVE tested today, c/o sore throat cough headache muscle pain, runny nose congestion nauseau x 1 day, Audio [phone] Medications Medication SIG (Take, Route, Frequency, Duration) Notes Start Date End Date Status Carvedilol 3.125 MG 1 tablet with food Orally BID Active Finasteride 5 MG 1 tablet Orally Once a day Active Tamsulosin HCl 0.4 MG TAKE 1 CAPSULE BY MOUTH TWICE DAILY Active Ibuprofen 800 MG 1 tablet with food o r milk Orally Three times a day for 10 days 04/22/2017 Not-Taking Tessalon Perles 100 MG 2 capsule as need ed Orally Three times a day 01/07/2019 Not-Taking Irbesartan 300 MG 1 tablet Orally Once a day Active Spironolactone 25 MG 0.5 tablet Orally t wice a day Active Furosemide 40 MG TAKE 1 TABLET BY LITO ONCE DAILY Active amLODIPine Besylate 10 MG 1 tablet Orall y Once a day Active Paxlovid (300/100) 20 x 150 MG & 10 x 100MG 3 tablets Orally Twice a day for 5 day(s) 05/10/2024 Active Co Q 10 10 MG as directed Orally Active Aspir-Low 81 MG 1 tablet Orally Once a day for 30 day(s) Active Repatha 140 MG/ML 1 mL Subcutaneous fo r 30 day(s) Active Vital Signs Height 72.5 in 05/10/2024 weight at home is 230 BP not taken no temp Encounters Encounter Location Date Provider Diagnosis Chay Little MD [address] [place] [phone] 05/10/2024 Chay Little COVID-19 U07.1 Assessments Encounter Date Diagnosis (ICD Code) Assessment Notes Treatment Notes Treatment Clinical Notes Section Notes 05/10/2024 COVID-19 (ICD-10 - U07.1) patient verbalized understanding of medication and directions for use Plan Of Treatment Medication Medication Name Sig Start Date Stop Date Notes Paxlovid (300/100) 20 x 150 MG & 10 x 100MG 3 tablets Orally Twice a day for 5 day(s) 05/10/2024 Treatment Notes Assessment Notes COVID-19 patient verbalized u nderstanding of medication and directions for use Next Appt Details Provider Name:Chay mares, 10/17/2025 10:00:00 AM, [address] [place] [address], [phone], Provider Name:Chay mares, 04/11/2026 07:15:00 AM, [address] [place] [address], [phone], Provider Name:Chay mares, 04/18/2026 10:30:00 AM, [address] [place] [address], [phone], Progress Notes * PERNELL CASTILLODOB:1945 (78 yo M)Acc No.[id number]:05/10/2024 Patient: PERNELL DORMAN Provider: Reji Little MD :1945 A ge:78 Y S ex:Male Date:05/10/2024 Address:[address] [place] [address], [id number] Subjective: * Chief Complaints: * C OVID POSITVE tested todayC/o sore throat cough headache muscle pain, runny nose congestion nauseau x 1 dayAudio [phone] * HPI: S ymptom(s): Telehealth L ocation of provider rendering services: [address], [address], L ocation of patient: o ther (please specify), P atient identification confirmed using: N nadege, , SSN, Insurance information, T elehealth method: T elephone only. Patient not visible to care provider., C onsent: P atient verbally consented to treatment, Patient verbally consented to billing insurance company, Patient informed of any privacy concerns related to method of visit, T otal time spend talking with patient (minutes) 1 2. patient is a 78 yo male audio telehealth visit, got covid, tested positive today.. got sick just last night. complaining of sore throat, cough, hedache, muscle pain. * ROS: G eneral/Constitutional: Denies C hills. D enies F atigue. D enies F ever. A dmits H eadache. E NT: Patient denies d ecreased sense of smell, any loss of taste, sore throat. D enies S ore throat. R espiratory: Denies C ough. D enies S hortness of breath at rest. D enies S hortness of breath with exertion. D enies S putum production. G astrointestinal: Denies D iarrhea. D enies N ausea. M usculoskeletal: Patient denies m uscle aches. P eripheral Vascular: Patient denies r ed and blue toes. * Medical History: * Surgical History: * Hospitalization/Major Diagno stic Procedure: * Medications: T akingRepatha 140 MG/ML Solution Prefilled Syringe 1 mL Subcutaneous Co Q 10 10 MG Capsule as directed Orally Aspir-Low 81 MG Tablet Delayed Release 1 tablet Orally Once a dayFurosemide 40 MG Tablet TAKE 1 TABLET BY MOUTH ONCE DAILY amLODIPine Besylate 10 MG Tablet 1 tablet Orally Once a dayIrbesartan 300 MG Tablet 1 tablet Orally Once a daySpironolactone 25 MG Tablet 0.5 tablet Orally twice a dayCarvedilol 3.125 MG Tablet 1 tablet with food Orally BIDFinasteride 5 MG Tablet 1 tablet Orally Once a dayTamsulosin HCl 0.4 MG Capsule TAKE 1 CAPSULE BY MOUTH TWICE DAILY Taking Repatha 140 MG/ML Solution Prefilled Syringe 1 mL Subcutaneous Taking Co Q 10 10 MG Capsule as directed Orally Taking Aspir-Low 81 MG Tablet Delayed Release 1 tablet Orally Once a dayTaking Furosemide 40 MG Tablet TAKE 1 TABLET BY MOUTH ONCE DAILY Taking amLODIPine Besylate 10 MG Tablet 1 tablet Orally Once a dayTaking Irbesartan 300 MG Tablet 1 tablet Orally Once a dayTaking Spironolactone 25 MG Tablet 0.5 tablet Orally twice a dayTaking Carvedilol 3.125 MG Tablet 1 tablet with food Orally BIDTaking Finasteride 5 MG Tablet 1 tablet Orally Once a dayTaking Tamsulosin HCl 0.4 MG Capsule TAKE 1 CAPSULE BY MOUTH TWICE DAILY Not-Taking/PRNIbuprofen 800 MG Tablet 1 tablet with food or milk Orally Three times a dayTessalon Perles 100 MG Capsule 2 capsule as needed Orally Three times a dayMedication List reviewed and reconciled with the patientNot-Taking/PRN Ibuprofen 800 MG Tablet 1 tablet with food or milk Orally Three times a dayNot-Taking/PRN Tessalon Perles 100 MG Capsule 2 capsule as needed Orally Three times a dayMedication List reviewed and reconciled with the patient * Allergies: N .K.D.A.yes[Allergies Verified] Objective: * Vitals: H t: 72.5 weight at home is 230 BP not taken no temp. Assessment: * Assessment: 1. OVID-19 - U07.1 (Primary) Plan: * Treatment: * Procedure Codes: 9 9442 PHONE E/M BY PHYS 11-20 MIN * * Sign off status: Completed true * Provider: Reji Little MD Date: Generated for Nolvia rosado/Monse/Arleth on: 08/22/2024 09:27 PM EST History and Physical Notes * HPI (History of Present Illness) Category Sub-Category Detail Notes Category Not es Symptom(s) Telehealth Location of prov ider rendering services:: [address], [address] patient is a 78 yo male audio telehealth visit, got covid, tested positive today.. got sick just last night. complaining of sore throat, cough, hedache, muscle pain Location of patient:: other (please spec mike) Patient identification confirmed using:: Name, , SSN, Insurance information Telehealth method:: Telephone only. Tessa ent not visible to care provider. Consent:: Patient verbally c onsented to treatment, Patient verbally consented to billing insurance company, Patient informed of any privacy concerns related to method of visit Total time spend talking with patient (m inutes): 12
--- OUTSIDE RECORDS SUMMARY | 2024-05-11 09:05 | XMS_ITS ---
Author Organization Chay Little MD Address [address] [place] [phone] Care Team Providers Care Director Of Instruction Name Role Phone Chay Little Primary Care Provider [phone] REASON FOR VISIT med issue Encounters Encounter Location Date Provider Diagnosis Chay Little MD [address] [place] [phone] 05/11/2024 Chay Little Plan Of Treatment Next Appt Details Provider Name:Chay mares, 10/17/2025 10:00:00 AM, [address] [place] [address], [address] [place] [address], [phone], Provider Name:Chay calvor, 04/11/2026 07:15:00 AM, [address] [place] [address], [address] [place] [address], [phone], Provider Name:Chay mares, 04/18/2026 10:30:00 AM, [address] [place] [address], [address] [place] [address], [phone], Progress Notes * PERNELL CASTILLODOB:1945 (78 yo M)Acc No.[id number]:05/11/2024 Patient: PERNELL DORMAN :1945 A ge:78 Y S ex:Male Address:[address] [place] [address], [phone] * true * Date: Generated for Nolvia rosado/Monse/Krystlesmitting on: 08/22/2024 09:26 PM EST
--- OUTSIDE RECORDS SUMMARY | 2024-05-13 13:30 | XMS_ITS | Encounter Summary ---
Author Organization [facility] Address [address] [facility] [address] [place] [phone] Phone Care Team Providers Care Blending Technician Name Role Phone Chay Little MD Primary Care Provider Encounter Details Date Type Department Care Team (Late st Contact Info) Description 05/13/2024 2:30 PM EDT Hospital Encounter [facility] [address] [place] [phone] [address] Coker, [address] [place] [address] Social History Tobacco Use Types Packs/Day Years [...] on file documented as of this encounter Plan of Treatment Not on file documented as of this encounter Procedures Procedure Name Priority Date/Time Associated Diagnosis Comments XR CHEST PA AND LATERAL 2 VIEWS Urgent/patient waiting 05/13/2024 2:35 PM EDT Acute cough documented in this encounter Results * XR CHEST PA AND LATERAL 2 VIEWS (05/13/2024 2:35 PM EDT) Anatomical Region Laterality Modality Chest Computed Radiogr aphy 05/13/2024 3:13 PM EDT Impressions 05/13/2024 3:31 PM EDT No acute abnormality. ATTESTATION: I, Esther Paredes as teaching physician, have reviewed the images for this case and if necessary edited the report originally created by Fabricio Clark MD. Narrative 05/13/2024 3:31 PM EDT XR CHEST PA AND LATERAL 2 VIEWS Referring clinician's provided indication for this examination in Epic: Cough COMPARISON: XR CHEST PA AND LATERAL 2 VIEWS ; CT ABDOMEN/PELVIS WITHOUT CONTRAST FINDINGS: Devices/Tubes/Lines: None. Lungs: No focal consolidation or pulmonary edema. Unchanged faint 8 mm nodule overlying the posterior eighth rib, corresponding to benign sclerotic bone island seen on CT abdomen/pelvis in 2021. Pleura: No pleural effusion or pneumothorax. Heart/Mediastinum: Unchanged cardiomediastinal silhouette. Bones/Soft Tissues: Chronic mild anterior wedging of several mid thoracic vertebra associated with multilevel degenerative changes. Procedure Note Esther Paredes MD, PhD - 05/13/2024 XR CHEST PA AND LATERAL 2 VIEWS Referring clinician's provided indication for this examination in Epic:Cough COMPARISON: XR CHEST PA AND LATERAL 2 VIEWS ; CT ABDOMEN/PELVISWITHOUT CONTRAST FINDINGS: Devices/Tubes/Lines: None. Lungs: No focal consolidation or pulmonary edema. Unchanged faint 8 mmnodule overlying the posterior eighth rib, corresponding to benignsclerotic bone island seen on CT abdomen/pelvis in 2021. Pleura: No pleural effusion or pneumothorax. Heart/Mediastinum: Unchanged cardiomediastinal silhouette. Bones/Soft Tissues: Chronic mild anterior wedging of several mid thoracicvertebra associated with multilevel degenerative changes. IMPRESSION: No acute abnormality. ATTESTATION: I, Esther Paredes as teaching physician, have reviewedthe images for this case and if necessary edited the report originallycreated by Fabricio Clark MD. Hoda Coker SYSTEM AUDITOR IMG XR CHEST Final Resu lt documented in this encounter Visit Diagnoses Not on filedocumented in this encounter Additional Health Concerns Infection Onset Date Last Indicated Resolved Time Resp-Risk 06/13/2025 06/13/2025 documented as of this encounter Care Teams Blending Technician Relationship Specialty Start Date End Date Chay Little MD [address] [place] [address] [place] [address] PCP - General 05/01/17 documented as of this encounter Additional Source Comments The information contained in this document represents components of the legal health record. It is not the complete legal health record.[facility]
--- OUTSIDE RECORDS SUMMARY | 2024-10-08 05:15 | XMS_ITS ---
Author Organization Chay Little MD Address [address] [place] [phone] Care Team Providers Care Reel Cutter Name Role Phone Leticiaboubacar Chay Primary Care Provider [phone] Allergies No Known Allergies Reason For Referral Reason SCREEN FOR COLON CAN CER BOWEL HABIT CHANGES Diagnosis 1 Screen for colon can cer (Z12.11) Diagnosis 2 Bowel habit changes (R19.4) Referral Organization Chay Little MD Referring Provider First Name Chay Referring Provider Last Name Sidney Referring Provider Speciality Internal M edicine Referred Provider [facility] Referred Provider Specialty Gastroentero logy General Notes Carolina Long 10/08/2024 10:51:38 AM >REFERRAL TO BE FAXED TO DR MORIN, THEY DO NOT GIVE APPTS OVER THE PHONE . THEY WILL CONTACT PATIENT DIRECTLY. MR CASTILLO HAS BEEN INFORMED, Carolina Long 10/18/2024 09:14:14 AM >APPT SCHEDUULED FOR 11/04/2024 AT 10:15AM Referral Priority Routine Referral Appointment Date 11/04/2024 REASON FOR VISIT 6 month Medications Medication SIG (Take, Route, Frequency, Duration) Notes Start Date End Date Status Tessalon Perles 100 MG 2 capsule as need ed Orally Three times a day 01/07/2019 Not-Taking Ibuprofen 800 MG 1 tablet with food o r milk Orally Three times a day for 10 days 04/22/2017 Not-Taking Furosemide 40 MG TAKE 1 TABLET BY LITO TH ONCE DAILY Not-Taking Paxlovid (300/100) 20 x 150 MG & 10 x 100MG 3 tablets Orally Twice a day for 5 day(s) 05/10/2024 Not-Taking Spironolactone 25 MG 0.5 tablet Orally twice a day Active Carvedilol 6.25 MG 1 tablet with food Orally BID Active Irbesartan 300 MG 1 tablet Orally Once a day Active Finasteride 5 MG 1 tablet Orally Once a day Active Tamsulosin HCl 0.4 MG TAKE 1 CAPSULE BY MOUTH TWICE DAILY Active amLODIPine Besylate 10 MG 1 tablet Orall y Once a day Active Aspir-Low 81 MG 1 tablet Orally Once a day for 30 day(s) Active Clopidogrel Bisulfate 75 MG 1 tablet Orally Once a day Active Co Q 10 10 MG as directed Orally Active Vital Signs Blood pressure systolic 152 mm Hg 10/09/19 25 Blood pressure diastolic 54 mm Hg 025 Height 72.5 in 10/08/2024 Weight 235 lbs 10/08/2024 BMI 31.43 kg/m2 10/08/2024 Encounters Encounter Location Date Provider Diagnosis Chay Little MD [address] [place] [address] Drive [address] [place], [place] [phone] 10/08/2024 Chay Little Bowel habit changes R19.4 and Hypercholesterolemia E78.00 Assessments Encounter Date Diagnosis (ICD Code) Assessment Notes Treatment Notes Treatment Clinical Notes Section Notes 10/08/2024 Bowel habit changes (ICD-10 - R19.4) needs colonoscopy 10/08/2024 Hypercholesterolemia (ICD-10 - E78.00) not able to take statins and can't afford Plan Of Treatment Treatment Notes Assessment Notes Bowel habit changes needs colonoscopy Hypercholesterolemia not able to take st atins and can't afford Referrals Referral Date Details 10/08/2024 10/08/2024, SCREEN F OR COLON CANCER BOWEL HABIT CHANGES, [facility] Next Appt Details Provider Name:Chay mares, 10/17/2025 10:00:00 AM, [address], [address], [place], [place], [phone], Provider Name:Chay Rincon ier, 04/11/2026 07:15:00 AM, [address], [address], [place], [place], [phone], Provider Name:Chay Rincon ier, 04/18/2026 10:30:00 AM, [address], [address], [place], [place], [phone], Progress Notes * PERNELL CASTILLODOB:1945 (79 yo M)Acc No.[id number]:10/08/2024 Progress Notes Patient: PERNELL DORMAN Provider: Reji Little MD :1945 A ge:79 Y S ex:Male Date:10/08/2024 Address:[address] [place] [address] Subjective: * Chief Complaints: * 6 month * HPI: S ymptom(s): patient is a 79 yo male here for 6 month follow up visit/having diarrhea and now has constipation and hard to go. hard stools and hard to go. * ROS: G eneral/Constitutional: Denies C hills. D enies F atigue. D enies F ever. D enies H eadache. E NT: Denies S ore throat. R espiratory: Denies C ough. D enies S hortness of breath at rest. D enies S hortness of breath with exertion. C ardiovascular: Denies C hest pain at rest. D enies C hest pain with exertion. A dmits D izziness. D enies P alpitations. D enies S hortness of breath. G astrointestinal: Denies D iarrhea. D enies N ausea. * Medical History: * Surgical History: * Hospitalization/Major Diagno stic Procedure: * Medications: T akingClopidogrel Bisulfate 75 MG Tablet 1 tablet Orally Once a day Co Q 10 10 MG Capsule as directed Orally Aspir-Low 81 MG Tablet Delayed Release 1 tablet Orally Once a day amLODIPine Besylate 10 MG Tablet 1 tablet Orally Once a day Irbesartan 300 MG Tablet 1 tablet Orally Once a day Spironolactone 25 MG Tablet 0.5 tablet Orally twice a day Carvedilol 6.25 MG Tablet 1 tablet with food Orally BID Finasteride 5 MG Tablet 1 tablet Orally Once a day Tamsulosin HCl 0.4 MG Capsule TAKE 1 CAPSULE BY MOUTH TWICE DAILY Taking Clopidogrel Bisulfate 75 MG Tablet 1 tablet Orally Once a day Taking Co Q 10 10 MG Capsule as directed Orally Taking Aspir-Low 81 MG Tablet Delayed Release 1 tablet Orally Once a day Taking amLODIPine Besylate 10 MG Tablet 1 tablet Orally Once a day Taking Irbesartan 300 MG Tablet 1 tablet Orally Once a day Taking Spironolactone 25 MG Tablet 0.5 tablet Orally twice a day Taking Carvedilol 6.25 MG Tablet 1 tablet with food Orally BID Taking Finasteride 5 MG Tablet 1 tablet Orally Once a day Taking Tamsulosin HCl 0.4 MG Capsule TAKE 1 CAPSULE BY MOUTH TWICE DAILY Not-Taking/PRNFurosemide 40 MG Tablet TAKE 1 TABLET BY MOUTH ONCE DAILY Paxlovid (300/100) 20 x 150 MG & 10 x 100MG Tablet Therapy Pack 3 tablets Orally Twice a day Ibuprofen 800 MG Tablet 1 tablet with food or milk Orally Three times a day Tessalon Perles 100 MG Capsule 2 capsule as needed Orally Three times a day Not-Taking/PRN Furosemide 40 MG Tablet TAKE 1 TABLET BY MOUTH ONCE DAILY Not-Taking/PRN Paxlovid (300/100) 20 x 150 MG & 10 x 100MG Tablet Therapy Pack 3 tablets Orally Twice a day Not-Taking/PRN Ibuprofen 800 MG Tablet 1 tablet with food or milk Orally Three times a day Not-Taking/PRN Tessalon Perles 100 MG Capsule 2 capsule as needed Orally Three times a day DiscontinuedRepatha 140 MG/ML Solution Prefilled Syringe 1 mL Subcutaneous Medication List reviewed and reconciled with the patientDiscontinued Repatha 140 MG/ML Solution Prefilled Syringe 1 mL Subcutaneous Medication List reviewed and reconciled with the patient * Allergies: N .K.D.A.yes[Allergies Verified] Objective: * Vitals: H t: 72.5, Wt: 235, BMI:31.43, BP:152/54, Repeat BP:120/60, Wt-k.6. * Examination: G eneral Examination: GENERAL APPEARANCE: a lert, well hydrated, in no distress.? HEAD: n ormocephalic. SKIN: g ood turgor. HEART: r egular rate and rhythm, no murmurs, rubs, gallops.? LUNGS: n o wheezes, rales, rhonchi, good air movement, clear to auscultation bilaterally. Assessment: * Assessment: 1. B owel habit changes - R19.4 (Primary) 2 . H ypercholesterolemia - E78.00 Plan: * Treatment: 2. H ypercholesterolemia Notes: not able to take statins and can't afford 3. O thers Referral To:[facility] Gastroenterology Reason:SCREEN FOR COLON CANCER BOWEL HABIT CHANGES * Procedure Codes: * * Sign off status: Completed true * Provider: Reji Little MD Date: 0 10/08/2024 Generated for Anithai ashlee/Monse/eTransmitting on: 1 08/22/2024 09:28 PM EST History and Physical Notes * HPI (History of Present Illness) Category Sub-Category Detail Notes Category Not es Symptom(s) patient is a 79 yo male here for 6 month follow up visit/having diarrhea and now has constipation and hard to go. hard stools and hard to go Examination Category Sub-Category Detail Notes Category Not es General Examination GENERAL APPEARANCE: alert, w ell hydrated, in no distress HEAD: normocephalic HEART: regular rate and rhy thm, no murmurs, rubs, gallops LUNGS: no wheezes, rales, r honchi, good air movement, clear to auscultation bilaterally SKIN: good turgor Consultation Request Notes Referral Date Referring Provider Referred Provider Not es 10/08/2024 Chay Little PAUL SCREEN FOR COLON CANCER BOWEL HABIT CHANGES
--- OUTSIDE RECORDS SUMMARY | 2024-11-09 11:36 | XMS_ITS | Encounter Summary ---
Author Organization [facility] Address [address] [place] [phone] Phone Care Team Providers Care Social Director Name Role Phone Chay Little MD Primary Care Provider Encounter Details Date Type Department Care Team (Late st Contact Info) Description 11/09/2024 12:36 PM EDT Hospital Encounter [facility] [address] [place] [phone] Shannon Fernandes, SALES COMPENSATION ANALYST [address] [place] [address] [email or web address] Social History Tobacco Use Types Packs/Day Years [...] PA AND LATERAL 2 VIEWS Urgent/patient waiting 11/09/2024 12:40 PM EDT Acute cough documented in this encounter Results * XR CHEST PA AND LATERAL 2 VIEWS (11/09/2024 12:40 PM EDT) Anatomical Region Laterality Modality Chest Computed Radiogr aphy 11/09/2024 1:03 PM EDT Impressions 11/09/2024 1:05 PM EDT No acute radiographic abnormality. Narrative 11/09/2024 1:05 PM EDT XR CHEST PA AND LATERAL 2 VIEWS Referring clinician's provided indication for this examination in [facility]: Cough COMPARISON: XR CHEST PA AND LATERAL 2 VIEWS FINDINGS: Devices/Tubes/Lines: None. Lungs: No consolidation or significant pulmonary edema. Pleura: No pleural effusion or pneumothorax. Heart/Mediastinum: The cardiomediastinal silhouette is normal. Bones/Soft Tissues: No acute skeletal abnormality. Procedure Note Kirk Agrawal MD - 11/09/2024 XR CHEST PA AND LATERAL 2 VIEWS Referring clinician's provided indication for this examination in [facility]:Cough COMPARISON: XR CHEST PA AND LATERAL 2 VIEWS FINDINGS: Devices/Tubes/Lines: None. Lungs: No consolidation or significant pulmonary edema. Pleura: No pleural effusion or pneumothorax. Heart/Mediastinum: The cardiomediastinal silhouette is normal. Bones/Soft Tissues: No acute skeletal abnormality. IMPRESSION: No acute radiographic abnormality. Shannon Fernandes SALES COMPENSATION ANALYST IMG XR CHEST Final R esult documented in this encounter Visit Diagnoses Not on filedocumented in this encounter Additional Health Concerns Infection Onset Date Last Indicated Resolved Time Resp-Risk 06/13/2025 06/13/2025 documented as of this encounter Care Teams Social Director Relationship Specialty Start Date End Date Chay Little MD [address] [place] [address] [place] [address] PCP - General 05/01/17 documented as of this encounter Additional Source Comments The information contained in this document represents components of the legal health record. It is not the complete legal health record.[facility]
--- OUTSIDE RECORDS SUMMARY | 2025-04-08 02:45 | XMS_ITS ---
Author Organization Chay Little MD Address [address] [place], [place] [phone] Care Team Providers Care Physician Vice President Name Role Phone Sidney Chay Primary Care Provider [phone] Results Component Value Reference Range Notes Complete Blood Count Auto Di ff Reviewed date:04/08/2025 12:34:15 PM Interpretation: Performing Lab:[facility], [address] [place] [phone] Notes/Report: White Blood Count 9.3 4.8-10.8 X10*3/uL Red Blood Count 4.14 4.60-5.80 X10*6/uL Hemoglobin 13.4 14.0-18.0 g/dl Hematocrit 39.2 42.0-52.0 % Mean Corpuscular Volume 94.7 80.0-98.0 fL Mean Corpuscular Hemoglobin 32.4 27.0-33.0 pg Mean Corpuscular HGB Conc 34.2 31.0-36.0 g/dl Red Cell Distribution Width 13.2 11.0-16.0 % Platelet Count 206 160-400 X10*3/uL Mean Platelet Volume 9.6 9.4-12.4 fL Neutrophils Percent Auto 69.8 45-73 % Imm Gran Pct Auto 0.4 0.0-0.4 % Lymphocytes Percent Auto 20.4 20-40 % Monocytes Percent Auto 8.3 2-11 % Eosinophils Percent Auto 0.8 0-4 % Basophils Percent Auto 0.3 0-2 % NRBC Pct Auto 0.0 0.0-0.2 /100WBC Neutrophils Absolute Auto 6.5 2.0-8.3 x10*3/u L Imm Gran Abs Auto 0.04 0.00-0.03 X10*3/uL Lymphocytes Absolute Auto 1.9 1.2-4.9 X10*3/u L Monocytes Absolute Auto 0.8 0.1-1.2 X10*3/uL Eosinophils Absolute Auto 0.1 0.0-0.4 X10*3/u L Basophils Absolute Auto 0.0 0.0-0.2 X10*3/uL NRBC Abs Auto 0.000 0.0-0.012 X10*3/uL Comprehensive [place]. Panel Fa st Reviewed date:04/08/2025 12:42:07 PM Interpretation: Performing Lab:[address] [phone] Notes/Report: Sodium 142 135-145 mmol/L Potassium 4.2 3.3-5.1 mmol/L Chloride 107 96-108 mmol/L Carbon Dioxide 29 22-29 mmol/L Anion Gap 10 12-20 Blood Urea Nitrogen 16 9-16 mg/dL Creatinine 0.79 0.5-1.4 mg/dL Estimated Glomerular Filt Rate > 60 Chronic Kidney Disease: Estimated GFR < 60 mL/min/1.73m2 Severe Kidney Disease: Estimated GFR < 15 mL/min/1.73m2 Glucose Fasting 93 60-99 mg/dL Calcium 8.5 8.4-10.2 mg/dL Bilirubin Total 0.6 0.0-1.0 mg/dL Aspartate Amino Transferase 24 5-37 U/L Alanine Aminotransferase 22 0-40 U/L Total Protein 6.3 6.5-8.0 g/dL Albumin Level 3.9 3.5-5.0 g/dL Alkaline Phosphatase 50 39-117 U/L IRON PROFILE Reviewed date:04/08/2025 12:17:39 PM Interpretation: Performing Lab:[address], [place] [address] Notes/Report: Iron 109 45-160 mcg/dL Total Iron Binding Capacity 270 228-428 mcg/d L Percent Iron Saturation 40 15-50 % Unsaturated Iron Binding 161 Lipid Panel Reviewed date:04/08/2025 12:26:12 PM Interpretation: Performing Lab:[facility], [address] [place] [phone] Notes/Report: Triglycerides 71 <150 mg/dL Desirable Triglyceride: less than 150 mg/dL Borderline High Triglyceride 150-199 mg/dL High Triglyceride: 200-499 mg/dL Very High Triglyceride: greater than or equal to 5OO mg/dL Cholesterol 217 <200 mg/dL Desirable Cholesterol: less than 200 mg/dL Borderline High Cholesterol: 200-239 mg/dL High Cholesterol: greater than 239 mg/dL LDL Cholesterol Calculated 138 <100 mg/dL Desirable LDL: less than 100 mg/dL Near Optimal/Above Optimal LDL: 110-129 mg/dL Borderline High LDL: 130-159 mg/dL High LDL: 160-189 mg/dL Very High LDL: greater than or equal to 190 mg/dL HDL Cholesterol 65 >40 mg/dL Desirable HDL: greater than 40 mg/dL Note: This HDL assay may give artificially low results in patients with liver disease. PSA,Total (Free>4and<10) Reviewed date:04/08/2025 12:17:19 PM Interpretation: Performing Lab:[facility], [address] [place] [phone] Notes/Report: PSA,Total (Free>4and<10) 1.29 0.00-4.00 ng/mL A Free PSA was not [...] (CMIA) UA ClnCatch+Micro w/rflx Cul t Reviewed date:04/09/2025 04:12:18 PM Interpretation: Performing Lab:[facility], [address] [place] [address] Notes/Report: Urine, Clean Catch Color Urine Yellow Appearance Urine Clear PH 6.5 5.0-9.0 Glucose Urine UA Negative Negative mg/dL Urine Blood Negative Negative Specific [place] - Urine 1.015 1.005-1.025 Urine Protein 30 (1+) Neg-Trace mg/dL Urine Ketones Negative Negative mg/dL Nitrite Urine Negative Negative Leukocyte Esterase Urine Negative Negative RBC Urine 0-2 0-2 /HPF WBC Urine 0-5 0-5 /HPF Squamous Epithelial Cell Urine 0-2 0-2 /HPF Bacteria Urine None Seen None Seen Hyaline Casts Urine 0-2 0-2 /LPF REASON FOR VISIT yearly fasting labs Encounters Encounter Location Date Provider Diagnosis Chay Little MD [address] [place] [address] [place] [phone] 04/08/2025 Chay Little Blood tests for rout ine general physical examination Z00.00 ; Hypercholesterolemia E78.00 ; Essential hypertension I10 ; Prostatism N40.0 and Iron deficiency anemia, unspecified iron deficiency anemia type D50.9 Assessments Encounter Date Diagnosis (ICD Code) Assessment Notes Treatment Notes Treatment Clinical Notes Section Notes 04/08/2025 Blood tests for rout ine general physical examination (ICD-10 - Z00.00) 04/08/2025 Hypercholesterolemia (ICD-10 - E78.00) 04/08/2025 Essential hypertensi on (ICD-10 - I10) 04/08/2025 Prostatism (ICD-10 - N40.0) 04/08/2025 Iron deficiency anem ia, unspecified iron deficiency anemia type (ICD-10 - D50.9) Plan Of Treatment Next Appt Details Provider Name:Chay mares, 10/17/2025 10:00:00 AM, [address] [place] [address], [address], [phone], Provider Name:Chay mares, 04/11/2026 07:15:00 AM, [address] [place] [address], [address], [phone], Provider Name:Chay mares, 04/18/2026 10:30:00 AM, [address], [address], [place], [place], [phone], Progress Notes * PERNELL CASTILLODOB:1945 (79 yo M)Acc No.[id number]:04/08/2025 Progress Note Patient: PERNELL DORMAN Provider: Reji Little MD :1945 A ge:79 Y S ex:Male Date:04/08/2025 Address:[address] [place], [place] [phone] Subjective: * Chief Complaints: * 1 . Yearly fasting labs. * Medical History: Objective: * Vitals: Assessment: * Assessment: 1. B lood tests for routine general physical examination - Z00.00 (Primary) 2 .?Hypercholesterolemia - E78.00 3 . E ssential hypertension - I10 4 . P rostatism - N40.0 5 . I antoine deficiency anemia, unspecified iron deficiency anemia type - D50.9 Plan: * Treatment: 2. H ypercholesterolemia L AB: Complete Blood Count Auto Diff (Collection Date & Time - 04/08/2025 07:45 AM) L AB: Comprehensive [place]. Panel Fast (Collection Date & Time - 04/08/2025 07:45 AM) L AB: IRON PROFILE (Collection Date & Time - 04/08/2025 07:45 AM) L AB: Lipid Panel (Collection Date & Time - 04/08/2025 07:45 AM) L AB: PSA,Total (Free>4and<10) (Collection Date & Time - 04/08/2025 07:45 AM) L AB: UA ClnCatch+Micro w/rflx Cult (Collection Date & Time - 04/08/2025 07:45 AM) 3. E ssential hypertension L AB: Complete Blood Count Auto Diff (Collection Date & Time - 04/08/2025 07:45 AM) L AB: Comprehensive [place]. Panel Fast (Collection Date & Time - 04/08/2025 07:45 AM) L AB: IRON PROFILE (Collection Date & Time - 04/08/2025 07:45 AM) L AB: Lipid Panel (Collection Date & Time - 04/08/2025 07:45 AM) L AB: PSA,Total (Free>4and<10) (Collection Date & Time - 04/08/2025 07:45 AM) L AB: UA ClnCatch+Micro w/rflx Cult (Collection Date & Time - 04/08/2025 07:45 AM) 4. P rostatism L AB: Complete Blood Count Auto Diff (Collection Date & Time - 04/08/2025 07:45 AM) L AB: Comprehensive [place]. Panel Fast (Collection Date & Time - 04/08/2025 07:45 AM) L AB: IRON PROFILE (Collection Date & Time - 04/08/2025 07:45 AM) L AB: Lipid Panel (Collection Date & Time - 04/08/2025 07:45 AM) L AB: PSA,Total (Free>4and<10) (Collection Date & Time - 04/08/2025 07:45 AM) L AB: UA ClnCatch+Micro w/rflx Cult (Collection Date & Time - 04/08/2025 07:45 AM) 5. I antoine deficiency anemia, unspecified iron deficiency anemia type L AB: Complete Blood Count Auto Diff (Collection Date & Time - 04/08/2025 07:45 AM) L AB: Comprehensive [place]. Panel Fast (Collection Date & Time - 04/08/2025 07:45 AM) L AB: IRON PROFILE (Collection Date & Time - 04/08/2025 07:45 AM) L AB: Lipid Panel (Collection Date & Time - 04/08/2025 07:45 AM) L AB: PSA,Total (Free>4and<10) (Collection Date & Time - 04/08/2025 07:45 AM) L AB: UA ClnCatch+Micro w/rflx Cult (Collection Date & Time - 04/08/2025 07:45 AM) * Procedure Codes: 3 6415 VENIPUNCT, ROUTINE* * * The named appointment provid er may or may not be the originator of this progress note, and it is not deemed complete until electronically signed by the appointment provider. Sign off status: Pending * Provider: Reji Little MD Date: 0 04/08/2025 Generated for Nolvia rosado/Monse/Krystlesmitting on: 1 08/22/2024 09:27 PM EST
--- OUTSIDE RECORDS SUMMARY | 2025-04-15 06:00 | XMS_ITS ---
Author Organization Chay Little MD Address [address] [place] [id number] Care Team Providers Care Quality Control Systems Manager Name Role Phone Chay Little Primary Care Provider Allergies No Known Allergies REASON FOR VISIT annual visit Medications Medication SIG (Take, Route, Frequency, Duration) Notes Start Date End Date Status Ibuprofen 800 MG 1 tablet with food o r milk Orally Three times a day for 10 days 04/22/2017 Not-Taking Tessalon Perles 100 MG 2 capsule as need ed Orally Three times a day 01/07/2019 Not-Taking Furosemide 40 MG TAKE 1 TABLET BY LITO TH ONCE DAILY Not-Taking Entresto 97-103 MG 1 tablet Orally Twic e a day Active Paxlovid (300/100) 20 x [...] 1 CAPSULE BY MOUTH TWICE DAILY Active Clopidogrel Bisulfate 75 MG 1 tablet Orally Once a day Active Co Q 10 10 MG as directed Orally Active Aspir-Low 81 MG 1 tablet Orally Once a day for 30 day(s) Active amLODIPine Besylate 10 MG 1 tablet Orall y Once a day Active Social History Tobacco Use: Social History Observation Description Date Details (start date - stop date) Former Smoker NA - NA Tobacco Use/Smoking Question Answer Notes Patient is a former smoker How long has it been since y ou last smoked? > 10 years Additional Findings: Tobacco Non-User Fo rmer smoker, currently using no form of tobacco Vital Signs Blood pressure systolic 124 mm Hg 04/15/20 25 Blood pressure diastolic 58 mm Hg 025 Height 72.5 in 04/15/2025 Weight 237 lbs 04/15/2025 BMI 31.7 kg/m2 04/15/2025 weight is up 2 pounds since 10-08-24 Encounters Encounter Location Date Provider Diagnosis Chay Little MD [address] [place] [address] [address] [place], [place] [phone] 04/15/2025 Chay Little Hypercholesterolemia E78.00 ; Essential hypertension I10 ; Iron deficiency anemia, unspecified iron deficiency anemia type D50.9 ; Prostatism N40.0 and Chronic systolic congestive heart failure I50.22 Assessments Encounter Date Diagnosis (ICD Code) Assessment Notes Treatment Notes Treatment Clinical Notes Section Notes 04/15/2025 Hypercholesterolemia (ICD-10 - E78.00) took repeatha for 90 days and copay went to 980 04/15/2025 Essential hypertensi on (ICD-10 - I10) stbale, will continue current regiment 04/15/2025 Iron deficiency anem ia, unspecified iron deficiency anemia type (ICD-10 - D50.9) has resolved, will continue to monitor 04/15/2025 Prostatism (ICD-10 - N40.0) doing better on meds, will continue current regiment 04/15/2025 Chronic systolic congestive heart failure (ICD-10 - I50.22) stable, will contiue current regiment 04/15/2025 Other labs reviewed and discussed with patient, need colonoscopy result from dr archuleta/ will request report Plan Of Treatment Medication Medication Name Sig Start Date Stop Date Notes Spironolactone 25 MG 0.5 tablet Orally twice a day Carvedilol 6.25 MG 1 tablet with food Orally BID Finasteride 5 MG 1 tablet Orally Once a day Tamsulosin HCl 0.4 MG TAKE 1 CAPSULE BY MOUTH TWICE DAILY amLODIPine Besylate 10 MG 1 tablet Orally Once a day Treatment Notes Assessment Notes Hypercholesterolemia took repeatha for 9 0 days and copay went to 980 Essential hypertension stbale, will cont inue current regiment Iron deficiency anemia, unsp ecified iron deficiency anemia type has resolved, will continue to monitor Prostatism doing better on meds , will continue current regiment Chronic systolic congestive heart failur e stable, will contiue current regiment Other labs reviewed and di scussed with patient, need colonoscopy result from dr archuleta/ will request report Next Appt Details Follow Up: 6 Months, Reason: Provider Name:Chay mares, 10/17/2025 10:00:00 AM, [address] [place] [address], [address], [phone], Provider Name:Chay mares, 04/11/2026 07:15:00 AM, [address] [place] [address], [place] [address], [place], [place], [phone], Provider Name:Chay mares, 04/18/2026 10:30:00 AM, [address] [place] [address], [place] [address], [place], [place], [phone], Progress Notes * PERNELL CASTILLODOB:1945 (79 yo M)Acc No.[id number]:04/15/2025 Progress Notes Patient: PERNELL DORMAN Provider: Reji Little MD :1945 A ge:79 Y S ex:Male Date:04/15/2025 Address:[address] [place], [place] [phone] Subjective: * Chief Complaints: * A nnual visit * HPI: D epression Screening: PHQ-9 L [...] oes the patient have a hearing impairment N o, D oes the patient have a vision impairment? Y es, I f yes, what is the vision impairment? G lasses, D oes the patient have a cognition impairment? N o. F all Risk: History H ave you had any falls with injury in the past year? N o, H ave you had two or more falls in the past year? N o. S MARIA VICTORIA Questions: SDOH Questions I n the past year have you been worried about losing housing? N o, I n the past year have you or any family members you live with been unable to get any of the following when it was really needed? Check all that apply: N one. S ymptom(s): patient is a 79 yo male here for annual visit with review of recent labs and follow up of chronic issues. * ROS: G eneral/Constitutional: Change in appetite d enies. C hills d enies. F ever d enies. O phthalmologic: Blurred vision d enies. D ischarge d enies. P ain d enies. E NT: Decreased hearing d enies. S ore throat d enies.?Swollen glands d enies. E ndocrine: Cold intolerance [...] F requent urination d enies. M usculoskeletal: Painful joints d enies. W eakness d enies. ? S kin: Dry skin d enies. I [...] 1 son(s) , 1 daughter(s) . . Father-DC Mother Old age, Denies mental health/substance abuse [...] smoker, currently using no form of tobacco. M iscellaneous: C affeine: no. Children: yes. Exercise: no. Home smoke detector use: yes. Housing: owning. Living with: spouse. Marital status: . Pets: none. * Medications: T akingEntresto 97-103 MG Tablet 1 tablet Orally Twice a day Clopidogrel Bisulfate 75 MG Tablet 1 tablet [...] 1 CAPSULE BY MOUTH TWICE DAILY Taking Entresto 97-103 MG Tablet 1 tablet Orally Twice a day Taking Clopidogrel Bisulfate 75 MG Tablet 1 [...] as needed Orally Three times a day DiscontinuedIrbesartan 300 MG Tablet 1 tablet Orally Once a day Medication List reviewed and reconciled with the patientDiscontinued Irbesartan 300 MG Tablet 1 tablet Orally Once a day Medication List reviewed and reconciled with the patient * Allergies: N .K.D.A.yes[Allergies Verified] Objective: * Vitals: H t: 72.5, Wt: 237, BMI:31.7, BP:124/58, Wt-k.5. weight is up 2 pounds since 10-08-24. * P ast Orders: L ab:Comprehensive [place]. Panel Fast (Order Date - 04/08/2025) (Collection Date & Time - 04/08/2025 07:45 AM) Value Reference Range Sodium 142 135-145 - mmol/L Bilirubin Total 0.6 0.0-1.0 - mg/dL Aspartate Amino Transferase 24 5-37 - U/L Alanine Aminotransferase 22 0-40 - U/L Total Protein 6.3 L 6.5-8.0 - g/dL Albumin Level 3.9 3.5-5.0 - g/dL Alkaline Phosphatase 50 39-117 - U/L Potassium 4.2 3.3-5.1 - mmol/L Chloride 107 96-108 - mmol/L Carbon Dioxide 29 22-29 - mmol/L Anion Gap 10 L 12-20 - Blood Urea Nitrogen 16 9-16 - mg/dL Creatinine 0.79 0.5-1.4 - mg/dL Estimated Glomerular Filt Rate > 60 - Glucose Fasting 93 60-99 - mg/dL Calcium 8.5 8.4-10.2 - mg/dL L ab:IRON PROFILE (Order Date - 04/08/2025) (Collection Date & Time - 04/08/2025 07:45 AM) Value Reference Range Iron 109 45-160 - mcg/dL Total Iron Binding Capacity 270 228-428 - mc g/dL Percent Iron Saturation 40 15-50 - % Unsaturated Iron Binding 161 - ug/dL L ab:Lipid Panel (Order Date - 04/08/2025) (Collection Date & Time - 04/08/2025 07:45 AM) Value Reference Range Triglycerides 71 <150 - mg/dL Cholesterol 217 H <200 - mg/dL LDL Cholesterol Calculated 138 H <100 - mg/dL HDL Cholesterol 65 >40 - mg/dL L ab:PSA,Total (Free>4and<10) (Order Date - 04/08/2025) (Collection Date & Time - 04/08/2025 07:45 AM) Value Reference Range PSA,Total (Free>4and<10) 1.29 0.00-4.00 - ng/ mL L ab:Complete Blood Count Auto Diff (Order Date - 04/08/2025) (Collection Date & Time - 04/08/2025 07:45 AM) Value Reference Range White Blood Count 9.3 4.8-10.8 - X10*3/uL Red Blood Count 4.14 L 4.60-5.80 - X10*6/uL Hemoglobin 13.4 L 14.0-18.0 - g/dl Hematocrit 39.2 L 42.0-52.0 - % Mean Corpuscular Volume 94.7 80.0-98.0 - fL Mean Corpuscular Hemoglobin 32.4 27.0-33.0 - pg Mean Corpuscular HGB Conc 34.2 31.0-36.0 - g/ dl Red Cell Distribution Width 13.2 11.0-16.0 - % Platelet Count 206 160-400 - X10*3/uL Mean Platelet Volume 9.6 9.4-12.4 - fL Neutrophils Percent Auto 69.8 45-73 - % Imm Gran Pct Auto 0.4 0.0-0.4 - % Lymphocytes Percent Auto 20.4 20-40 - % Monocytes Percent Auto 8.3 2-11 - % Eosinophils Percent Auto 0.8 0-4 - % Basophils Percent Auto 0.3 0-2 - % NRBC Pct Auto 0.0 0.0-0.2 - /100WBC Neutrophils Absolute Auto 6.5 2.0-8.3 - x10* 3/uL Imm Gran Abs Auto 0.04 H 0.00-0.03 - X10*3/uL Lymphocytes Absolute Auto 1.9 1.2-4.9 - X10* 3/uL Monocytes Absolute Auto 0.8 0.1-1.2 - X10*3/ uL Eosinophils Absolute Auto 0.1 0.0-0.4 - X10* 3/uL Basophils Absolute Auto 0.0 0.0-0.2 - X10*3/ uL NRBC Abs Auto 0.000 0.0-0.012 - X10*3/uL * Examination: G eneral Examination: GENERAL APPEARANCE: [...] external hemorrhoids, no masses palpable, prostate normal, . MALE GENITOURINARY: n ot examined. EXTREMITIES: n o clubbing, cyanosis, or edema. NEUROLOGIC: n onfocal, motor strength normal upper and lower extremities, sensory exam intact. Assessment: * Assessment: 1. E ssential hypertension - I10 (Primary) 2 . H ypercholesterolemia - E78.00 3 . I antoine deficiency anemia, unspecified iron deficiency anemia type - D50.9? 4. P rostatism - N40.0 5 . C hronic systolic congestive heart failure - I50.22 Plan: * Treatment: 2. H ypercholesterolemia Notes: took repeatha for 90 days and copay went to 980 3. I antoine deficiency anemia, unspecified iron deficiency anemia type Notes: has resolved, will continue to monitor 4. P rostatism Continue Finasteride Tablet, 5 MG, 1 tablet, Orally, Once a day; C ontinue Tamsulosin HCl Capsule, 0.4 MG, TAKE 1 CAPSULE BY MOUTH TWICE DAILY. Notes: doing better on meds, will continue current regiment 5. C hronic systolic congestive heart failure Notes: stable, will contiue current regiment 6. O thers Notes: labs reviewed and discussed with patient, need colonoscopy result from dr archuleta/ will request report * Procedure Codes: * Follow Up: 6 Months * * Sign off status: Completed true * Provider: Reji Little MD Date: Generated for Nolvia rosado/Monse/Pabloitting on: 08/22/2024 09:25 PM EST History and Physical Notes * HPI (History of Present Illness) Category Sub-Category Detail Notes Category Not es Symptom(s) patient is a 79 yo male here for annual visit with review of recent labs and follow up of chronic issues Depression Screening PHQ-9 Little inte rest or [...] Does the patient have a hearing impairment: No Does the patient have a vision impairmen [...] clubbing, cyanosi s, or edema MALE GENITOURINARY: not examined RECTAL EXAM: normal tone, no exte rnal hemorrhoids, no masses palpable, prostate normal, ORAL CAVITY: mucosa moist
--- OUTSIDE RECORDS SUMMARY | 2025-06-13 08:55 | XMS_ITS | Encounter Summary ---
Author Organization [facility] Address [address] [place] [address] Phone Care Team Providers Care Dog Food Shredder Operator Name Role Phone Chay Little MD Primary Care Provider Encounter Details Date Type Department Care Team (Late st Contact Info) Description 06/13/2025 8:55 AM EST Hospital Encounter [facility] [address] [place] [phone] Char Martinez FNP [address] [place] [phone] [email or web address] Social History Tobacco Use Types Packs/Day Years [...] PA AND LATERAL 2 VIEWS Urgent/patient waiting 06/13/2025 8:58 AM EST Viral upper respiratory tract infection with cough POCT SARS-COV-2, INFLUENZA A/B, RSV, PCR Routine 06/13/2025 8:56 AM EST documented in this encounter Results * POCT SARS-CoV-2, Influenza A/B, RSV, PCR (06/13/2025 8:56 AM EST) [facility] SARS-Cov-2 PCR Negative Negative 06/13/2025 9:37 AM EST [facility] Influenza A Negative Negative 06/13/2025 9:37 AM EST [facility] Influenza B Negative Negative 06/13/2025 9:37 AM EST [facility] RSV PCR Negative Negative 06/13/2025 9:37 AM EST [facility] Swab (Anterior Nares) 06/13/2025 8:56 AM EST 06/13/2025 9:37 AM EST Char Martinez [facility] POCT DOCKED DEVICE UNSO LICTED RESULTS Final Result [facility] [place] [phone], [facility] [phone] documented in this encounter Visit Diagnoses Not on filedocumented in this encounter Additional Health Concerns Infection Onset Date Last Indicated Resolved Time Resp-Risk 06/13/2025 06/13/2025 documented as of this encounter Care Teams Dog Food Shredder Operator Relationship Specialty Start Date End Date Chay Little MD [address] [place] [address] [place] [address] PCP - General 05/01/17 documented as of this encounter Additional Source Comments The information contained in this document represents components of the legal health record. It is not the complete legal health record.[facility]
[2025-06-21 15:22] VITALS: BP 118/76; PULSE 60; BMI 31.1
--- NOTE | 2025-06-21 15:22 | A.OFFVIS_ITS ---
Vital Signs 06/21/25 15:22 Height 6 ft 1 in Weight 235 lb 14.314 oz BMI 31.1 BP 118/76 Blood Pressure Location Lt brachial Position Sitting Pulse 60 Intake Visit Reasons: 6 mth f/up Intake Note: 6 month follow-up c/o right side groin pain can sleep more then 2 hours a night Academic Affairs Dean Required: No Allergies No Known Allergies Allergy (Verified 07/18/23 10:27) Medication List - Last Reconciled 06/21/25 by Elier Roberts MD amlodipine 10 mg PO DAILY aspirin 81 mg PO DAILY carvedilol 12.5 mg PO BID [id number]--zinc 77-85-75-250 mg 300 caps PO DAILY finasteride 5 mg PO DAILY magnesium 250 mg PO DAILY multivitamin 1 tab PO DAILY nitroglycerin mg sublingual sacubitril-valsartan 97-103 mg (Entresto) 1 tab PO BID spironolactone 12.5 mg (1/2 x 25 mg) PO DAILY 90 days tamsulosin 0.4 mg PO BID HPI Comments Details: Jake comes for follow-up. Patient mainly complains of right groin pain. Patient denies any other cardiac symptoms. No worsening shortness of breath, orthopnea, PND. Takes all his medications. No prolonged palpitation irregular heartbeat. No lightheadedness, syncope. 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 Review of Systems Const Denies chills, Denies fatigue, Denies fever(s), Denies frequent falls, Denies weakness, Denies weight gain and Denies weight loss ENT Denies dizziness Card Denies chest pain, Denies leg edema, Denies lightheadedness, Denies palpitations, Denies dyspnea, Denies dyspnea on exertion, Denies orthopnea and Denies other (loss of consciousness) Resp Denies cough, Denies dyspnea and Denies dyspnea on exertion GI Denies hematochezia and Denies change in stool character Musc Denies abnormal gait, Denies muscle weakness, Denies numbness, Denies radiating pain into limb and Denies tingling Neuro Denies abnormal gait, Denies dizziness, Denies frequent falls, Denies numbness, Denies tingling and Denies weakness Endo Denies fatigue and Denies palpitations Physical Exam Vital Signs: Last Vital Signs Pulse 60 06/21/25 15:22 BP 118/76 06/21/25 15:22 BMI result Body Mass Index 31.1 Const General: cooperative, healthy appearing, comfortable and no acute distress Orientation/consciousness: patient oriented x3 Neck Neck: Yes normal visual inspection and Yes no JVD Resp Effort & Inspection: normal respiratory effort Auscultation: clear to auscultation bilaterally, no rales, no rhonchi and no wheezes Cardio Jugular venous distension: no JVD Rate: regular rate Rhythm: regular rhythm Heart sounds: S1 normal heart sound present, S2 normal heart sound present, no murmurs and no rubs Neuro General: patient oriented x3 Extrem Other: sock markings General: Yes normal to inspection and No no pedal edema Psych Appearance: grossly normal Mental Status: mental status grossly normal Speech and movement: Normal speech and movement present Assessment & Plan Assessment & Plan (1) Ischemic cardiomyopathy: Code(s): I25.5 - Ischemic cardiomyopathy Category: Medical Plan: Ischemic cardiomyopathy with vjya-lp-[id number] LV systolic dysfunction without signs of congestive heart failure. Clinically euvolemic and well compensated. Continue current neurohormonal modulation with Entresto as well as carvedilol therapy. No signs of heart failure and does not require loop diuretics. Continue aggressive blood pressure control. Signs and symptoms of heart failure were discussed. Encouraged to maintain activity level. Will benefit from weight loss program I have taken the liberty to refer him to bariatric surgery as per his request. (2) CAD (coronary artery disease): Code(s): I25.10 - Atherosclerotic heart disease of [place] coronary artery without angina pectoris Category: Medical Plan: CAD with drug-eluting stent to the LAD. No symptoms of angina. Continue low- dose aspirin therapy for life. Continue aggressive blood pressure control which is currently well optimized. Should be on statin therapy with target goal LDL less than 70 mg/dL. Will follow up in the clinic in 6 months time, sooner PRN. Thank you for allowing me to partake in his care Orders: Referrals Bariatric Surgery Referral E66.9 - Obesity, unspecified Medications: Changed From carvedilol 6.25 mg PO BID 180 tabs 3RF To carvedilol 12.5 mg PO BID Coding Level of Care Code Est Pt Level 4 (99468) Diagnoses Ischemic cardiomyopathy I25.5 CAD (coronary artery disease) I25.10
--- OUTSIDE RECORDS SUMMARY | 2025-06-21 21:25 | XMS_ITS | Encounter Summary ---
Author Organization [facility] Address [address] [place] [phone] Phone Care Team Providers Care Sales Developer Name Role Phone Chay Little MD Primary Care Provider Encounter Details Date Type Department Care Team (Late st Contact Info) Description 11/16/2021 Procedure Pass [facility] [place], Ct Scan - [address] [address] Social History Tobacco Use Types Packs/Day Years [...] 11:34 AM EDT Yodit Robles RN * [place] Suicide Severity Rating Scale (Screener/Recent Self-Report) Question [...] as of this encounter Care Teams Sales Developer Relationship Specialty Start Date End Date Chay Little MD [address] [place] [address] [place] [address] PCP - General 05/01/17 documented as of this encounter Additional Source Comments The information contained in this document represents components of the legal health record. It is not the complete legal health record.[facility]
--- OUTSIDE RECORDS SUMMARY | 2025-06-21 21:26 | XMS_ITS | Encounter Summary ---
Author Organization [facility] Address [address] [place] [phone] Phone Care Team Providers Care Hook And Eye Sewing Machine Operator Name Role Phone Chay Little MD Primary Care Provider Encounter Details Date Type Department Care Team (Late st Contact Info) Description 01/08/2022 Procedure Pass [facility] [place] [address] [place] [address] Social History Tobacco Use Types Packs/Day Years [...] documented as of this encounter Care Teams Hook And Eye Sewing Machine Operator Relationship Specialty Start Date End Date Chay Little MD [address] [place] [address] [place] [address] PCP - General 05/01/17 documented as of this encounter Additional Source Comments The information contained in this document represents components of the legal health record. It is not the complete legal health record.[facility]
--- OUTSIDE RECORDS SUMMARY | 2025-06-21 21:27 | XMS_ITS | Encounter Summary ---
Author Organization [facility] Address [address] [place] [phone] Phone Care Team Providers Care Retail Area Manager Name Role Phone Chay Little MD Primary Care Provider Encounter Details Date Type Department Care Team (Late st Contact Info) Description 12/15/2022 Procedure Pass [facility], Ct Scan - [address] [address] Social History Tobacco Use Types Packs/Day Years [...] 3:30 PM EDT Giuseppe Vieyra RN * [place] Suicide Severity Rating Scale (Screener/Recent Self-Report) Question [...] documented as of this encounter Care Teams Retail Area Manager Relationship Specialty Start Date End Date Chay Little MD [address] [place] [address] [place] [address] PCP - General 05/01/17 documented as of this encounter Additional Source Comments The information contained in this document represents components of the legal health record. It is not the complete legal health record.[facility]
--- OUTSIDE RECORDS SUMMARY | 2025-06-21 21:27 | XMS_ITS | Encounter Summary ---
Author Organization [facility] Address [address] [place] [phone] Phone Care Team Providers Care Mixer Operator Name Role Phone Chay Little MD Primary Care Provider Reason for Referral * Physical Therapy (Routine) - Closed Specialty Diagnoses / Procedures Referred By Alejandra long Referred To Contact Physical Therapy Diagnoses Encounter for rehabilitation System, Provider Not In, [facility] [id number] [place] [phone] Phone: tel: Referral ID Status Reason Start Date Expiration Date Visits Re quested Visits Authorized [id number] Closed 12/29/2017 07/13/2018 99 [phone] Encounter Details Date Type Department Care Team (Latest Contact Info) Description 12/29/2017 Transcribe Orders [facility] [address] [place] [phone] Kevin Loomis PA [facility] Roula Cotter [address] [address] Encounter for rehabilitation (Primary Dx) Social History [...] Diagnoses Orde r Schedule Ambulatory referral to [facility] Physical Therapy Outpatient Referral Routine Encounter for [...] documented as of this encounter Care Teams Mixer Operator Relationship Specialty Start Date End Date Chay Little MD [address] [place] [address] [place] [address] PCP - General 05/01/17 documented as of this encounter Additional Source Comments The information contained in this document represents components of the legal health record. It is not the complete legal health record.[facility]
--- OUTSIDE RECORDS SUMMARY | 2025-06-21 21:27 | XMS_ITS | Encounter Summary ---
Author Organization [facility] Address [address] [place] [address] [place] [address] Phone Care Team Providers Care Cartridge Filler Name Role Phone Chay Little MD Primary Care Provider Reason for Referral * MRI/CAT Scan - Closed Specialty Diagnoses / Procedures Referred By Contac t Referred To Contact Radiology Diagnoses Coronary artery disease without angina pectoris, unspecified vessel or lesion type, unspecified whether knik or transplanted heart Procedures NC Myocardial Perfusion Rest Single NC Myocardial Perfusion Pharmacologic Stress Multiple Yimi Stroud MD Phone: tel: fax: mailto: Referral ID Status Reason Start Date Expiration Date Visits Re quested Visits Authorized [id number] Closed 01/21/2023 01/21/2024 1 1 Encounter Details Date Type Department Care Team (Latest Contact Info) Description 01/27/2023 Ancillary Orders [facility] [address] [place] [address] 3rd Floor, [address] [place] [address] Yimi Stroud MD [address] [place] [address] [email or web address] Coronary artery disease without angina pectoris, unspecified vessel or lesion type, unspecified whether knik or transplanted heart Social History Tobacco Use [...] in SPECT format, reconstructed tomographically and compared [id number] in short axis, horizontal long axis and [...] unspecified vessel or lesion type, unspecified whether knik or transplanted heart Dyspnea on exertion Other dyspnea and respiratory abnormality Coronary artery disease without angina pectoris, unspecified vessel or lesion type, unspecified whether knik or transplanted heart documented in this encounter Additional Health Concerns Infection Onset Date Last Indicated Resolved Time CoV-Risk 02/26/2024 02/26/2024 03/08/2024 1:23 AM EDT Resp-Risk 06/13/2025 06/13/2025 documented as of this encounter Care Teams Cartridge Filler Relationship Specialty Start Date End Date Chay Little MD [address] [place] [address] [place] [address] PCP - General 05/01/17 documented as of this encounter Additional Source Comments The information contained in this document represents components of the legal health record. It is not the complete legal health record.[facility]
--- OUTSIDE RECORDS SUMMARY | 2025-06-21 21:27 | XMS_ITS | Encounter Summary ---
Author Organization [facility] Address [address] [place] [address] Phone Care Team Providers Care Punch Press Operator Name Role Phone Chay Little MD Primary Care Provider Encounter Details Date Type Department Care Team (Late st Contact Info) Description 12/15/2022 Procedure Pass [facility], Ct Scan - [address] [address] Social History Tobacco Use Types Packs/Day Years [...] 3:30 PM EDT Giuseppe Vieyra RN * Theodore Suicide Severity Rating Scale (Screener/Recent Self-Report) Question [...] documented as of this encounter Care Teams Punch Press Operator Relationship Specialty Start Date End Date Chay Little MD [address] [place] [address] [place] [address] PCP - General 05/01/17 documented as of this encounter Additional Source Comments The information contained in this document represents components of the legal health record. It is not the complete legal health record.[facility]
--- OUTSIDE RECORDS SUMMARY | 2025-06-21 21:27 | XMS_ITS | Encounter Summary ---
Author Organization [facility] Address [address] [place] [address] Phone Care Team Providers Care Industrial Machine Assembler Name Role Phone Chay Little MD Primary Care Provider Encounter Details Date Type Department Care Team (Late st Contact Info) Description 12/15/2022 Procedure Pass [facility], Ct Scan - [address] [address] Social History Tobacco Use Types Packs/Day Years [...] 3:30 PM EDT Giuseppe Vieyra RN * [place] Suicide Severity Rating Scale (Screener/Recent Self-Report) Question [...] documented as of this encounter Care Teams Industrial Machine Assembler Relationship Specialty Start Date End Date Chay Little MD [address] [place] [address] [place] [address] PCP - General 05/01/17 documented as of this encounter Additional Source Comments The information contained in this document represents components of the legal health record. It is not the complete legal health record.[facility]
--- OUTSIDE RECORDS SUMMARY | 2025-06-21 21:29 | XMS_ITS | Patient Health Record ---
Author Organization Chay Little MD Address [address] [place], [place] [address] Care Team Providers Care Lab Tester Name Role Phone Chay Little Primary Care Provider [phone] Allergies No Known Allergies Results Component Value Reference Range Notes Complete Blood Count Auto Di ff Reviewed date:04/08/2025 12:34:15 PM Interpretation: Performing Lab:[facility], [address] [place] [phone] Notes/Report: White Blood Count 9.3 4.8-10.8 X10*3/uL [...] NRBC Abs Auto 0.000 0.0-0.012 X10*3/uL Comprehensive [place]. Panel Fa st Reviewed date:04/08/2025 12:42:07 PM Interpretation: Performing Lab:[address] [phone] Notes/Report: Sodium 142 135-145 mmol/L Potassium 4.2 [...] PROFILE Reviewed date:04/08/2025 12:17:39 PM Interpretation: Performing Lab:[facility], [address] [place] [phone] Notes/Report: Iron 109 45-160 mcg/dL Total Iron Binding Capacity 270 228-428 mcg/d L Percent Iron Saturation 40 15-50 % Unsaturated Iron Binding 161 Lipid Panel Reviewed date:04/08/2025 12:26:12 PM Interpretation: Performing Lab:[facility], [address] [place] [phone] Notes/Report: Triglycerides 71 <150 mg/dL Desirable Triglyceride: [...] (Free>4and<10) Reviewed date:04/08/2025 12:17:19 PM Interpretation: Performing Lab:[facility], [address] [place] [phone] Notes/Report: PSA,Total (Free>4and<10) 1.29 0.00-4.00 ng/mL A [...] t Reviewed date:04/09/2025 04:12:18 PM Interpretation: Performing Lab:[facility], [address] [place] [phone] Notes/Report: Urine, Clean Catch Color Urine Yellow Appearance Urine Clear PH 6.5 5.0-9.0 Glucose Urine UA Negative Negative mg/dL Urine Blood Negative Negative Specific [place] - Urine 1.015 1.005-1.025 Urine Protein 30 (1+) Neg-Trace mg/dL Urine Ketones Negative Negative mg/dL Nitrite Urine Negative Negative Leukocyte Esterase Urine Negative Negative RBC Urine 0-2 0-2 /HPF WBC Urine 0-5 0-5 /HPF Squamous Epithelial Cell Urine 0-2 0-2 /HPF Bacteria Urine None Seen None Seen Hyaline Casts Urine 0-2 0-2 /LPF Basic Metabolic Panel Fastin g Reviewed date:01/20/2025 04:11:52 PM Interpretation: Performing Lab:[facility], [address] [place] [phone] Notes/Report: Sodium 139 135-145 mmol/L Potassium 4.0 [...] Panel Reviewed date:02/22/2025 03:39:08 PM Interpretation: Performing Lab:[facility], [address] [place] [phone] Notes/Report: Sodium 141 135-145 mmol/L Potassium 4.1 [...] 10 10 MG as directed Orally Active Tessalon Perles 100 MG 2 capsule as need ed Orally Three times a day 01/07/2019 Not-Taking Aspir-Low 81 MG 1 tablet Orally Once a day for 30 day(s) Active Spironolactone 25 MG 0.5 tablet Orally twice a day Active Carvedilol 6.25 MG 1 tablet with food Orally BID Active Finasteride 5 MG 1 tablet Orally Once a day Active Furosemide 40 MG TAKE 1 TABLET BY LITO TH ONCE DAILY Not-Taking Entresto 97-103 MG 1 tablet Orally Twic e a day Active Paxlovid (300/100) 20 x 150 MG & 10 x 100MG 3 tablets Orally Twice a day for 5 day(s) 05/10/2024 Not-Taking Tamsulosin HCl 0.4 MG TAKE 1 CAPSULE BY MOUTH TWICE DAILY for 90 Active amLODIPine Besylate 10 MG 1 tablet Orall y Once a day Active Immunizations Vaccine Route Administration Date Status Comme nts Fluarix Quadrivalent IM Intramuscular 08/12/2016 Administe red PPSV23 (Pnemovax) IM Intramuscular 09/20/2016 Administered Fluarix Quadrivalent IM Intramuscular 03/24/2017 Admindarin red Prevnar 13 IM Intramuscular 10/07/2017 Administered Influenza High Dose IM Intramuscular 04/21/2018 Administer ed pt was given the vaccine at [facility]. Influenza High Dose IM Intramuscular 04/09/2019 Administer ed pt was given the vaccine at [facility] in [place]. Influenza High Dose IM Intramuscular 03/21/2020 Administer ed SARS-COV-2 Pfizer Unknown 09/26/2020 Administered SARS-COV-2 Pfizer Unknown 10/17/2020 Administered Influenza High Dose IM Intramuscular 03/23/2021 Administer ed SARS-COV-2 Pfizer Unknown 04/27/2021 Administered Walgr een's SARS-COV-2 Pfizer Unknown 11/10/2021 Administered Walgr een's Prevnar 20 Unknown 04/08/2025 Administered TDaP Unknown 10/16/2018 Refused Social History Tobacco [...] Problem Status W/U Status Risk Notes Problem 48921621 Atherosclerotic heart disease of havasupai coronary artery without angina pectoris (I25.10) Active confirmed Problem 13619084 Prostatism (N40.0) Active confirmed Problem 391362433 Statin intoleran ce (Z78.9) Active confirmed Problem 615825527 Mixed hyperlipid emia (E78.2) Active confirmed Problem 63982373 Obstructive slee p apnea (adult) (pediatric) (G47.33) Active confirmed Problem 67132817 Essential hypert ension (I10) Active confirmed Problem 804685072 Chronic systolic congestive heart failure (I50.22) Active confirmed Problem 27632652 Iron deficiency anemia, unspecified iron deficiency anemia type (D50.9) Active confirmed Problem 226957565 History of myoca rdial infarction (I25.2) Active confirmed Problem 07798721 Hypercholesterol emia (E78.00) Active confirmed Problem 52912781 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) Active confirmed Problem 540234811 Status post willian nary artery stent placement (Z95.5) Active confirmed Vital Signs Blood pressure diastolic 58 mm Hg 04/15/2025 stefani ght is up 2 pounds since 10-08-24 Height 72.5 in 04/15/2025 weight is up 2 pounds since 10-08-24 Blood pressure systolic 124 mm Hg 04/15/2025 weig ht is up 2 pounds since 10-08-24 Weight 237 lbs 04/15/2025 weight is up 2 pounds since 10-08-24 BMI 31.7 kg/m2 04/15/2025 weight is up 2 pounds since 10-08-24 Encounters Encounter Location Date Provider Diagnosis Chay Little MD [address] [place] [address] [address] [place] [id number] 04/08/2025 Chay Little Blood tests for rout ine general physical examination Z00.00 ; Hypercholesterolemia E78.00 ; Essential hypertension I10 ; Prostatism N40.0 and Iron deficiency anemia, unspecified iron deficiency anemia type D50.9 Chay Little MD [address] [place] [address] [address] [place] [id number] 10/08/2024 Chay Little Bowel habit changes R19.4 and Hypercholesterolemia E78.00 Chay Little MD [address] [place] [address] [address] [place] [id number] 04/15/2025 Chay Little Hypercholesterolemia E78.00 ; Essential hypertension I10 ; Iron deficiency anemia, unspecified iron deficiency anemia type D50.9 ; Prostatism N40.0 and Chronic systolic congestive heart failure I50.22 Assessments Encounter Date Diagnosis (ICD Code) Assessment Notes Treatment Notes Treatment Clinical Notes Section Notes 04/08/2025 [address] tests [address] ine general physical examination (ICD-10 - Z00.00) 10/08/2024 Bowel habit changes (ICD-10 - R19.4) needs colonoscopy 04/15/2025 Hypercholesterolemia (ICD-10 - E78.00) took repeatha for 90 days and copay went to 980 04/15/2025 Essential hypertensi on (ICD-10 - I10) stbale, will continue current regiment 04/08/2025 Hypercholesterolemia (ICD-10 - E78.00) 10/08/2024 Hypercholesterolemia (ICD-10 - E78.00) not able to take statins and can't afford 04/15/2025 Iron deficiency anem ia, unspecified iron deficiency anemia type (ICD-10 - D50.9) has resolved, will continue to monitor 04/08/2025 Essential hypertensi on (ICD-10 - I10) 04/15/2025 Prostatism (ICD-10 - N40.0) doing better on meds, will continue current regiment 04/08/2025 Prostatism (ICD-10 - N40.0) 04/15/2025 Chronic systolic congestive heart failure (ICD-10 - I50.22) stable, will contiue current regiment 04/08/2025 Iron deficiency anem ia, unspecified iron deficiency anemia type (ICD-10 - D50.9) 04/15/2025 Other labs reviewed and discussed with patient, need colonoscopy result from dr archuleta/ will request report Plan Of Treatment Pending Test Test Name Order Date Electrocardiogram (EKG) 10/16/2018 XR CHEST 2 VIEW PA & LAT 02/25/2022 Next Appt Details Provider Name:Chay mares, 10/17/2025 10:00:00 AM, [address] [place] [address], Suite [facility], [place], [place], [phone], Provider Name:Chay mares, 04/11/2026 07:15:00 AM, [address] [place] [address], Suite [facility], [place], [place], [phone], Provider Name:Chay calvor, 04/18/2026 10:30:00 AM, [address] [place] [address], [place] [address], [place], [place], [phone], Insurance Providers Payer Name Payer Address Payer Phone Subscriber Number Group Number Insured Name Patient Relationship to Insured Coverage Start Date Coverage End Date [employer] [address] [address] [place] [address] [id number] PERNELL CASTILLO Self - patient is the insured [facility] [address] [address] [place] [address] [phone] [id number] PERNELL CASTILLO Self - patient is the insured Medical (General) History Medical History History ICD Code colonoscopy 07/27/15 Dr. Yamil mulligan - repeat 07/28/19 (4 years)01/03/25 colonoscopy pending path Cyst of ear canal Q18.1
--- OUTSIDE RECORDS SUMMARY | 2025-06-21 21:30 | XMS_ITS | Encounter Summary ---
Author Organization [facility] Address [address] [place] [address] Phone Care Team Providers Care Can Labeler Name Role Phone Chay Little MD Primary Care Provider Reason for Referral * MRI/CAT Scan - Closed Specialty Diagnoses / Procedures Referred By Contcuco t Referred To Contact Radiology Diagnoses Dyspnea on exertion Procedures NC Myocardial Perfusion Pharmacologic Stress Multiple NC Myocardial Perfusion Exercise Multiple Wes Hobbs MD Phone: tel: fax: mailto:[email or web address] Referral ID Status Reason Start Date Expiration Date Visits Re quested Visits Authorized [id number] Closed 07/16/2017 07/16/2018 1 1 Encounter Details Date Type Department Care Team (Latest Contact Info) Description 08/11/2017 Ancillary Orders [facility] [address] [place] [address] 3rd Floor, [address] [place] [address] Wes Hobbs MD [address] [facility], [address] [address] Dyspnea on exertion Social History Tobacco Use [...] pending. EKG reviewed with Dr. Marcello Butterfield BANDING MACHINE OPERATOR Nuclear Cardiology Measurements End systolic (mL): 101 [...] documented as of this encounter Care Teams Can Labeler Relationship Specialty Start Date End Date Chay Little MD [address] [place] [address] [place] [address] PCP - General 05/01/17 documented as of this encounter Additional Source Comments The information contained in this document represents components of the legal health record. It is not the complete legal health record.[facility]
--- OUTSIDE RECORDS SUMMARY | 2025-06-21 21:30 | XMS_ITS | Clinical Summary ---
Author Organization [facility] [address] [facility] Address [address] [place] [address] Phone Care Team Providers Care Plugger Man Name Role Phone Chay Little MD Primary Care Provider [phone] Allergies No known active allergies Medications amLODIPine [...] Safety Answer Date Record ed Physical Abuse Unrecognized value 01/03/2025 Verbal Abuse Unrecognized value 01/03/2025 Sex and Gender Information Value Date Recorded Sex Assigned at Not on file Legal Sex Male 1:08 AM EST Gender Identity Not on file Sexual Orientation Not on file Last Filed [...] Completed 04/29/2024 Colorectal Cancer Screening: Colonoscopy Discontinued 01/03/2025, 2021, 07/27/2015 HIB Vaccines Aged Out No longer eligi [...] Maintenance Results * COLONOSCOPY Anesthesia - MAC; [facility] ENDOSCOPY (01/03/2025 9:36 AM EDT) Anatomical Region [...] office PRN. Narrative 01/03/2025 9:37 AM EDT [facility] Patient Name: Jake Castillo Procedure Date: [...] retroflexion views. Procedure Code(s): --- Professional --- 74214, Colonoscopy, flexible; with removal of tumor(s), polyp(s), or other lesion(s) by snare technique Diagnosis Code(s): --- Professional --- Z86.010, Personal history of colonic polyps D12.6, Benign neoplasm of colon, unspecified CPT copyright 2020 [employer]. All rights reserved. The codes documented in this report are preliminary and upon building construction supervisor review may be revised to meet current compliance requirements. Saravanan Woodson MD 01/03/2025 9:37:49 AM This report has been signed electronically.Saravanan Woodson MD Number of Addenda: 0 Note Initiated On: 01/03/2025 9:16 AM Scope In: Scope Out: Endoscopy Department at [facility] - [address] [place] [phone] Procedure Note Saravanan Woodson MD - 01/03/2025 [facility] Patient Name: Jake Castillo Procedure Date: [...] retroflexion views. Procedure Code(s): --- Professional --- 18832, Colonoscopy, flexible; with removal of tumor(s), polyp(s), or other lesion(s) by snare technique Diagnosis Code(s): --- Professional --- Z86.010, Personal history of colonic polyps D12.6, Benign neoplasm of colon, unspecified CPT copyright 2020 [employer]. All rights reserved. The codes documented in this report are preliminary and upon building construction supervisor reviewmay be revised to meet current compliance requirements. Saravanan Woodson MD 01/03/2025 9:37:49 AM This report has been signed electronically.Saravanan Woodson MD Number of Addenda: 0 Note Initiated On: 01/03/2025 9:16 AM Scope In: Scope Out: Endoscopy Department at [facility] - [address] [place] [phone] IMPRESSION: - One 4 mm polyp at [...] mmol/L LAB CHEMISTRY METHOD 10/19/2024 5:10 PM [facility] Potassium 4.0 3.5 - 5.5 mmol/L LAB CHEMISTRY METHOD 10/19/2024 5:10 PM [facility] Chloride 104 96 - 110 mmol/L LAB CHEMISTRY METHOD 10/19/2024 5:10 PM [facility] CO2 28 21 - 32 mmol/L LAB CHEMISTRY METHOD 10/19/2024 5:10 PM [facility] Anion Gap 6 3 - 11 LAB CHEMISTRY METHOD 10/19/2024 5:10 PM [facility] Glucose 139(H) 70 - 100 mg/dL LAB CHEMISTRY METHOD 10/19/2024 5:10 PM [facility] BUN 14 5 - 25 mg/dL LAB CHEMISTRY METHOD 10/19/2024 5:10 PM [facility] Creatinine 0.69(L) 0.70 - 1.30 mg/dL LAB CHEMISTRY METHOD 10/19/2024 5:10 PM [facility] eGFR 95 >=60 mL/min/1. 73m2 LAB CHEMISTRY METHOD 10/19/2024 5:10 PM [facility] Comment:Calculation based on the Chronic Kidney Disease Epidemiology Collaboration (CKD-EPI) equation refit without adjustment for race. BUN/Creatinine Ratio 20.3 LAB CHEMISTRY METHOD 10/19/2024 5:10 PM EDT [facility] Calcium 8.8 8.5 - 10.5 mg/dL LAB CHEMISTRY METHOD 10/19/2024 5:10 PM EDT [facility] AST (SGOT) 19 10 - 42 unit/L LAB CHEMISTRY METHOD 10/19/2024 5:10 PM EDT [facility] ALT (SGPT) 29 10 - 60 unit/L LAB CHEMISTRY METHOD 10/19/2024 5:10 PM EDT [facility] Alkaline Phosphatase 65 42 - 121 unit/L LAB CHEMISTRY METHOD 10/19/2024 5:10 PM EDT [facility] Total Protein 6.4 6.0 - 8.0 g/dL LAB CHEMISTRY METHOD 10/19/2024 5:10 PM EDT [facility] Albumin 3.4 3.2 - 5.0 g/dL LAB CHEMISTRY METHOD 10/19/2024 5:10 PM EDT [facility] Total Bilirubin 0.5 0.0 - 1.4 mg/dL LAB CHEMISTRY METHOD 10/19/2024 5:10 PM T [facility] Blood Venous blood specimen / Unknown Venipuncture / Unknown 10/19/2024 3:59 PM EDT 10/19/2024 4:12 PM EDT us Saravanan Woodson MD LAB BLOOD ORDERABLES Final Re sult [facility] [address] [place] [address], from Last 3 Months or Most Recently Relevant to Health Maintenance Insurance [facility] [employer] [place] [id number] MEDICARE Care Teams Plugger Man Relationship Specialty Start Date End Date Chay Little MD [address] [place] [address] [address] [place] [address] PCP - General Internal Medicine 10/11/24
--- OUTSIDE RECORDS SUMMARY | 2025-06-21 21:30 | XMS_ITS | Clinical Summary ---
Author Organization [facility] Address [address] [place], [place] [id number] Phone Care Team Providers Care Billiard Player Name Role Phone Chay Little MD Primary Care Provider Allergies No known active allergies Medications aspirin 81 MG EC tablet Active furosemide (LASIX) 20 MG tabletIndicatio ns:Dyspnea on exertion Take 1 tablet (20 mg total) by mouth daily. 90 tablet 3 2 Active spironolactone (ALDACTONE) 25 MG tabletIndicatio ns:Atherosclero sis of [place] coronary artery of [place] heart without angina pectoris TAKE 1 TABLET [...] 0.4 MG SL tabletIndicatio ns:Atherosclero sis of [place] coronary artery of [place] heart without angina pectoris Place 1 tablet (0.4 mg total) under the tongue as directed. 100 tablet 3 3 Active amLODIPine (NORVASC) 10 MG tabletIndicatio ns:Atherosclero sis of [place] coronary artery of [place] heart without angina pectoris TAKE 1 TABLET BY MOUTH DAILY 90 tablet 3 3 Active irbesartan (AVAPRO) 300 MG tabletIndicatio ns:Atherosclero sis of [place] coronary artery of [place] heart without angina pectoris TAKE 1 TABLET [...] (two) times a day with meals. Active benzonatate (TESSALON) 100 MG capsule Take 2 capsules (200 mg total) by mouth 3 (three) times a day as needed for cough. 21 capsule 5 Active Active Problems Problem Noted Date [...] he can afterwards. CAD (coronary artery disease), [place] coronary a rtery 11/13/2020 Assessment & Plan (09/06/2022 3:30 PM EST): Patient had a nuclear stress test without any evidence of ischemia, only prior scar. He also had an echocardiogram with an EF of 50 to 55% and grade 1 diastolic dysfunction. He is currently not taking his aspirin because of the surgery coming up. I did work counselor him that I would not have him stop the aspirin. He tells me he will start it again after his surgery. We will continue him on his current doses of amlodipine and carvedilol. Mixed hyperlipidemia 11/13/2020 Drug intolerance 03/31/2019 Atherosclerosis of [place] co ronary artery of [place] heart without angina pectoris 07/16/2017 Assessment & [...] Repatha, or Praluent. Dyspnea on exertion 07/16/2017 Encounters Date Type Department Care Team Description 06/13/2025 8:55 AM EST Hospital Encounter [facility] [address] [place] [id number] Char Martinez FNP 06/13/2025 8:40 AM EST Office Visit [facility] at [address] [id number] Char Martinez FNP Viral upper respiratory tract infection with cough (Primary Dx) from Last 3 Months Immunizations Immunization Administration Dates Next Due COVID-19 (Pre-05/05) Pfizer Vaccine, mRNA, PF 09/26/2020 Hep A-Hep B 06/27/2011,11/26/2010,10/15/2010 INFLUENZA, SPLIT VIRUS, TRIVALENT PF 03/24/2017, 08/12/2016 Influenza High-Dose Quadriva lent Preservative Free IM 03/16/2023,04/27/2022 Influenza High-Dose Trivalen t Preservative Free IM 03/23/2021,03/21/2020,04/09/2019,04/21,05/08/2015 Influenza Trivalent Adjuvant ed Preservative free IM 04/15/2025 Pneumococcal conjugate PCV13 10/07/2017 Pneumococcal conjugate PCV20 04/08/2025 Pneumococcal polysaccharide PPSV23 09/20/2016 RSV Vaccine (bivalent) [...] Sign Reading Time Taken Comments Blood Pressure 136/77 06/13/2025 8:41 AM EST Pulse 64 06/13/2025 8:41 AM EST Temperature 36.7 C (98.1 F) 06/13/2025 8:41 AM EST Respiratory Rate 18 06/13/2025 8:41 AM EST Oxygen Saturation 99% 06/13/2025 8:41 AM EST Inhaled Oxygen Concentration - - Weight 110.7 kg (244 lb) 02/26/2024 8:20 AM EDT Height 185.4 cm (6' 1 ) 10/29/2023 8:27 AM EDT Body Mass Index 32.19 10/29/2023 8:27 AM EDT Plan of Treatment Health Maintenance Due Date Last Done Comments DEPRESSION SCREENING 1959 HEPATITIS C SCREENING 1965 LIPID PANEL 12/19/2016 12/20/2015 CREATININE LEVEL 11/16/2022 11/16/2021 POTASSIUM LEVEL 11/16/2022 11/16/2021 COVID-19 VACCINE ( season) 2025 05/09/2025, 04/27/2022, 11/10/2021, Additional history exists BLOOD PRESSURE 12/12/2025 06/13/2025 SMOKING Hx and SMOKELESS TOBACCO SCREENING 06/13/2026 06/13/2025 Adult Td,Tdap Booster 12/15/2032 12/15/2022, 011 HEPATITIS A VACCINES Aged Out 06/27/2011, 11/26/2010, 10/15/2010 No longer eligible based on patient's age to complete this topic ZOSTER VACCINES Completed 07/10/2023, 03/26/2023 RSV VACCINE Completed 04/29/2024 PNEUMOCOCCAL VACCINES (50+ years) Completed 04/08/2025, 10/07/2017, 09/20/2016 INFLUENZA VACCINE Completed 04/15/2025, , 04/27/2022, Additional history exists HIB VACCINES Aged Out No longer eligi [...] RSV, PCR Routine 06/13/2025 8:56 AM EST BASIC METABOLIC PANEL (BMP) STAT 11/16/2021 12:14 PM EDT OUTSIDE LDL Routine 12/20/2015 from Last 3 Months or Most Recently Relevant to Health Maintenance Results * XR CHEST PA AND LATERAL 2 VIEWS (06/13/2025 8:58 AM EST) Anatomical Region Laterality Modality Chest Computed Radiogr aphy 06/13/2025 8:59 AM EST Impressions 06/13/2025 9:00 AM EST No acute abnormality. Narrative 06/13/2025 9:00 AM EST XR CHEST PA AND LATERAL 2 VIEWS Reason for exam (per EHR order): Cough; productive green cough for 5 days with sob TECHNIQUE: Frontal and lateral radiographs of the chest. COMPARISON: 11/09/2024. FINDINGS: Support Devices / Implants / Lines and Tubes: None. Lungs and Pleura: No focal consolidation, pulmonary edema, pleural effusion or pneumothorax. Cardiomediastinal Silhouette: Normal. Bones/Soft Tissues: Degenerative changes of the thoracic spine. Procedure Note Kobi Escobar MBBS - 06/13/2025 XR CHEST PA AND LATERAL 2 VIEWS Reason for exam (per EHR order): Cough; productive green cough for 5 dayswith sob TECHNIQUE: Frontal and lateral radiographs of the chest. COMPARISON: 11/09/2024. FINDINGS: Support Devices / Implants / Lines and Tubes: None. Lungs and Pleura: No focal consolidation, pulmonary edema, pleuraleffusion or pneumothorax. Cardiomediastinal Silhouette: Normal. Bones/Soft Tissues: Degenerative changes of the thoracic spine. IMPRESSION: No acute abnormality. Char Martinez MICROELECTRONICS TECHNICIAN IMG XR CHEST Final Resul t * POCT SARS-CoV-2, Influenza A/B, RSV, PCR (06/13/2025 8:56 AM EST) [facility] SARS-Cov-2 PCR Negative Negative 06/13/2025 9:37 AM EST [facility] Influenza A Negative Negative 06/13/2025 9:37 AM EST [facility] Influenza B Negative Negative 06/13/2025 9:37 AM EST [facility] RSV PCR Negative Negative 06/13/2025 9:37 AM EST [facility] Swab (Anterior Nares) 06/13/2025 8:56 AM EST 06/13/2025 9:37 AM EST us Char Martinez MICROELECTRONICS TECHNICIAN LAB POCT DOCKED DEVICE UNSO LICTED RESULTS Final Result Performing Organization Address City/[facility]/ZIP Co de Phone Number [facility] [address] [address], [facility] [phone] * (ABNORMAL) Basic metabolic panel (11/16/2021 12:14 PM EDT) SODIUM 138 133 - 146 mmol/L [facility] CHLORIDE 103 96 - 108 mmol/L [facility] POTASSIUM 4.1 3.3 - 5.1 mmol/L [facility] CO2 26 21 - 35 mmol/L [facility] BUN 22(H) 6 - 19 mg/dL [facility] CREATININE 0.80 0.5 - 1.5 mg/dL [facility] GLUCOSE 103(H) 70 - 99 mg/dL [facility] CALCIUM 9.4 8.4 - 10.3 mg/dL [facility] EGFR 93 >59 mL/min/1.7 3m2 [facility] Comment:Estimated glomerular filtration rate calculated using the CKD-EPI refit equation. ANION GAP 13 10 - 20 mmol/L [facility] Blood 11/16/2021 12:1 4 PM EDT 11/16/2021 12:39 PM EDT us Supa Sands MD LAB BLOOD BKR ORD ERABLES Final Result [facility] [address] [place] [address] * Outside LDL (12/20/2015) LDL - External 163 50 - 250 mg/ml us Historical Provider LAB BLOOD ORDERABLES Dolores l Result from Last 3 Months or Most Recently Relevant to Health Maintenance Additional Health Concerns Infection Onset Date Last Indicated Resp-Risk 06/13/2025 06/13/2025 Insurance UNITED IN[employer]MNITY MEDICARE [place]RO[employer] [place] [employer] [place] [employer] MEDICARE [place] [employer] MEDICARE [place]ILROAD [employer] MEDICARE RAILROAD Member Subscriber Plan / Payer (Ef fective 2012-Present) Name:Jake Castillo Member ID:[id number] Relation to Subscriber:Self Name:Jake Castillo Subscriber ID:[id number] Payer ID:[id number] Group ID:Not on file Type:Medicare Address: [place] [phone] UNITED INDEMNITY MEDICARE RAILROAD UNITED INDEMNITY MEDICARE RAILROAD UNITED INDEMNITY MEDICARE [facility]AD [facility] Care Teams Billiard Player Relationship Specialty Start Date End Date Chay Little MD [address] [place] [address] [place] [address] PCP - General 05/01/17 Additional Source Comments The information contained in this document represents components of the legal health record. It is not the complete legal health record.[facility]
== END 2025-06-21 15:52 | disposition home or self-care (01) ==
LOC: HO.HCS 15:07
PROVIDERS: PCP Internal Medicine; Visit Provider Internal Medicine Cardiovascular Disease
DX: I25.5 Ischemic cardiomyopathy (principal); I25.10 Atherosclerotic heart disease of native coronary artery without angina pectoris
CPT/HCPCS: 99214

== ENCOUNTER → 2025-06-21 15:07 | Outpatient (BNVA) | payer MEDICARE, OTHER, SELFPAY | PROVIDERS: PCP Internal Medicine; Visit Provider Internal Medicine Cardiovascular Disease | DX: I25.5 Ischemic cardiomyopathy (principal); I25.10 Atherosclerotic heart disease of native coronary artery without angina pectoris; I10 Essential (primary) hypertension; R10.31 Right lower quadrant pain; E66.9 Obesity, unspecified; Z68.31 Body mass index [BMI] 31.0-31.9, adult; Z95.5 Presence of coronary angioplasty implant and graft | CPT/HCPCS: 99212 ==